=== PATIENT | female | born 1950 | race Caucasian/White ===

== ENCOUNTER → 2022-07-14 14:29 | Outpatient (BNVA) | payer MEDICARE, OTHER, SELFPAY | PROVIDERS: PCP Family Medicine; Visit Provider Nurse Practitioner Family | DX: R53.1 Weakness (principal); R26.9 Unspecified abnormalities of gait and mobility; M54.2 Cervicalgia; M54.50 Low back pain, unspecified | CPT/HCPCS: 99212 ==

== ENCOUNTER → 2022-10-13 15:11 | Outpatient (BNVA) | payer MEDICARE, OTHER, SELFPAY | PROVIDERS: PCP Family Medicine; Visit Provider Nurse Practitioner Family | DX: F09 Unspecified mental disorder due to known physiological condition (principal); R53.1 Weakness; R53.83 Other fatigue; R26.9 Unspecified abnormalities of gait and mobility | CPT/HCPCS: Q3014 ==

== ENCOUNTER → 2023-01-11 10:01 | Outpatient (BNVA) | payer MEDICARE, OTHER, SELFPAY | PROVIDERS: PCP Family Medicine; Visit Provider Nurse Practitioner Family | DX: R53.1 Weakness (principal); R76.8 Other specified abnormal immunological findings in serum; R26.9 Unspecified abnormalities of gait and mobility; H04.123 Dry eye syndrome of bilateral lacrimal glands; K11.7 Disturbances of salivary secretion | CPT/HCPCS: Q3014 ==

== ENCOUNTER 2023-05-03 09:05 | Outpatient (AMB) | payer MEDICARE, OTHER, SELFPAY ==
--- NOTE | 2023-05-03 09:10 | A.OFFVIS_ITS ---
Intake Vital Signs 05/03/23 09:13 Height 5 ft 4 in Weight 162 lb 14.746 oz BMI 28.0 BP 136/74 Blood Pressure Location Rt brachial Position Sitting Pulse 82 Pulse Source Pulse Oximeter Temp 97.2 F Temp Source Skin Pulse Oximetry (%) 98 Intake Visit Reasons: abnormal immunological findings in serum Intake Note: New pt presents today for consult. States she has SS, ? MS Clinical Nurse Manager Required: No Accompanied by: Self / Same As Patient Allergies Seasonal Allergies Allergy (Intermediate, Verified 05/03/23 09:15) Difficulty Breathing Sulfa (Sulfonamide Antibiotics) Allergy (Unknown, Verified 05/03/23 09:15) Swelling lilacs Allergy (Severe, Uncoded 05/03/23 09:15) Anaphylaxis sulpher Adverse Reaction (Severe, Uncoded 05/03/23 09:15) Swelling Medication List - Last Reconciled 05/03/23 by Pamella Harris MD albuterol sulfate 90 mcg/actuation 2 puffs inhalation Q4-6H PRN budesonide-formoterol 160-4.5 mcg/actuation (Symbicort) 2 puffs inhalation BID levothyroxine (Synthroid) 88 mcg PO DAILY midodrine 5 mg PO TID HPI HPI Comments History of Present Illness Details This is a 72-year-old female who presents for evaluation of a possible underlying autoimmune disorder. She states that her sister was diagnosed with SLE and 2 years ago. States that in the she had recurrent jaw swelling and mouth blisters. She stated that she had a biopsy of 1 of those blisters and Sjogren's was suspected but patient did not follow-up with a loan analyst then. About 10 years ago patient started feeling more fatigued. She also stated that she would get right footdrop, worse with activity. She was evaluated by neurologist and MS was entertained. A spinal tap was suggested but patient declined. She denies ever getting a brain MRI. She had spinal MRI recently which did not show any evidence of demyelinating disorder. Patient continues to have dry eyes. She was told she has dry eye by her ammonium nitrate crystallizer and she uses artificial tears when it annoys her every few days. She has dry mouth and uses a prescription mouthwash. She has generalized fatigue. Over the last 1-2 years her fingers turn pale in the cold. She has diffuse joint pain especially in her knees worse with walking. She also gets short of breath after climbing 2-3 flights of stairs. Recently patient fainted and was evaluated by shipping manager, tilt-table test was positive and she was prescribed midodrine. [facility] Medical History Asthma Breast cancer Postconcussion syndrome Traumatic brain injury Surgical History History of surgery of uterus Hx of bilateral mastectomy Hx of cholecystectomy Hx of tubal ligation Family History Father Liver problem Alcoholism Mother Stroke Family/Other Lupus Epilepsy Family/Other No problems noted. Social History Household Members: Spouse Household Members Other:: mercedes, older [place] Alcohol intake: former Patient Tobacco Use Status: Never used Tobacco Review of Systems Const Reports fatigue, Reports headache(s), Reports weakness and Reports weight gain Eyes Reports blurry vision and Reports dry eyes ENT Reports dizziness, Reports dry mouth and Reports headache(s) Card Reports chest pain and Reports dyspnea Resp Reports dyspnea and Reports wheezing GI Reports constipation, Reports heartburn and Reports nausea Reports sexual dysfunction and Reports vaginal dryness Musc Reports arthralgias, Reports joint swelling and Reports stiffness Skin/Breast Reports alopecia and Reports unusual bruising Neuro Reports dizziness, Reports headache(s), Reports memory loss and Reports weakness Psych Reports abnormal sleep pattern, Reports anxiety and Reports memory loss Endo Reports fatigue Aller/Immun Reports wheezing Physical Exam Vital Signs: Last Vital Signs Temp 97.2 F 05/03/23 09:13 Pulse 82 05/03/23 09:13 BP 136/74 05/03/23 09:13 Pulse Ox 98 05/03/23 09:13 BMI result Body Mass Index 28.0 Const General: cooperative, healthy appearing and comfortable Nutritional Appearance: overweight Orientation/consciousness: patient oriented x3 Limitations: no limitations HEENT Head: Yes normocephalic and Yes atraumatic Mouth: moist mucous membranes Resp Effort & Inspection: normal respiratory effort and able to speak in complete sentences Auscultation: clear to auscultation bilaterally Cardio Rate: regular rate Rhythm: regular rhythm Heart sounds: S1 normal heart sound present Skin General skin exam: no rashes or lesions noted Neuro Other: Mildly reduced superficial sensation in her right foot No footdrop bilaterally General: patient oriented x3 Extrem Other: Osteoarthritic changes of both hands with prominent Angel Luis's and Heberden's nodes. No active synovitis Range of motion of both shoulders and elbows Bilateral knee crepitus and pain with full flexion Results Reviewed Results Reviewed: Labs 10/2022? CBC unremarkable? ESR 10? CMP unremarkable? RPR nonreactive? RF negative? AVERY 1-40 dense fine speckled Assessment & Plan Assessment & Plan (1) Positive AVERY (antinuclear antibody): Code(s): R76.8 - Other specified abnormal immunological findings in serum Plan: This is a 72-year-old female who presents for evaluation of multiple complaints including dry eyes dry mouth, generalized fatigue, generalized pain, tingling and numbness of her feet. Stated that she had a biopsy of a blister in her mouth in the s and Sjogren's was suspected. States that sister had lupus. Will order comprehensive serology to screen for underlying autoimmune rheumatic disease. Plan I spent 46 minutes reviewing patient's chart, evaluating patient, ordering diagnostic workup, counseling patient and documenting in the chart Orders: Orders C Reactive Protein Today M35.00 - Sjogren syndrome, unspecified Protein Creatinine Ratio, Ur Today M35.00 - Sjogren syndrome, unspecified Erythrocyte Sedimentation Rate Today M35.00 - Sjogren syndrome, unspecified AVERY Reflex Titer and Pattern Today M35.00 - Sjogren syndrome, unspecified Complement C3 Today M35.00 - Sjogren syndrome, unspecified Complement C4 Today M35.00 - Sjogren syndrome, unspecified Anti DNA DS Antibody Today M35.00 - Sjogren syndrome, unspecified DNA Double Stranded-Crithidia Today M35.00 - Sjogren syndrome, unspecified Anti Extractable Nuclear Ag Today M35.00 - Sjogren syndrome, unspecified Immunofixation Pnl, Serum Today M35.00 - Sjogren syndrome, unspecified Protein Electrophoresis, Serum Today M35.00 - Sjogren syndrome, unspecified Sjogren's Antibodies Today M35.00 - Sjogren syndrome, unspecified UA w Microscopic Today M35.00 - Sjogren syndrome, unspecified Comprehensive Met. Panel Today M35.00 - Sjogren syndrome, unspecified Complete Blood Count Auto Diff Today M35.00 - Sjogren syndrome, unspecified Thyroglobulin Antibodies Today E05.00 - Thyrotoxicosis with diffuse goiter without thyrotoxic crisis or storm Thyroid Peroxidase Antibodies Today E05.00 - Thyrotoxicosis with diffuse goiter without thyrotoxic crisis or storm Coding Level of Care Code New Pt Level 4 (56529) Diagnoses Positive AVERY (antinuclear antibody) R76.8
[2023-05-03 09:13] VITALS: BP 136/74; PULSE 82; TEMP 36.2; O2SAT 98; BMI 28.0
== END 2023-05-03 09:52 | disposition home or self-care (01) ==
PROVIDERS: PCP Family Medicine; Visit Provider Student in an Organized Health Care Education/Training Program
DX: R76.8 Other specified abnormal immunological findings in serum (principal)
CPT/HCPCS: 99204

== ENCOUNTER → 2023-05-03 09:05 | Outpatient (BNVA) | payer MEDICARE, OTHER, SELFPAY | PROVIDERS: PCP Family Medicine; Visit Provider Student in an Organized Health Care Education/Training Program | DX: R76.8 Other specified abnormal immunological findings in serum (principal) | CPT/HCPCS: 99202 ==

== ENCOUNTER 2023-05-22 13:30 | Outpatient (AMB) | payer MEDICARE, OTHER, SELFPAY ==
[2023-05-22 13:34] VITALS: PULSE 76; O2SAT 97; BMI 28.2
--- NOTE | 2023-05-22 13:34 | A.OFFVIS_ITS ---
Intake Vital Signs 05/22/23 13:34 Height 5 ft 4 in Weight 164 lb 6 oz BMI 28.2 Position Sitting Pulse 76 Pulse Source Pulse Oximeter Pulse Oximetry (%) 97 Oxygen Delivery Method Room Air Intake Visit Reasons: follow up Intake Note: Pt presents as a f/u. Pt states things have been pretty rough. Saw a Dr and she wants to know where do we go from here. The provider she saw said she should have had a brain MRI or scan. Powder Guard Required: No Accompanied by: Spouse Allergies Seasonal Allergies Allergy (Intermediate, Verified 05/22/23 13:39) Difficulty Breathing Sulfa (Sulfonamide Antibiotics) Allergy (Unknown, Verified 05/22/23 13:39) Swelling lilacs Allergy (Severe, Uncoded 05/22/23 13:39) Anaphylaxis sulpher Adverse Reaction (Severe, Uncoded 05/22/23 13:39) Swelling Medication List - Last Reconciled 05/22/23 by JAMMIE Evans albuterol sulfate 90 mcg/actuation 2 puffs inhalation Q4-6H PRN levothyroxine (Synthroid) 88 mcg PO DAILY midodrine 2.5 mg PO TID HPI HPI Comments History of Present Illness Details 73-yr-old female presents for f/u visit, accompanied by her . Pt reports that she is overall not feeling as well. She is having increased SOB and episodes of chest tightness. She is using her albuterol inhaler almost daily now. She was given a Symbacort inhaler a while ago, but has not used it. Denies LUE tingling, sharp chest pains. She is still prone to episodes of fatigue, a/w feeling warm and having GI upset- for instance, she took a day trip to a [place] and then next day felt very unwell all day. She can still be lightheaded. Taking Mididrone. Has reduced fluid intake and trying to take more salt- previously was drinking galloons per day. Her notes that pt tries to stay active, swims/walks in their pool- 30- 45min 1-2 x's per day. She did see rheumatology, and is not sure what her next steps are. She has not yet done the labs ordered- was not sure where to do them. Previous work-up: Recent CBC, CMP, B-12, Folate, MMA, ESR, RF < 14, AVERY positive, 1:40, fine speckled pattern. Homocysteine- 12.3 H Tilt-table at [facility],?11/28/2022: Head-up tilt table test is positive for neurocardiogenic syncope. Primarily vaso-depressive response. 0 Minutes (Supine): 129/79 HR 70 No symptoms 2 Minutes (Standing @ 70 degree Tilt): 152/89 HR 85 No symptoms 4 Minutes (Standing): ?142/86 HR 81 No symptoms 6 minutes (Standing): 148/85 HR 89 No symptoms 8 Minutes (Standing): ?135/87 HR 99 No symptoms 10 Minutes (Standing): 116/90 HR 104 No symptoms 12 minutes (Standing): 137/93 HR 112 No symptoms 14 minutes (Standing): 117/94 HR 108 No symptoms 16 Minutes (Standing): 143/108 HR 103 No symptoms 18 Minutes (Standing): 112/77 HR 106 No symptoms 20 Minutes (Standing) ?97/ 69 HR 107 No symptoms 22 Minutes (Standing): 95/ 75 HR 113 Feeling clammy, nausea, cold and sweaty 24 Minutes (Standing): 97/70 HR 109 Feeling better 26 Minutes (Standing): 83/67 ?HR 113 Feeling sweaty? 28 Minutes (Standing): 93/71 HR 107 Still feeling sweaty, weak 30 Minutes (Standing): 68/45 HR 82 Nausea, feeling going to throw up,(Syncopal episode), patient lowered to supine position, patient regained consciousness? 32 Minutes (Supine): 114/68 HR 63 symptoms resolving? 24 hr EEG at [facility], Oct 2022 : Normal L-spine MRI 07/2022 at [facility]- small L4-5 disc protrusion w/ L3-4 and L5-S1 disc bulging. Bilateral recess stenosis at L3-4 and L4-5 w/o significant central canal stenosis. right L4-5 neural foraminal impingement. C-spine MRI w/o (07/2022 at [facility]): No evidence of demyelinating process. degenerative disc disease and disc spur at C4-5 w/o central canal stenosis, multilevel neural foraminal stenosis. 2019 at [facility]:BLE EMG was normal. Brain MRI w/wo- showed mild scattered white matter changes, not consistent with a demyelinating process. Baseline EEG revealed left temporal region presence of a few blunted sharp forms and sharply contoured slowing. Pt was asymptomatic during the study. [facility] Medical History Asthma Breast cancer Postconcussion syndrome Traumatic brain injury Surgical History History of surgery of uterus Hx of bilateral mastectomy Hx of cholecystectomy Hx of tubal ligation Family History Father Liver problem Alcoholism Mother Stroke Family/Other Lupus Epilepsy Family/Other No problems noted. Social History (Updated 05/22/23 @ 13:41 by Mckenzie Dallas CMA) Household Members: Spouse Household Members Other:: [facility] Alcohol intake: former Patient Tobacco Use Status: Never used Tobacco Use of substances other than those prescribed or required for medical reasons: No Review of Systems Const All systems reviewed & are unremarkable except as noted in HPI and below Physical Exam Vital Signs: Last Vital Signs Pulse 76 05/22/23 13:34 Pulse Ox 97 05/22/23 13:34 Oxygen Delivery Method Room Air 05/22/23 13:34 BMI result Body Mass Index 28.2 Const General: cooperative and no acute distress Orientation/consciousness: patient oriented x3 HEENT Head: Yes normocephalic Resp Effort & Inspection: normal respiratory effort and able to speak in complete sentences Auscultation: clear to auscultation bilaterally Cardio Rate: regular rate Rhythm: regular rhythm Neuro General: patient oriented x3 and CN's II-XI intact bilaterally Cognition (Neuro): normal cognition Gait exam (Neuro): Antalgic gait present Motor exam (neuro): 5/5 motor strength present throughout Psych Appearance: grossly normal Mental Status: mental status grossly normal Speech and movement: Normal speech and movement present Affect: normal affect Attitude: cooperative Thought process: Normal thought process present Thought content: Normal thought content present Insight: Good insight present (Psych) Judgement: Good judgement present (Psych) Assessment & Plan Assessment & Plan (1) Weakness: Code(s): R53.1 - Weakness (2) Gait difficulty: Code(s): R26.9 - Unspecified abnormalities of gait and mobility (3) Cognitive dysfunction: Comment: chronic post-concussive. Code(s): F09 - Unspecified mental disorder due to known physiological condition Plan Pt advised to have lab work done as ordered by rheumatology- labs printed and given to pt. Pt reports if any labs are abnormal- they would like referral to Dr Sheridan at [facility]. Pt advised to start her symbicort and f/u w/ her PCP. Reviewed CV/Pulm red flag s/s which warrant urgent attention. Future considerations: f/u brain MRI,? f/u neuropsych eval. Pt requests to f/u prn. Coding Level of Care Code Est Pt Level 3 (13900) Diagnoses Weakness R53.1 Gait difficulty R26.9 Cognitive dysfunction F09
== END 2023-05-22 14:22 | disposition home or self-care (01) ==
PROVIDERS: PCP Family Medicine; Visit Provider Nurse Practitioner Family
DX: R53.1 Weakness (principal); R26.9 Unspecified abnormalities of gait and mobility; S06.0XAS Concussion with loss of consciousness status unknown, sequela; F09 Unspecified mental disorder due to known physiological condition
CPT/HCPCS: 99213

== ENCOUNTER → 2023-05-22 13:30 | Outpatient (BNVA) | payer MEDICARE, OTHER, SELFPAY | PROVIDERS: PCP Family Medicine; Visit Provider Nurse Practitioner Family | DX: R53.1 Weakness (principal); R26.9 Unspecified abnormalities of gait and mobility; F09 Unspecified mental disorder due to known physiological condition | CPT/HCPCS: 99212 ==

== ENCOUNTER 2024-09-29 10:21 | Outpatient (AMB) | payer MEDICARE, OTHER, SELFPAY ==
--- NOTE | 2024-09-29 10:23 | A.OFFVIS_ITS ---
Vital Signs 09/29/24 10:26 Height 5 ft 4 in Weight 154 lb BMI 26.4 BP 124/74 Blood Pressure Location Rt brachial Position Sitting Pulse 74 Pulse Source Pulse Oximeter Pulse Oximetry (%) 99 Oxygen Delivery Method Room Air Intake Visit Reasons: Follow Up Accompanied by: Self / Same As Patient Allergies Seasonal Allergies Allergy (Intermediate, Verified 09/29/24 10:27) Difficulty Breathing Sulfa (Sulfonamide Antibiotics) Allergy (Unknown, Verified 09/29/24 10:27) Swelling lilacs Allergy (Severe, Uncoded 05/22/23 13:39) Anaphylaxis sulpher Adverse Reaction (Severe, Uncoded 05/22/23 13:39) Swelling Medication List - Last Reconciled 09/29/24 by Autumn Vásquez, JAMMIE albuterol sulfate 90 mcg/actuation 2 puffs inhalation Q4-6H PRN levothyroxine (Synthroid) 88 mcg PO DAILY midodrine 2.5 mg PO TID Do you need a note to return to daycare/school/sports/work: No HPI Comments Details: 74-yr-old female presents for f/u of neurological s/s. Pt reports she has completed work-up with Dr. Sibley. Per pt, she was advised that she could not confirm that patient has a a demyelinating or central autoimmune disorder. She reports that she is now more concerned with progressing lower extremity weakness and breathlessness upon exertion. She recently saw her supervisor mails, who per pt, 2 weeks ago, tried her on Prednisone burst 40mg po daily to see if her s/s were responsive to immunosuppression. Pt reports that her s/s were markedly improved as she completed the course of Prednisone- she stated the pain in her legs resolved, she was able to walk 2 miles w/o significant SOB. She was then weaned off of the Prednisone, and her symptoms returned. She spoke to her school director, Dr Lira at [facility], about ? of MG work-up- and was advised to f/u with neuro. 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 She does take a mile walk most mornings, some days she can do this with SOB but never gets stronger or better at this walk. On other days, she can barely make it up the hill, the legs feel weak, sick- like having the flu. After returning from the walk, she may need to sit for an hour, and then the legs are still sore, heavy, uncoordinated. To get up from the ground, she has to jyoti her upper body to pull herself up. She does try to practice getting up from her knees a few times a day. She tends to avoid doing activities over her head. When she brings in groceries, she does several trips of smaller bags. In the last 6 months, she has fallen going up the stairs about 6 times, and down the stairs about 2 times. She had a recent fall while walking on a dusting of snow w/ her dog. PCP has advised her to use a cane- not yet doing this. Can write-not as smooth as before, has to hold her pen slightly differently- attributes to RA dx. Some difficulty w/ buttons/tying laces. Does ok w/ zippers. Dry eye. Denies usual diplopia. May look tired, but denies eye droop. Mild hyposmia and tast sensation since she had chemo. Has to be conscious when swallowing- has to take fluids w/ glue bone drier foods- attributes to Sjogren's. She can feel not right in space dizziness when sitting in a chair, and has orthostatic lightheadedness and room spinning dizziness. No longer taking midodrine for dysautonomia- as it was causing HTN. Takes fluids ok- mostly water, coffee, occasionally milk. Likes salt- salts her meals. Denies tremor or shakiness. BLE muscle cramps (feet/lower legs, but the other day up to her thighs) at rest during the day and night- can be intense. BLE shins through toes, and BUE elbows to fingers, and face- lips- numbness and tingling. In the last year, she had 2 separate week long episodes of urinary incontinence- which self-resolved. She has recent dx of gastroparesis, constipation, but may also have periods of diarrhea. She does talk in her sleep, in the past she has tried to get out bed as she was dreaming that she needed to get up. Previous work-up: Recent CBC, CMP, B-12, Folate, MMA, ESR, RF < 14, AVERY positive, 1:40, fine speckled pattern. Homocysteine- 12.3 H Tilt-table at [facility],?11/28/2022: Head-up tilt table test is positive for neurocardiogenic syncope. Primarily vaso-depressive response. 0 Minutes (Supine): 129/79 HR 70 No symptoms 2 Minutes (Standing @ 70 degree Tilt): 152/89 HR 85 No symptoms 4 Minutes (Standing): ?142/86 HR 81 No symptoms 6 minutes (Standing): 148/85 HR 89 No symptoms 8 Minutes (Standing): ?135/87 HR 99 No symptoms 10 Minutes (Standing): 116/90 HR 104 No symptoms 12 minutes (Standing): 137/93 HR 112 No symptoms 14 minutes (Standing): 117/94 HR 108 No symptoms 16 Minutes (Standing): 143/108 HR 103 No symptoms 18 Minutes (Standing): 112/77 HR 106 No symptoms 20 Minutes (Standing) ?97/ 69 HR 107 No symptoms 22 Minutes (Standing): 95/ 75 HR 113 Feeling clammy, nausea, cold and sweaty 24 Minutes (Standing): 97/70 HR 109 Feeling better 26 Minutes (Standing): 83/67 ?HR 113 Feeling sweaty? 28 Minutes (Standing): 93/71 HR 107 Still feeling sweaty, weak 30 Minutes (Standing): 68/45 HR 82 Nausea, feeling going to throw up,(Syncopal episode), patient lowered to supine position, patient regained consciousness? 32 Minutes (Supine): 114/68 HR 63 symptoms resolving? 24 hr EEG at [facility], Oct 2022 : Normal L-spine MRI 07/2022 at [facility]- small L4-5 disc protrusion w/ L3-4 and L5-S1 disc bulging. Bilateral recess stenosis at L3-4 and L4-5 w/o significant central canal stenosis. right L4-5 neural foraminal impingement. C-spine MRI w/o (07/2022 at [facility]): No evidence of demyelinating process. degenerative disc disease and disc spur at C4-5 w/o central canal stenosis, multilevel neural foraminal stenosis. 2019 at [facility]:BLE EMG was normal. Brain MRI w/wo- showed mild scattered white matter changes, not consistent with a demyelinating process. Baseline EEG revealed left temporal region presence of a few blunted sharp forms and sharply contoured slowing. Pt was asymptomatic during the study. [facility] Medical History Asthma Breast cancer Postconcussion syndrome Traumatic brain injury Surgical History History of surgery of uterus Hx of bilateral mastectomy Hx of cholecystectomy Hx of tubal ligation Family History Father Liver problem Alcoholism Mother Stroke Family/Other Lupus Epilepsy Family/Other No problems noted. Social History (Updated 05/22/23 @ 13:41 by Mckenzie Dallas CMA) Household Members: Spouse Household Members Other:: [facility] Alcohol intake: former Patient Tobacco Use Status: Never used Tobacco Physical Exam Vital Signs: Last Vital Signs Pulse 74 09/29/24 10:26 BP 124/74 09/29/24 10:26 Pulse Ox 99 09/29/24 10:26 Oxygen Delivery Method Room Air 09/29/24 10:26 BMI result Body Mass Index 26.4 Const General: cooperative and no acute distress Resp Effort & Inspection: normal respiratory effort and able to speak in complete sentences Neuro Other: General: A&O x's 3 Expression: Intact Voice: Intact Tremor: Mild lingual tremor on protrusion. Mild RUE kinetic tremor on [id number] exam without dysmetria Tone: Mild BUE left greater than right elbow tone Dyskinesia: None FFM: Bilateral, more so on left, poor fluidity Finger-Nose: Mild RUE kinetic tremor without dysmetria BUE LILA: Bilateral, more so on left, poor fluidity Foot taps: Bilateral, more so on left, decreased Gait: Slow to stand, shorter steps with low floor clearance Psych: Pleasant affect RLE MS: 5/5 LLE MS: 4+-5-/5 General: deep tendon reflexes 2+ bilaterally Psych Mental Status: mental status grossly normal Affect: normal affect Attitude: cooperative Thought process: Normal thought process present Assessment & Plan Assessment & Plan (1) Gait difficulty: Code(s): R26.9 - Unspecified abnormalities of gait and mobility Category: Medical (2) Parasomnia: Code(s): G47.50 - Parasomnia, unspecified Category: Medical (3) Hypersomnia: Code(s): G47.10 - Hypersomnia, unspecified Category: Medical (4) Snoring: Code(s): R06.83 - Snoring Category: Medical (5) Weakness: Code(s): R53.1 - Weakness Category: Medical (6) Cognitive dysfunction: Comment: chronic post-concussive. Code(s): F09 - Unspecified mental disorder due to known physiological condition Category: Medical Plan Reviewed patient's previous workup and her current symptoms. Her previous workup has not elicited a clear etiology or explanation for her progressing symptoms, fatigue, leg heaviness, gait difficulties, orthostatic lightheadedness. This raises suspicion for a movement disorder process. Thus, patient is advised to undergo DaTSCAN to assess for evidence of dopaminergic pathway dysfunction. Upon review of DaTSCAN, we can consider trial of low-dose levodopa, being mindful of patient's tendency for orthostatic lightheadedness. In the meantime, patient encouraged to use a cane. Patient is also advised to undergo in-lab PSG to assess for sleep apnea. Patient requested both tests be done in November to accommodate her 's work schedule. Will follow-up upon review of above and patient to follow-up in clinic in 3-6 months or sooner prn. Addendum 10/14/2024, patient notify the office that she would like to schedule the DaTSCAN sooner than November if possible. DaTSCAN order updated with new order date. Orders: Orders DaTscan 11/10/24 F09 - Unspecified mental disorder due to known physiological condition, R26.9 - Unspecified abnormalities of gait and mobility, G47.50 - Parasomnia, unspecified, G47.10 - Hypersomnia, unspecified, R06.83 - Snoring RT PSG in-lab sleep study 11/10/24 G47.50 - Parasomnia, unspecified, G47.10 - Hypersomnia, unspecified, R06.83 - Snoring Coding Level of Care Code Est Pt Level 4 (03994) Diagnoses Gait difficulty R26.9 Parasomnia G47.50 Hypersomnia G47.10 Snoring R06.83 Weakness R53.1 Cognitive dysfunction F09
[2024-09-29 10:26] VITALS: BP 124/74; PULSE 74; O2SAT 99; BMI 26.4
--- OUTSIDE RECORDS SUMMARY | 2024-09-29 10:27 | XMS_ITS ---
Author Name [facility] Organization Unknown History of Medication Use Medication Directions Dispensed Refills Start Date End Date Stat albuterol 108 (90 Base) MCG/ACT inhaler Inhale 2 puffs into the lungs every 6 (six) hours as needed. 07/16/2024 active hydroxychloroquine (PLAQUENIL) 200 MG tablet Take 1 tablet (200 mg total) by mouth daily. 07/16/2024 active Aspirin Low Dose 81 MG EC tablet Take 1 tablet (81 mg total) by mouth daily. 07/16/2024 active levothyroxine (SYNTHROID) tablet 112 mcg Take 1 tablet (112 mcg total) by mouth daily. 07/16/2024 active rosuvastatin (CRESTOR) tablet 5 mg Take 1 tablet (5 mg total) by mouth daily. 07/16/2024 active folic acid (FOLVITE) tablet 1 mg Take 1 tablet (1 mg total) by mouth. 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
== END 2024-09-29 11:49 | disposition home or self-care (01) ==
PROVIDERS: PCP Family Medicine; Visit Provider Nurse Practitioner Family
DX: R26.9 Unspecified abnormalities of gait and mobility (principal); G47.50 Parasomnia, unspecified; G47.10 Hypersomnia, unspecified; R06.83 Snoring; R53.1 Weakness; R41.89 Other symptoms and signs involving cognitive functions and awareness
CPT/HCPCS: 99214

== ENCOUNTER → 2024-09-29 10:21 | Outpatient (BNVA) | payer MEDICARE, OTHER, SELFPAY | PROVIDERS: PCP Family Medicine; Visit Provider Nurse Practitioner Family | DX: G47.50 Parasomnia, unspecified (principal); G47.10 Hypersomnia, unspecified; R26.9 Unspecified abnormalities of gait and mobility; R06.83 Snoring; R53.1 Weakness; F09 Unspecified mental disorder due to known physiological condition | CPT/HCPCS: 99212 ==

== ENCOUNTER → 2024-11-12 20:30 | Outpatient (REF) | payer MEDICARE, OTHER, SELFPAY | LOC: HO.SL 20:30 | PROVIDERS: PCP Family Medicine; Visit Provider Nurse Practitioner Family | DX: G47.33 Obstructive sleep apnea (adult) (pediatric) (principal); R06.83 Snoring | CPT/HCPCS: 95810 ==

== ENCOUNTER → 2024-11-12 21:58 | Outpatient (BNV) | payer MEDICARE, OTHER, SELFPAY | PROVIDERS: PCP Family Medicine; Visit Provider Psychiatry & Neurology Neurology | DX: G47.33 Obstructive sleep apnea (adult) (pediatric) (principal) | CPT/HCPCS: 95810 ==

== ENCOUNTER 2024-12-26 07:36 | Outpatient (AMB) | payer MEDICARE, OTHER, SELFPAY ==
--- NOTE | 2024-12-26 07:34 | A.OFFVIS_ITS ---
Intake Visit Reasons: 3 mo follow up Allergies Seasonal Allergies Allergy (Intermediate, Verified 12/26/24 07:34) Difficulty Breathing Sulfa (Sulfonamide Antibiotics) Allergy (Unknown, Verified 12/26/24 07:34) Swelling lilacs Allergy (Severe, Uncoded 05/22/23 13:39) Anaphylaxis sulpher Adverse Reaction (Severe, Uncoded 05/22/23 13:39) Swelling Medication List - Last Reconciled 12/26/24 by Autumn Vásquez, BASS FISHER albuterol sulfate 90 mcg/actuation 2 puffs inhalation Q4-6H PRN carbidopa-levodopa 25-100 mg 0.5 - 1 tabs PO BID 30 days levothyroxine (Synthroid) 88 mcg PO DAILY midodrine 2.5 mg PO TID HPI Comments Details: 74-yr-old female presents for f/u televeideo visit for movement symptoms, DaTscan, sleep stud study results. 11/21/2024, JONATHON scan- no evidence of a dopaminergic deficit. 11/12/2024 In-lab PSG showed AHI 21/hour and REM AHI 51/hour, average SpO2 94% with O2 kwame 84% and SpO2 under 88% for 1.2 minute of study time. Snoring was moderate. Average heart rate 66 beats per minute with highest pulse rate during sleep 81 beats per minute. Periodic limb movement of sleep 13/hour and PLMS debi usal index 2.6 per hour. Since last visit, we reviewed the DaTSCAN results with the patient, which was negative for a clear dopaminergic deficit. Patient agreed to trial on carbidopa levodopa to see if this would help, overall, she has felt that the initial trial of low-dose carbidopa levodopa has been beneficial. Pt reports she has notices some changes since starting CD-LD 25-100mg 1 tab at 7am and 1pm. She is tolerating the CD-LD well. Since starting, she has avoided protein during the day to optimize effect, but is taking 100gm protein at dinner/evening. The first change she noticed was decreased left thigh stiffness and improved ability to walk- her noticed even more, as she is able to walk much better in the evening. Her speech feels more fluid, less delayed. She is now noticing that her swallowing issue is more d/t incoordinated chewing- at times biting her inner cheek- and having some drooling while chewing. and then is swallowing before chewing well. She has noticed improved ability overall to do her day to day activities. She did not notice much reduction in tremor- was noticing this particularly with realism. 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 She is now notiicng her arms are not as heavy and feel a bit looser. After dinner, she notices a mild hand tremor while painting. She does continue to become dizzy- it is less frequent and not as severe- not worse since starting CD-LD. She did stop midodrine prior to starting CD-LD. In regards to her sleep and daytime tiredness, her sleep study did show moderate sleep apnea, however she notes that at home she typically sleeps with her head elevated at about 20 degrees, and her mattressed we will raise the head of her bed when she is snoring. However, during the sleep study, she slept a flat position. She typically prefers to sleep in her left side position. She does not think she would be able to tolerate using a CPAP machine, as she is quite claustrophobic. Upon further review of the sleep study, it is noted that all sleep apnea and associated hypoxemia occurred while in the supine position, and none in the left or right sleeping position. 09/29/2024 HPI: Pt reports she has completed work-up with Dr. Sibley. Per pt, she was advised that she could not confirm that patient has a a demyelinating or central autoimmune disorder. She reports that she is now more concerned with progressing lower extremity weakness and breathlessness upon exertion. She recently saw her drapery head former, who per pt, 2 weeks ago, tried her on Prednisone burst 40mg po daily to see if her s/s were responsive to immunosuppression. Pt reports that her s/s were markedly improved as she completed the course of Prednisone- she stated the pain in her legs resolved, she was able to walk 2 miles w/o significant SOB. She was then weaned off of the Prednisone, and her symptoms returned. She spoke to her medical assistant internal medicine, Dr Lira at [facility], about ? of MG work-up- and was advised to f/u with neuro. 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 She does take a mile walk most mornings, some days she can do this with SOB but never gets stronger or better at this walk. On other days, she can barely make it up the hill, the legs feel weak, sick- like having the flu. After returning from the walk, she may need to sit for an hour, and then the legs are still sore, heavy, uncoordinated. To get up from the ground, she has to jyoti her upper body to pull herself up. She does try to practice getting up from her knees a few times a day. She tends to avoid doing activities over her head. When she brings in groceries, she does several trips of smaller bags. In the last 6 months, she has fallen going up the stairs about 6 times, and down the stairs about 2 times. She had a recent fall while walking on a dusting of snow w/ her dog. PCP has advised her to use a cane- not yet doing this. Can write-not as smooth as before, has to hold her pen slightly differently- attributes to RA dx. Some difficulty w/ buttons/tying laces. Does ok w/ zippers. Dry eye. Denies usual diplopia. May look tired, but denies eye droop. Mild hyposmia and tast sensation since she had chemo. Has to be conscious when swallowing- has to take fluids w/ suction drum drier operator foods- attributes to Sjogren's. She can feel not right in space dizziness when sitting in a chair, and has orthostatic lightheadedness and room spinning dizziness. No longer taking mid odrine for dysautonomia- as it was causing HTN. Takes fluids ok- mostly water, coffee, occasionally milk. Likes salt- salts her meals. Denies tremor or shakiness. BLE muscle cramps (feet/lower legs, but the other day up to her thighs) at rest during the day and night- can be intense. BLE shins through toes, and BUE elbows to fingers, and face- lips- numbness and tingling. In the last year, she had 2 separate week long episodes of urinary incontinence- which self-resolved. She has recent dx of gastroparesis, constipation, but may also have periods of diarrhea. She does talk in her sleep, in the past she has tried to get out bed as she was dreaming that she needed to get up. Previous work-up: Recent CBC, CMP, B-12, Folate, MMA, ESR, RF < 14, AVERY positive, 1:40, fine speckled pattern. Homocysteine- 12.3 H Tilt-table at [facility],?11/28/2022: Head-up tilt table test is positive for neurocardiogenic syncope. Primarily vaso-depressive response. 0 Minutes (Supine): 129/79 HR 70 No symptoms 2 Minutes (Standing @ 70 degree Tilt): 152/89 HR 85 No symptoms 4 Minutes (Standing): ?142/86 HR 81 No symptoms 6 minutes (Standing): 148/85 HR 89 No symptoms 8 Minutes (Standing): ?135/87 HR 99 No symptoms 10 Minutes (Standing): 116/90 HR 104 No symptoms 12 minutes (Standing): 137/93 HR 112 No symptoms 14 minutes (Standing): 117/94 HR 108 No symptoms 16 Minutes (Standing): 143/108 HR 103 No symptoms 18 Minutes (Standing): 112/77 HR 106 No symptoms 20 Minutes (Standing) ?97/ 69 HR 107 No symptoms 22 Minutes (Standing): 95/ 75 HR 113 Feeling clammy, nausea, cold and sweaty 24 Minutes (Standing): 97/70 HR 109 Feeling better 26 Minutes (Standing): 83/67 ?HR 113 Feeling sweaty? 28 Minutes (Standing): 93/71 HR 107 Still feeling sweaty, weak 30 Minutes (Standing): 68/45 HR 82 Nausea, feeling going to throw up,(Syncopal episode), patient lowered to supine position, patient regained consciousness? 32 Minutes (Supine): 114/68 HR 63 symptoms resolving? 24 hr EEG at [facility], Oct 2022 : Normal L-spine MRI 07/2022 at [facility]- small L4-5 disc protrusion w/ L3-4 and L5-S1 disc bulging. Bilateral recess stenosis at L3-4 and L4-5 w/o significant central canal stenosis. right L4-5 neural foraminal impingement. C-spine MRI w/o (07/2022 at [facility]): No evidence of demyelinating process. degenerative disc disease and disc spur at C4-5 w/o central canal stenosis, multilevel neural foraminal stenosis. 2019 at [facility]:BLE EMG was normal. Brain MRI w/wo- showed mild scattered white matter changes, not consistent with a demyelinating process. Baseline EEG revealed left temporal region presence of a few blunted sharp forms and sharply contoured slowing. Pt was asymptomatic during the study. [facility] Medical History Traumatic brain injury Asthma Postconcussion syndrome Breast cancer Surgical History History of surgery of uterus Hx of cholecystectomy Hx of bilateral mastectomy Hx of tubal ligation Family History Father Liver problem Alcoholism Mother Stroke Family/Other Lupus Epilepsy Family/Other No problems noted. Social History Household Members: Spouse Household Members Other:: mercedes, [facility] Alcohol intake: former Patient Tobacco Use Status: Never used Tobacco Physical Exam Const General: cooperative and no acute distress Orientation/consciousness: patient oriented x3 Resp Effort & Inspection: normal respiratory effort and able to speak in complete sentences Neuro General: patient oriented x3 Cognition (Neuro): normal cognition Psych Appearance: grossly normal Mental Status: mental status grossly normal Affect: normal affect Attitude: cooperative Telehealth Telehealth Telehealth Platform: [employer] Location of provider rendering services: practice address Location of patient: address on file Patient Identification confirmed using: Name, : Yes Telehealth method: video Patient verbally consented to treatment: Yes Patient verbally consented to billing insurance company: Yes Patient informed of any privacy concerns related to visit: Yes Minutes spent on Phone/Video with Pt.: 35 Assessment & Plan Assessment & Plan (1) Gait difficulty: Code(s): R26.9 - Unspecified abnormalities of gait and mobility Category: Medical (2) Parasomnia: Code(s): G47.50 - Parasomnia, unspecified Category: Medical (3) Hypersomnia: Code(s): G47.10 - Hypersomnia, unspecified Category: Medical (4) Snoring: Code(s): R06.83 - Snoring Category: Medical (5) Weakness: Code(s): R53.1 - Weakness Category: Medical (6) Cognitive dysfunction: Comment: chronic post-concussive. Code(s): F09 - Unspecified mental disorder due to known physiological condition Category: Medical (7) Dysphagia: Code(s): R13.10 - Dysphagia, unspecified Category: Medical (8) Movement disorder: Code(s): G25.9 - Extrapyramidal and movement disorder, unspecified Category: Medical Plan Reviewed DaTSCAN results, which were normal. At this point, patient's movements symptoms do appear levodopa responsive. Discussed that I would like patient to continue on carbidopa levodopa for a little longer, and to see her back in office in person, prior to establishing a firm specific movement disorder diagnosis. Discussed that a negative DaTSCAN does not entirely rule out specific movement disorders, including PD. Continue carbidopa levodopa 25-100 mg 1 tab b.i.d. at 7am and 1pm. Patient advised she does not need to avoid eating protein during the day, rather ideally she can take carbidopa levodopa 30 minutes before or 2 hours after eating protein/a full meal. I would like to see if carbidopa levodopa continues to be as effective, with patient eating her typical meal pattern. Monitor for increase in orthostatic lightheadedness/dizziness. Continue increase physical activity, including daily walks. Continue painting, advised she may want to plan to do detailed painting in the morning. We will refer for speech therapy eval and treat for dysphagia and chewing difficulties. We will request at [facility], as this is closer to patient's home. Reviewed in-lab sleep study results which showed moderate sleep apnea, however patient declines trial of CPAP due to claustrophobia. Patient encouraged to sleep on her side, or with head elevated. Reviewed OTC devices that can help train someone to sleep on her side. Future considerations: Mandibular device, ENT consult. Repeat sleep study, with head of bed elevated to 20 degrees (which is patient's typical sleeping position). Pt to follow-up in 3-4 months or sooner prn. Orders: Referrals Speech and Hearing Referral G25.9 - Extrapyramidal and movement disorder, unspecified, R13.10 - Dysphagia, unspecified Coding Level of Care Code Tele Est Pt Level 4 (40608) Diagnoses Gait difficulty R26.9 Parasomnia G47.50 Hypersomnia G47.10 Snoring R06.83 Weakness R53.1 Cognitive dysfunction F09 Dysphagia R13.10 Movement disorder G25.9
--- OUTSIDE RECORDS SUMMARY | 2024-12-26 07:38 | XMS_ITS | Clinical Summary ---
Author Organization [address] [facility] Address [address] [place] [address] Phone Care Team Providers Care Customer Operations Specialist Name Role Phone Unavailable Primary Care Provider Unavailabl e Allergies Active Allergy Reactions Criticality Noted Date Comments Pollen Extracts 09/10/2024 Sulfur 09/10/2024 Medications levothyroxine (SYNTHROID, LEVOTHROID) 88 mcg tablet Take 1 tablet (88 mcg total) by mouth daily. Active albuterol HFA (PROAIR HFA ; PROVENTIL HFA ; VENTOLIN HFA) 90 mcg/actuation inhaler Inhale 2 puffs by mouth every 6 hours as needed. Active aspirin 81 mg EC tablet Take 1 tablet (81 mg total) by mouth 1 (one) time each day. Active loratadine (CLARITIN) 10 mg tablet Take 1 tablet (10 mg total) by mouth. Active Immunizations Name Administration Dates Next Due [facility] SARS-CoV-2 COVID -19, vector-nr, [id number], preservative free 12/18/2020 Surgical History Surgery Date Site/Laterality Comments OTHER SURGICAL HISTORY PROCEDURE:DOUBLE MASTECTOMY GALLBLADDER SURGERY PROCEDURE:GALLBLADDER SURGERY MYOMECTOMY PROCEDURE:MYOMECTOMY SKIN CANCER EXCISION PROCEDURE:SKIN CANCER EXCISION Medical History Medical History Date Comments Hypothyroidism DX:Hypothyroidis m Pure hypercholesterolemia DX:Pur e hypercholesterolemia Social History Tobacco Use Types Packs/Day Years Used Date Smoking Tobacco: Never Assessed Comments Unknown Sex and Gender Information Value Date Recorded Sex Assigned at Not on file Legal Sex Female 1:49 PM EDT Gender Identity Not on file Sexual Orientation Not on file Obstetrics History Last Filed Vital Signs Vital Sign Reading Time Taken Comments Blood Pressure 116/80 09/10/2024 4:03 PM EST Pulse 71 09/10/2024 4:03 PM EST Temperature 36.1 ??C (96.9 ??F) 09/10/2024 4:03 PM ES T Respiratory Rate - - Oxygen Saturation 97% 09/10/2024 4:03 PM EST Inhaled Oxygen Concentration - - Weight 78.9 kg (174 lb) 09/10/2024 4:03 PM EST Height 162.6 cm (5' 4 ) 09/10/2024 4:03 PM EST Body Mass Index 29.87 09/10/2024 4:03 PM EST Plan of Treatment Health Maintenance Due Date Last Done Comments Breast Cancer Screening 1950 Zoster Vaccines (1 of 2) 1971 Colorectal Cancer Screening: Colonoscopy 07/24/2024 Depression Screening 07/24/2024 Falls Risk Assessment 07/24/2024 Hepatitis C Screening 07/24/2024 Medicare Annual Wellness Visit 07/24/2024 Social Influencers of Health Screening 07/24/2024 Osteoporosis Screening (Bone Density Screening) 10/17/2027 10/17/2017 Cholesterol Screening (Lipid Panel) 01/16/2028 01/15/2023 DTaP,Tdap,and Td Vaccines (4 - Td or Tdap) 03/26/2029 03/26/2019, 11/27/2007, 10/15/1997 Pneumococcal Vaccine: 50+ Years Completed 09/22/2021, 09/10/2017, 10/13/2013 RSV Immunization Patients 60+ Years Old Completed 11/04/2023 Influenza Vaccine Completed 08/07/2024, , 07/06/2022, Additional history exists COVID-19 Vaccine Completed 08/12/2024, , 07/31/2022, Additional history exists HIB Vaccines Aged Out No longer eligi ble based on patient's age to complete this topic HPV Vaccines Aged Out No longer eligi ble based on patient's age to complete this topic Hepatitis A Vaccines Aged Out No long er eligible based on patient's age to complete this topic Hepatitis B Vaccines Aged Out No long er eligible based on patient's age to complete this topic IPV Vaccines Aged Out No longer eligi ble based on patient's age to complete this topic MMR Vaccines Aged Out No longer eligi ble based on patient's age to complete this topic Meningococcal ACWY Vaccine Aged Out N o longer eligible based on patient's age to complete this topic Meningococcal B Vacine Aged Out No lo nger eligible based on patient's age to complete this topic RSV Immunization Patients Under 20 months Aged Out No longer eligible based on patient's age to complete this topic Varicella Vaccines Aged Out No longer eligible based on patient's age to complete this topic Insurance [facility]
--- OUTSIDE RECORDS SUMMARY | 2024-12-26 07:38 | XMS_ITS | Clinical Summary ---
Author Organization [facility] Facility Address [address] [place] [id number] Care Team Providers Care Plant Equipment Engineer Name Role Phone Unavailable Primary Care Provider Unavailabl e Social History Tobacco Use Types Packs/Day Years Used Date Smoking Tobacco: Never Assessed Comments Unknown Sex and Gender Information Value Date Recorded Sex Assigned at Not on file Legal Sex Female 1:51 PM EDT Gender Identity Not on file Sexual Orientation Not on file Plan of Treatment Health Maintenance Due Date Last Done Comments Breast Cancer Screening 1950 Colorectal Cancer Screening: Annual FOBT 2001 Colorectal Cancer Screening: Colonoscopy 2001 Colorectal Cancer Screening: Sigmoidoscopy 2001 Pneumococcal Vaccine: 65+ Ye ars (1 of 1 - PCV) 2017 Influenza Vaccine (#1) 2024 Hepatitis B Vaccine Aged Out No longe r eligible based on patient's age to complete this topic Insurance MEDICARE [facility]
--- OUTSIDE RECORDS SUMMARY | 2024-12-26 07:38 | XMS_ITS | Clinical Summary ---
Author Organization [facility] Address [address] [place] [id number] Care Team Providers Care Pump And Blower Operator Name Role Phone Unavailable Primary Care Provider Unavailabl e Medications Medication Sig Dispensed Refills Start Date End Date Status Aspirin Low Dose 81 MG EC tablet Take 1 tablet (81 mg total) by mouth daily. 0 06/02/2024 Active levothyroxine (SYNTHROID) tablet 112 mcg Take 1 tablet (112 mcg total) by mouth daily. 0 06/24/2015 Active hydroxychloroquine (PLAQUENIL) 200 MG tablet Take 1 tablet (200 mg total) by mouth daily. 0 05/22/2024 Active methotrexate 2.5 MG tablet Take 8 tablets (20 mg total) by mouth every 7 days 0 05/22/2024 Active rosuvastatin (CRESTOR) tablet 5 mg Take 1 tablet (5 mg total) by mouth daily. 0 06/02/2024 Active folic acid (FOLVITE) tablet 1 mg Take 1 tablet (1 mg total) by mouth. 0 04/25/2024 Active albuterol 108 (90 Base) MCG/ACT inhaler Inhale 2 puffs into the lungs every 6 (six) hours as needed. 0 Active Social History Tobacco Use Types Packs/Day Years Used Date Smoking Tobacco: Never Assessed Tobacco Cessation:Counseling Given: Not Answered Sex and Gender Information Value Date Recorded Sex Assigned at Female 06/23/2024 10:51 AM EDT Gender Identity Not on file Sexual Orientation Not on file Job Start Date Occupation Industry Not on file Not on file Not on file Last Filed Vital Signs Vital Sign Reading Time Taken Comments Blood Pressure 126/83 07/10/2024 2:02 PM EDT Pulse 79 07/10/2024 2:02 PM EDT Temperature 36.2 ??C (97.2 ??F) 07/10/2024 2:02 PM ED T Respiratory Rate - - Oxygen Saturation - - Inhaled Oxygen Concentration - - Weight 79.4 kg (175 lb) 07/10/2024 2:02 PM EDT Height 162.6 cm (5' 4 ) 07/10/2024 2:02 PM EDT Body Mass Index 30.04 07/10/2024 2:02 PM EDT Plan of Treatment Health Maintenance Due Date Last Done Comments Hepatitis C Screening 1950 Depression Screening 1964 Preventative Health Evaluation 1970 Colon Cancer Screening (Colonoscopy) 1997 Breast Cancer Screening (Mammogram) 2002 Shingrix-Zoster Vaccine (1 of 2) 2002 Fall Risk Assessment 2017 Osteoporosis Screening (DEXA Scan) 2017 DTap / Tdap / Td (2 - Td or Tdap) 11/27/2017 11/27/2007, 10/15/1997 COVID-19 Vaccine ( - season) 2024 01/05/2022, 08/08/2021, 12/18/2020 Influenza Vaccine (#1) 2024 3, 07/06/2022, 08/08/2021, Additional history exists Pneumococcal Vaccine Completed 09/22/2021, 09/10/2017, 10/13/2013 RSV Adult > 60+ Yrs or Completed 11/04/2023 Hepatitis B Vaccines Aged Out No long er eligible based on patient's age to complete this topic RSV Ped < 20 months Aged Out No longe r eligible based on patient's age to complete this topic
== END 2024-12-26 12:11 | disposition home or self-care (01) ==
PROVIDERS: PCP Family Medicine; Visit Provider Nurse Practitioner Family
DX: G47.50 Parasomnia, unspecified (principal); G47.10 Hypersomnia, unspecified; R26.9 Unspecified abnormalities of gait and mobility; R06.83 Snoring; R53.1 Weakness; R41.89 Other symptoms and signs involving cognitive functions and awareness; R13.10 Dysphagia, unspecified; G25.9 Extrapyramidal and movement disorder, unspecified
CPT/HCPCS: 99214

== ENCOUNTER 2025-04-06 08:00 | Outpatient (AMB) | payer MEDICARE, OTHER, SELFPAY ==
[2025-04-06 08:01] VITALS: BP 124/78; PULSE 71; O2SAT 99; BMI 29.0
--- NOTE | 2025-04-06 08:01 | A.OFFVIS_ITS ---
Vital Signs 04/06/25 08:01 Height 5 ft 4 in Weight 169 lb BMI 29.0 BP 124/78 Blood Pressure Location Lt brachial Position Sitting Pulse 71 Pulse Source Pulse Oximeter Pulse Oximetry (%) 99 Oxygen Delivery Method Room Air Intake Visit Reasons: 6 mo follow up Intake Note: Patient presents for follow up. Watch Crystal Grinder Required: No Accompanied by: Self / Same As Patient Allergies Seasonal Allergies Allergy (Intermediate, Verified 04/06/25 08:05) Difficulty Breathing Sulfa (Sulfonamide Antibiotics) Allergy (Unknown, Verified 04/06/25 08:05) Swelling lilacs Allergy (Severe, Uncoded 05/22/23 13:39) Anaphylaxis sulpher Adverse Reaction (Severe, Uncoded 05/22/23 13:39) Swelling Medication List - Last Reconciled 04/06/25 by JAMMIE Evans albuterol sulfate 90 mcg/actuation 2 puffs inhalation Q4-6H PRN carbidopa-levodopa 25-100 mg 0.5 - 1 tabs PO BID 30 days levothyroxine 100 mcg PO DAILY HPI Comments Details: 74-yr-old female presents for follow-up visit of movement disorder, with negative DaTSCAN, in setting of history of TBI. Patient continues to see improvement since starting carbidopa levodopa, though wonders if she would have further benefit from taking it more frequently. She notes her also sees benefit from starting the carbidopa levodopa. She is curious about how to manage taking the carbidopa levodopa while taking metformin-as she was told she needed to increase her protein intake due to starting metformin. Patient did recently undergo swallow study which showed a mild dysphagia, and is currently undergoing speech therapy. Pt's current movement Disorder medication regimen: Carbidopa/Levodopa twice a day at 6:00 AM and 1:00 PM Do medication effects last between doses: May wear off Activities of daily living (ADL's): Independent Instrumental activities of daily living (IADL's): Independent Swallowing difficulty: Present, undergoing speech therapy Cough: Denies Drooling: Present Orthostatic lightheadedness: Present due to dysautonomia- manages with standing slowly and taking plenty of fluids. Constipation: Present, managed with herbal remedy Urinary symptoms: Denies Tremor: None Dyskinesia: None Stiffness: Present in the morning before medication Musculoskeletal symptoms: Denies Gait difficulties or changes: Present, improved with medication Freezing episodes of gait: Denies Falls: Denies Mood difficulties or changes: Denies, mood improved with medication Hallucinations: Present, occasional vivid dreams and auditory hallucinations Memory difficulties or changes: Present, related to traumatic brain injury Sleep difficulties: vivid dreams that sometimes lead to sleepwalking- which precedes starting carbidopa levodopa Exercise routine: None, considering physical therapy and Parkinson's movement- specific classes Socialization and cognitive activities: Engages in drawing and cognitive activities 12/26/2024 HPI: 11/21/2024, JONATHON scan- no evidence of a dopaminergic deficit. 11/12/2024 In-lab PSG showed AHI 21/hour and REM AHI 51/hour, average SpO2 94% with O2 kwame 84% and SpO2 under 88% for 1.2 minute of study time. Snoring was moderate. Average heart rate 66 beats per minute with highest pulse rate during sleep 81 beats per minute. Periodic limb movement of sleep 13/hour and PLMS a rousal index 2.6 per hour. Since last visit, we reviewed the DaTSCAN results with the patient, which was negative for a clear dopaminergic deficit. Patient agreed to trial on carbidopa levodopa to see if this would help, overall, she has felt that the initial trial of low-dose carbidopa levodopa has been beneficial. Pt reports she has notices some changes since starting CD-LD 25-100mg 1 tab at 7 am and 1pm. She is tolerating the CD-LD well. Since starting, she has avoided protein during the day to optimize effect, but is taking 100gm protein at dinner/evening. The first change she noticed was decreased left thigh stiffness and improved ability to walk- her noticed even more, as she is able to walk much better in the evening. Her speech feels more fluid, less delayed. She is now noticing that her swallowing issue is more d/t incoordinated chewing- at times biting her inner cheek- and having some drooling while chewing. and then is swallowing before chewing well. She has noticed improved ability overall to do her day to day activities. She did not notice much reduction in tremor- was noticing this particularly with realism. 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 She is now notiicng her arms are not as heavy and feel a bit looser. After dinner, she notices a mild hand tremor while painting. She does continue to become dizzy- it is less frequent and not as severe- not worse since starting CD-LD. She did stop midodrine prior to starting CD-LD. In regards to her sleep and daytime tiredness, her sleep study did show moderate sleep apnea, however she notes that at home she typically sleeps with her head elevated at about 20 degrees, and her mattressed we will raise the head of her bed when she is snoring. However, during the sleep study, she slept a flat position. She typically prefers to sleep in her left side position. She does not think she would be able to tolerate using a CPAP machine, as she is quite claustrophobic. Upon further review of the sleep study, it is noted that all sleep apnea and associated hypoxemia occurred while in the supine position, and none in the left or right sleeping position. 09/29/2024 HPI: Pt reports she has completed work-up with Dr. Sibley. Per pt, she was advised that she could not confirm that patient has a a demyelinating or central autoimmune disorder. She reports that she is now more concerned with progressing lower extremity weakness and breathlessness upon exertion. She recently saw her director business integration, who per pt, 2 weeks ago, tried her on Prednisone burst 40mg po daily to see if her s/s were responsive to immunosuppression. Pt reports that her s/s were markedly improved as she completed the course of Prednisone- she stated the pain in her legs resolved, she was able to walk 2 miles w/o significant SOB. She was then weaned off of the Prednisone, and her symptoms returned. She spoke to her manager of program, Dr Lira at [facility], about ? of MG work-up- and was advised to f/u with neuro. She describes the BLE as in the morning, her legs are heavy, has to jyoti effort to pickling solution maker the legs, the steps are not always coordinated, and the legs are slow to respond or do not step as far as she would like. She does take a mile walk most mornings, some days she can do this with SOB but never gets stronger or better at this walk. On other days, she can barely make it up the hill, the legs feel weak, sick- like having the flu. After returning from the walk, she may need to sit for an hour, and then the legs are still sore, heavy, uncoordinated. To get up from the ground, she has to jyoti her upper body to pull herself up. She does try to practice getting up from her knees a few times a day. She tends to avoid doing activities over her head. When she brings in groceries, she does several trips of smaller bags. In the last 6 months, she has fallen going up the stairs about 6 times, and down the stairs about 2 times. She had a recent fall while walking on a dusting of snow w/ her dog. PCP has advised her to use a cane- not yet doing this. Can write-not as smooth as before, has to hold her pen slightly differently- attributes to RA dx. Some difficulty w/ buttons/tying laces. Does ok w/ zippers. Dry eye. Denies usual diplopia. May look tired, but denies eye droop. Mild hyposmia and tast sensation since she had chemo. Has to be conscious when swallowing- has to take fluids w/ drier and grinder tender foods- attributes to Sjogren's. She can feel not right in space dizziness when sitting in a chair, and has orthostatic lightheadedness and room spinning dizziness. No longer taking midodrine for dysautonomia- as it was causing HTN. Takes fluids ok- mostly water, coffee, occasionally milk. Likes salt- salts her meals. Denies tremor or shakiness. BLE muscle cramps (feet/lower legs, but the other day up to her thighs) at rest during the day and night- can be intense. BLE shins through toes, and BUE elbows to fingers, and face- lips- numbness and tingling. In the last year, she had 2 separate week long episodes of urinary incontinence- which self-resolved. She has recent dx of gastroparesis, constipation, but may also have periods of diarrhea. She does talk in her sleep, in the past she has tried to get out bed as she was dreaming that she needed to get up. Previous work-up: Recent CBC, CMP, B-12, Folate, MMA, ESR, RF < 14, AVERY positive, 1:40, fine speckled pattern. Homocysteine- 12.3 H Tilt-table at [facility],?11/28/2022: Head-up tilt table test is positive for neurocardiogenic syncope. Primarily vaso-depressive response. 0 Minutes (Supine): 129/79 HR 70 No symptoms 2 Minutes (Standing @ 70 degree Tilt): 152/89 HR 85 No symptoms 4 Minutes (Standing): ?142/86 HR 81 No symptoms 6 minutes (Standing): 148/85 HR 89 No symptoms 8 Minutes (Standing): ?135/87 HR 99 No symptoms 10 Minutes (Standing): 116/90 HR 104 No symptoms 12 minutes (Standing): 137/93 HR 112 No symptoms 14 minutes (Standing): 117/94 HR 108 No symptoms 16 Minutes (Standing): 143/108 HR 103 No symptoms 18 Minutes (Standing): 112/77 HR 106 No symptoms 20 Minutes (Standing) ?97/ 69 HR 107 No symptoms 22 Minutes (Standing): 95/ 75 HR 113 Feeling clammy, nausea, cold and sweaty 24 Minutes (Standing): 97/70 HR 109 Feeling better 26 Minutes (Standing): 83/67 ?HR 113 Feeling sweaty? 28 Minutes (Standing): 93/71 HR 107 Still feeling sweaty, weak 30 Minutes (Standing): 68/45 HR 82 Nausea, feeling going to throw up,(Syncopal episode), patient lowered to supine position, patient regained consciousness? 32 Minutes (Supine): 114/68 HR 63 symptoms resolving? 24 hr EEG at [facility], Oct 2022 : Normal L-spine MRI 07/2022 at [facility]- small L4-5 disc protrusion w/ L3-4 and L5-S1 disc bulging. Bilateral recess stenosis at L3-4 and L4-5 w/o significant central canal stenosis. right L4-5 neural foraminal impingement. C-spine MRI w/o (07/2022 at [facility]): No evidence of demyelinating process. degenerative disc disease and disc spur at C4-5 w/o central canal stenosis, multilevel neural foraminal stenosis. 2019 at [facility]:BLE EMG was normal. Brain MRI w/wo- showed mild scattered white matter changes, not consistent with a demyelinating process. Baseline EEG revealed left temporal region presence of a few blunted sharp forms and sharply contoured slowing. Pt was asymptomatic during the study. [facility] Medical History Traumatic brain injury Asthma Postconcussion syndrome Breast cancer Surgical History History of surgery of uterus Hx of cholecystectomy Hx of bilateral mastectomy Hx of tubal ligation Family History Father Liver problem Alcoholism Mother Stroke Family/Other Lupus Epilepsy Family/Other No problems noted. Social History Household Members: Spouse Household Members Other:: mercedes, [facility] Alcohol intake: former Patient Tobacco Use Status: Never used Tobacco Physical Exam Vital Signs: Last Vital Signs Pulse 71 04/06/25 08:01 BP 124/78 04/06/25 08:01 Pulse Ox 99 04/06/25 08:01 Oxygen Delivery Method Room Air 04/06/25 08:01 BMI result Body Mass Index 29.0 Const General: cooperative and no acute distress Resp Effort & Inspection: normal respiratory effort and able to speak in complete sentences Neuro Other: General: A&O x's 3 Expression: Improved facial expression Voice: Intact Tremor: Mild lingual tremor on protrusion. Tone: Mild BUE left greater than right elbow tone Dyskinesia: None FFM: Bilateral, more so on left- improved Foot taps: Bilateral, more so on left- improved Gait: Slow to stand, shorter steps with low floor clearance Psych: Pleasant affect General: deep tendon reflexes 2+ bilaterally Psych Mental Status: mental status grossly normal Affect: normal affect Attitude: cooperative Thought process: Normal thought process present Assessment & Plan Assessment & Plan (1) Gait difficulty: Code(s): R26.9 - Unspecified abnormalities of gait and mobility Category: Medical (2) Parasomnia: Code(s): G47.50 - Parasomnia, unspecified Category: Medical Qualifiers: Parasomnia type: REM sleep behavior disorder Qualified Code(s): G47.52 - REM sleep behavior disorder (3) Hypersomnia: Code(s): G47.10 - Hypersomnia, unspecified Category: Medical (4) Snoring: Code(s): R06.83 - Snoring Category: Medical (5) Weakness: Code(s): R53.1 - Weakness Category: Medical (6) Cognitive dysfunction: Comment: chronic post-concussive. Code(s): F09 - Unspecified mental disorder due to known physiological condition Category: Medical (7) Dysphagia: Code(s): R13.10 - Dysphagia, unspecified Category: Medical (8) Movement disorder: Code(s): G25.9 - Extrapyramidal and movement disorder, unspecified Category: Medical Plan Discussion Notes During the visit, we discussed that previous DaTSCAN results- normal. At this point, patient's movements symptoms continue to be levodopa responsive. Discussed again that a negative DaTSCAN does not entirely rule out specific movement disorders, including PD. We discussed that additional testing could include skin biopsies, however we have decided to hold on further testing at this point. We discussed the patient's current medication regimen, particularly the timing and dietary considerations for carbidopa/levodopa administration. We also addressed the potential side effects, such as hallucinations and vivid dreams, and strategies to mitigate these risks, including environmental modifications and possible medication adjustments. The importance of maintaining a balanced protein intake and the potential need for physical therapy post-speech therapy were highlighted. PlanPatient was informed and verbally consented to the use of an ambient scribe for clinic note documentation during this visit. Increase carbidopa levodopa 25-100 mg from 1 tab b.i.d. at 7am and 1pm to 1 tab 3 x's per day. * Patient advised she does not need to avoid eating protein during the day, rather ideally she can take carbidopa levodopa 30 minutes before or 2 hours after eating protein/a full meal. Monitor for increase in orthostatic lightheadedness/dizziness. Monitor for possible hallucinations and parasomnias. Continue increase physical activity, including daily walks. * Patient may benefit from trying PD/movement disorder classes at the [facility]. Continue painting, advised she may want to plan to do detailed painting in the morning. Continue speech therapy treatment for dysphagia and chewing difficulties- at [facility], as this is closer to patient's home. Future considerations: PT at [facility]. Previously in-lab sleep study results which showed moderate sleep apnea, however patient has declined trial of CPAP due to claustrophobia. * Continue to sleep on left side, or with head elevated. May use an OTC device to support side sleeping. * Future considerations: Mandibular device, ENT consult. Repeat sleep study, with head of bed elevated to 20 degrees (which is patient's typical sleeping position). Pt to follow-up in 4-6 months or sooner prn. Medications: New metformin 500 mg PO DAILY Changed From carbidopa-levodopa 25-100 mg take w/ a cracker 30 minutes before breakfast and dinner, 0.5 - 1 tabs PO BID 30 days 60 tabs 3RF To carbidopa-levodopa 25-100 mg take w/ a cracker 30 minutes before protein 1 tab PO TID 270 tabs 1RF 90 days Coding Level of Care Code Est Pt Level 4 (76733) Diagnoses Gait difficulty R26.9 REM sleep behavior disorder G47.52 Parasomnia type: REM sleep behavior disorder Hypersomnia G47.10 Snoring R06.83 Weakness R53.1 Cognitive dysfunction F09 Dysphagia R13.10 Movement disorder G25.9
== END 2025-04-06 09:03 | disposition home or self-care (01) ==
LOC: HO.HSMS 08:00
PROVIDERS: PCP Family Medicine; Visit Provider Nurse Practitioner Family
DX: R26.9 Unspecified abnormalities of gait and mobility (principal); G47.52 REM sleep behavior disorder; G47.10 Hypersomnia, unspecified; R06.83 Snoring; R53.1 Weakness; F07.81 Postconcussional syndrome; R13.10 Dysphagia, unspecified; G25.9 Extrapyramidal and movement disorder, unspecified
CPT/HCPCS: 99214

== ENCOUNTER → 2025-04-06 08:00 | Outpatient (BNVA) | payer MEDICARE, OTHER, SELFPAY | PROVIDERS: PCP Family Medicine; Visit Provider Nurse Practitioner Family | DX: G25.9 Extrapyramidal and movement disorder, unspecified (principal); R26.9 Unspecified abnormalities of gait and mobility; R53.1 Weakness; G47.52 REM sleep behavior disorder; G47.10 Hypersomnia, unspecified; R06.83 Snoring; R13.10 Dysphagia, unspecified; F09 Unspecified mental disorder due to known physiological condition; Z87.820 Personal history of traumatic brain injury | CPT/HCPCS: 99212 ==

== ENCOUNTER 2025-05-15 12:54 | Outpatient (AMB) | payer MEDICARE, OTHER, SELFPAY ==
--- NOTE | 2025-05-15 12:48 | A.OFFVIS_ITS ---
Intake Visit Reasons: FU per Intake Note: Patient presents for follow up. Mill Tender Washing Required: No Accompanied by: Self / Same As Patient Allergies Seasonal Allergies Allergy (Intermediate, Verified 05/15/25 12:49) Difficulty Breathing Sulfa (Sulfonamide Antibiotics) Allergy (Unknown, Verified 05/15/25 12:49) Swelling lilacs Allergy (Severe, Uncoded 05/22/23 13:39) Anaphylaxis sulpher Adverse Reaction (Severe, Uncoded 05/22/23 13:39) Swelling HPI Comments Details: 74-yr-old female presents for urgent tele video visit to discuss symptoms of diplopia, in setting of movement disorder, with negative DaTSCAN, in setting of history of TBI. Patient is sent portal message, reporting new episode of binocular horizontal diplopia-she did do a cover uncover test of her eyes, in the diplopia was only present with both eyes. She had one episode of looking down upon her who was walking in their yard- she saw 2 distinct images of her walking towards her, once he got closer to her. She notes that prior to this, she had been bending over doing gardening and weaning, and it was hot row, so she was probably a bit dehydrated. She reports she has a remote history of psotconcussive diplopi- overlapping blurry images, but had never had this crystal clear horizontal diplopia before. 04/06/2025, previous HPI: Patient continues to see improvement since starting carbidopa levodopa, though wonders if she would have further benefit from taking it more frequently. She notes her also sees benefit from starting the carbidopa levodopa. She is curious about how to manage taking the carbidopa levodopa while taking metformin-as she was told she needed to increase her protein intake due to starting metformin. Patient did recently undergo swallow study which showed a mild dysphagia, and is currently undergoing speech therapy. Pt's current movement Disorder medication regimen: Carbidopa/Levodopa twice a day at 6:00 AM and 1:00 PM Do medication effects last between doses: May wear off Activities of daily living (ADL's): Independent Instrumental activities of daily living (IADL's): Independent Swallowing difficulty: Present, undergoing speech therapy Cough: Denies Drooling: Present Orthostatic lightheadedness: Present due to dysautonomia- manages with standing slowly and taking plenty of fluids. Constipation: Present, managed with herbal remedy Urinary symptoms: Denies Tremor: None Dyskinesia: None Stiffness: Present in the morning before medication Musculoskeletal symptoms: Denies Gait difficulties or changes: Present, improved with medication Freezing episodes of gait: Denies Falls: Denies Mood difficulties or changes: Denies, mood improved with medication Hallucinations: Present, occasional vivid dreams and auditory hallucinations Memory difficulties or changes: Present, related to traumatic brain injury Sleep difficulties: vivid dreams that sometimes lead to sleepwalking- which precedes starting carbidopa levodopa Exercise routine: None, considering physical therapy and Parkinson's movement- specific classes Socialization and cognitive activities: Engages in drawing and cognitive activities 12/26/2024 HPI: 11/21/2024, JONATHON scan- no evidence of a dopaminergic deficit. 11/12/2024 In-lab PSG showed AHI 21/hour and REM AHI 51/hour, average SpO2 94% with O2 kwame 84% and SpO2 under 88% for 1.2 minute of study time. Snoring was moderate. Average heart rate 66 beats per minute with highest pulse rate during sleep 81 beats per minute. Periodic limb movement of sleep 13/hour and PLMS arousal index 2.6 per hour. Since last visit, we reviewed the DaTSCAN results with the patient, which was negative for a clear dopaminergic deficit. Patient agreed to trial on carbidopa levodopa to see if this would help, overall, she has felt that the initial trial of low-dose carbidopa levodopa has been beneficial. Pt reports she has notices some changes since starting CD-LD 25-100mg 1 tab at 7am and 1pm. She is tolerating the CD-LD well. Since starting, she has avoided protein during the day to optimize effect, but is taking 100gm protein at dinner/evening. The first change she noticed was decreased left thigh stiffness and improved ability to walk- her noticed even more, as she is able to walk much better in the evening. Her speech feels more fluid, less delayed. She is now noticing that her swallowing issue is more d/t incoordinated chewing- at times biting her inner cheek- and having some drooling while chewing. and then is swallowing before chewing well. She has noticed improved ability overall to do her day to day activities. She did not notice much reduction in tremor- was noticing this particularly with realism. 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 She is now notiicng her arms are not as heavy and feel a bit looser. After dinner, she notices a mild hand tremor while painting. She does continue to become dizzy- it is less frequent and not as severe- not worse since starting CD-LD. She did stop midodrine prior to starting CD-LD. In regards to her sleep and daytime tiredness, her sleep study did show moderate sleep apnea, however she notes that at home she typically sleeps with her head elevated at about 20 degrees, and her mattressed we will raise the head of her bed when she is snoring. However, during the sleep study, she slept a flat position. She typically prefers to sleep in her left side position. She does not think she would be able to tolerate using a CPAP machine, as she is quite claustrophobic. Upon further review of the sleep study, it is noted that all sleep apnea and associated hypoxemia occurred while in the supine position, and none in the left or right sleeping position. 09/29/2024 HPI: Pt reports she has completed work-up with Dr. Sibley. Per pt, she was advised that she could not confirm that patient has a a demyelinating or central autoimmune disorder. She reports that she is now more concerned with progressing lower extremity weakness and breathlessness upon exertion. She recently saw her cake stripper, who per pt, 2 weeks ago, tried her on Prednisone burst 40mg po daily to see if her s/s were responsive to immunosuppression. Pt reports that her s/s were markedly improved as she completed the course of Prednisone- she stated the pain in her legs resolved, she was able to walk 2 miles w/o significant SOB. She was then weaned off of the Prednisone, and her symptoms returned. She spoke to her utilities estimator and drafter, Dr Lira at [facility], about ? of MG work-up- and was advised to f/u with neuro. She describes the BLE as in the morning, her legs are heavy, has to jyoti effort to chart picker the legs, the steps are not always coordinated, and the legs are slow to respond or do not step as far as she would like. She does take a mile walk most mornings, some days she can do this with SOB but never gets stronger or better at this walk. On other days, she can barely make it up the hill, the legs feel weak, sick- like having the flu. After returning from the walk, she may need to sit for an hour, and then the legs are still sore, heavy, uncoordinated. To get up from the ground, she has to jyoti her upper body to pull herself up. She does try to practice getting up from her knees a few times a day. She tends to avoid doing activities over her head. When she brings in groceries, she does several trips of smaller bags. In the last 6 months, she has fallen going up the stairs about 6 times, and down the stairs about 2 times. She had a recent fall while walking on a dusting of snow w/ her dog. PCP has advised her to use a cane- not yet doing this. Can write-not as smooth as before, has to hold her pen slightly differently- a ttributes to RA dx. Some difficulty w/ buttons/tying laces. Does ok w/ zippers. Dry eye. Denies usual diplopia. May look tired, but denies eye droop. Mild hyposmia and tast sensation since she had chemo. Has to be conscious when swallowing- has to take fluids w/ raw stock drier tender foods- attributes to Sjogren's. She can feel not right in space dizziness when sitting in a chair, and has orthostatic lightheadedness and room spinning dizziness. No longer taking midodrine for dysautonomia- as it was causing HTN. Takes fluids ok- mostly water, coffee, occasionally milk. Likes salt- salts her meals. Denies tremor or shakiness. BLE muscle cramps (feet/lower legs, but the other day up to her thighs) at rest during the day and night- can be intense. BLE shins through toes, and BUE elbows to fingers, and face- lips- numbness and tingling. In the last year, she had 2 separate week long episodes of urinary incontinence- which self-resolved. She has recent dx of gastroparesis, constipation, but may also have periods of diarrhea. She does talk in her sleep, in the past she has tried to get out bed as she was dreaming that she needed to get up. Previous work-up: Recent CBC, CMP, B-12, Folate, MMA, ESR, RF < 14, AVERY positive, 1:40, fine speckled pattern. Homocysteine- 12.3 H Tilt-table at [facility],?11/28/2022: Head-up tilt table test is positive for neurocardiogenic syncope. Primarily vaso-depressive response. 0 Minutes (Supine): 129/79 HR 70 No symptoms 2 Minutes (Standing @ 70 degree Tilt): 152/89 HR 85 No symptoms 4 Minutes (Standing): ?142/86 HR 81 No symptoms 6 minutes (Standing): 148/85 HR 89 No symptoms 8 Minutes (Standing): ?135/87 HR 99 No symptoms 10 Minutes (Standing): 116/90 HR 104 No symptoms 12 minutes (Standing): 137/93 HR 112 No symptoms 14 minutes (Standing): 117/94 HR 108 No symptoms 16 Minutes (Standing): 143/108 HR 103 No symptoms 18 Minutes (Standing): 112/77 HR 106 No symptoms 20 Minutes (Standing) ?97/ 69 HR 107 No symptoms 22 Minutes (Standing): 95/ 75 HR 113 Feeling clammy, nausea, cold and sweaty 24 Minutes (Standing): 97/70 HR 109 Feeling better 26 Minutes (Standing): 83/67 ?HR 113 Feeling sweaty? 28 Minutes (Standing): 93/71 HR 107 Still feeling sweaty, weak 30 Minutes (Standing): 68/45 HR 82 Nausea, feeling going to throw up,(Syncopal episode), patient lowered to supine position, patient regained consciousness? 32 Minutes (Supine): 114/68 HR 63 symptoms resolving? 24 hr EEG at [facility], Oct 2022 : Normal L-spine MRI 07/2022 at [facility]- small L4-5 disc protrusion w/ L3-4 and L5-S1 disc bulging. Bilateral recess stenosis at L3-4 and L4-5 w/o significant central canal stenosis. right L4-5 neural foraminal impingement. C-spine MRI w/o (07/2022 at [facility]): No evidence of demyelinating process. degenerative disc disease and disc spur at C4-5 w/o central canal stenosis, multilevel neural foraminal stenosis. 2019 at [facility]:BLE EMG was normal. Brain MRI w/wo- showed mild scattered white matter changes, not consistent with a demyelinating process. Baseline EEG revealed left temporal region presence of a few blunted sharp forms and sharply contoured slowing. Pt was asymptomatic during the study. [facility] Medical History Traumatic brain injury Asthma Postconcussion syndrome Breast cancer Surgical History History of surgery of uterus Hx of cholecystectomy Hx of bilateral mastectomy Hx of tubal ligation Family History Father Liver problem Alcoholism Mother Stroke Family/Other Lupus Epilepsy Family/Other No problems noted. Social History Household Members: Spouse Household Members Other:: mercedes, [facility] Alcohol intake: former Patient Tobacco Use Status: Never used Tobacco Physical Exam Const General: cooperative and no acute distress Resp Effort & Inspection: normal respiratory effort and able to speak in complete sentences Neuro Other: General: A&O x's 3 Expression: Improved facial expression Voice: Intact Psych: Pleasant affect General: deep tendon reflexes 2+ bilaterally Psych Mental Status: mental status grossly normal Affect: normal affect Attitude: cooperative Thought process: Normal thought process present Telehealth Telehealth Telehealth Platform: [employer] Location of provider rendering services: practice address Location of patient: address on file Patient Identification confirmed using: Name, : Yes Telehealth method: video Patient verbally consented to treatment: Yes Patient verbally consented to billing insurance company: Yes Patient informed of any privacy concerns related to visit: Yes Minutes spent on Phone/Video with Pt.: 8 Assessment & Plan Assessment & Plan (1) Gait difficulty: Code(s): R26.9 - Unspecified abnormalities of gait and mobility Category: Medical (2) Parasomnia: Code(s): G47.50 - Parasomnia, unspecified Category: Medical Qualifiers: Parasomnia type: REM sleep behavior disorder Qualified Code(s): G47.52 - REM sleep behavior disorder (3) Hypersomnia: Code(s): G47.10 - Hypersomnia, unspecified Category: Medical (4) Snoring: Code(s): R06.83 - Snoring Category: Medical (5) Weakness: Code(s): R53.1 - Weakness Category: Medical (6) Cognitive dysfunction: Comment: chronic post-concussive. Code(s): F09 - Unspecified mental disorder due to known physiological condition Category: Medical (7) Dysphagia: Code(s): R13.10 - Dysphagia, unspecified Category: Medical Qualifiers: Dysphagia type: unspecified Qualified Code(s): R13.10 - Dysphagia, unspecified (8) Movement disorder: Code(s): G25.9 - Extrapyramidal and movement disorder, unspecified Category: Medical (9) Diplopia: Comment: Isolated episode of horizontal binocular diplopia in distance vision Code(s): H53.2 - Diplopia Category: Medical Plan No worrisome focal neurological symptoms appreciated. Patient reassured, isolated episode of binocular diplopia likely triggered by mild dehydration and eye strain due to gardening and reading in the hot weather. Patient encouraged to maintain adequate hydration, especially if outside in warmer weather or physically active in warmer weather. Patient advised to notify us if symptoms recur. In the meantime, continue the plan as below: Increase carbidopa levodopa 25-100 mg from 1 tab b.i.d. at 7am and 1pm to 1 tab 3 x's per day. * Patient advised she does not need to avoid eating protein during the day, rather ideally she can take carbidopa levodopa 30 minutes before or 2 hours after eating protein/a full meal. Monitor for increase in orthostatic lightheadedness/dizziness. Monitor for possible hallucinations and parasomnias. Continue increase physical activity, including daily walks. * Patient may benefit from trying PD/movement disorder classes at the [facility]. Continue painting, advised she may want to plan to do detailed painting in the morning. Continue speech therapy treatment for dysphagia and chewing difficulties- at [facility], as this is closer to patient's home. Future considerations: PT at [facility]. Previously in-lab sleep study results which showed moderate sleep apnea, however patient has declined trial of CPAP due to claustrophobia. * Continue to sleep on left side, or with head elevated. May use an OTC device to support side sleeping. * Future considerations: Mandibular device, ENT consult. Repeat sleep study, with head of bed elevated to 20 degrees (which is patient's typical sleeping position). Pt to follow-up in 4-6 months or sooner prn. Coding Level of Care Code Tele Est Pt Level 3 (10570) Diagnoses Gait difficulty R26.9 REM sleep behavior disorder G47.52 Parasomnia type: REM sleep behavior disorder Hypersomnia G47.10 Snoring R06.83 Weakness R53.1 Cognitive dysfunction F09 Dysphagia, unspecified type R13.10 Dysphagia type: unspecified Movement disorder G25.9 Diplopia H53.2
--- OUTSIDE RECORDS SUMMARY | 2025-05-15 12:57 | XMS_ITS | Clinical Summary ---
Author Organization [facility] Address [address] [place] [id number] Care Team Providers Care Change Consultant Name Role Phone Unavailable Primary Care Provider [...] 79 07/10/2024 2:02 PM EDT Temperature 36.2 C (97.2 F) 07/10/2024 2:02 PM EDT Respiratory Rate - - Oxygen Saturation - [...] Tdap) 11/27/2017 11/27/2007, 10/15/1997 COVID-19 Vaccine ( season) 2024 01/05/2022, 08/08/2021, 12/18/2020 Influenza Vaccine (#1) 2025 , 07/06/2022, 08/08/2021, Additional history exists Pneumococcal Vaccine Completed 09/22/2021, 09/10/2017, 10/13/2013 RSV Adult > 60+ Yrs or Completed 11/04/2023 Hepatitis B Vaccines Aged Out No long er eligible based on patient's age to complete this topic RSV Ped < 20 months Aged Out No longe r eligible based on patient's age to complete this topic
--- OUTSIDE RECORDS SUMMARY | 2025-05-15 12:57 | XMS_ITS | Encounter Summary ---
Author Organization [facility] Address [address] [facility] [address] [place] [phone] Phone Care Team Providers Care Printing Screen Assembler Name Role Phone Tomeka Sanon MD Primary Care Prov ider Schuyler Kamara MD Unavailable [phone] Encounter Details Date Type Department Care Team (Late st Contact Info) Description 06/03/2020 Procedure Pass OR Admitting Dept - Virtual Department [address] [place] [id number] Social History Tobacco Use Types Packs/Day Years Used Date Smoking Tobacco: Never Smokeless Tobacco: Never Alcohol Use Standard Drinks/Week Comments Never 0 (1 standard drink = 0.6 oz pur e alcohol) Comments No Sex and Gender Information Value Date Recorded Sex Assigned at Female 11/01/2019 7:22 PM EST Legal Sex Female 7:32 PM EST Gender Identity Female 11/01/2019 7:22 PM EST Sexual Orientation Straight 11/01/2019 7: 22 PM EST 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 Industry Job Start Date Job End Date 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 Not on file Not on file Not on f ile documented as of this encounter Plan of Treatment Upcoming Encounters Date Type Department Care Team (Late st Contact Info) Description 06/02/2025 7:40 AM EDT Office Visit [facility] [address] [place] [address] 3rd Floor, [address] [place] [phone] Ming Allison MD [address] [facility], [address] [place] [phone] 06/16/2025 11:00 AM EDT Appointment [facility], X-Ray - [facility] [address] [place] [address] Autumn Vásquez, CORA [address] [address] 07/14/2025 2:00 PM EDT Office Visit [facility] [address] [place] [address] Autumn Vásquez, INTELLECTUAL PROPERTY PARALEGAL [address] [address] Merle Sales CCC-[employer]AR[employer]DER [address] [place] [address] 07/21/2025 8:30 AM EDT Office Visit [facility] [address] [place] [address] Autumn Vásquez, INTELLECTUAL PROPERTY PARALEGAL [address] [address] Merle Sales CCC-WHARF BUILDER [address] [place] [address] 07/28/2025 8:30 AM EDT Office Visit [facility] [address] [place] [address] Autumn Vásquez, CORA [address] [address] Merle Sales CCC-WHARF BUILDER [address] [place] [phone] 08/04/2025 8:30 AM EDT Office Visit [facility] [address] [place] [address] Autumn Vásquez, CORA [address] [address] Merle Sales CCC-WHARF BUILDER [address] [place] [address] 08/11/2025 8:30 AM EDT Office Visit [address] [place] [address] Autumn Vásquez, INTELLECTUAL PROPERTY PARALEGAL [address] [address] Merle Sales [facility]-WHARF BUILDER [address] [place] [address] 08/18/2025 8:30 AM EST Office Visit [address] [place] [address] Autumn Vásquez, INTELLECTUAL PROPERTY PARALEGAL [address] [address] Merle Sales [facility]-WHARF BUILDER [address] [place] [address] 08/25/2025 8:30 AM EST Office Visit [address] [place] [address] Autumn Vásquez, INTELLECTUAL PROPERTY PARALEGAL [address] [address] Merle Sales [facility]-WHARF BUILDER [address] [place] [phone] 09/01/2025 8:30 AM EST Office Visit [address] [place] [address] Autumn Vásquez, INTELLECTUAL PROPERTY PARALEGAL [address] [address] Merle Sales CCC-WHARF BUILDER [address] [place] [address] 09/08/2025 8:30 AM EST Office Visit [address] [address] Autumn Vásquez, INTELLECTUAL PROPERTY PARALEGAL [address] [address] Merle Sales [facility]-WHARF BUILDER [address] [place] [phone] 09/15/2025 8:30 AM EST Office Visit [address] [address] Autumn Vásquez, CORA [address] [address] Merle Sales [facility]-WHARF BUILDER [address] [place] [phone] documented as of this encounter Visit Diagnoses Not on filedocumented in this encounter Additional Health Concerns Infection Onset Date Last Indicated Resolved Time CoV-Risk 10/04/2024 10/04/2024 10/15/2024 1:24 AM EST documented as of this encounter Care Teams Printing Screen Assembler Relationship Specialty Start Date End Date Tomeka Sanon MD [address] [place] [phone] [email or web address] PCP - General Family Medicine 10/03/19 Schuyler Kamara MD [address] [place] [address] Primary Oncologist Medical Oncology 08/16/20 documented as of this encounter Additional Source Comments The information contained in this document represents components of the legal health record. It is not the complete legal health record.[facility]
--- OUTSIDE RECORDS SUMMARY | 2025-05-15 12:57 | XMS_ITS | Clinical Summary ---
Author Organization [facility] Address [address] [place] [address] Care Team Providers Care Flea Market Seller Name Role Phone Unavailable Primary Care Provider [...] Colorectal Cancer Screening: Sigmoidoscopy 2001 Pneumococcal Vaccine: 50+ Ye ars (1 of 1 - PCV) 2002 Influenza Vaccine (#1) 2025 Hepatitis B Vaccine Aged Out No longe r eligible based on patient's age to complete this topic Insurance Medicare [facility]
--- OUTSIDE RECORDS SUMMARY | 2025-05-15 12:57 | XMS_ITS | Clinical Summary ---
Author Organization [address] [facility] Address [address] [place] [address] Phone Care Team Providers Care Agent Name Role Phone Unavailable Primary Care Provider [...] Active Immunizations Name Administration Dates Next Due [facility]/Post-i SARS-CoV-2 COVID -19, vector-nr, rS-Ad26, preservative free [...] 71 09/10/2024 4:03 PM EST Temperature 36.1 C (96.9 F) 09/10/2024 4:03 PM EST Respiratory Rate - - Oxygen Saturation 97% [...] 2) 1971 Colorectal Cancer Screening: Colonoscopy 07/24/2024 Falls Risk Assessment 07/24/2024 Hepatitis C Screening 07/24/2024 Medicare Annual Wellness Visit 07/24/2024 Social Influencers of Health Screening 07/24/2024 Depression Screening 10/15/2024 COVID-19 Vaccine ( season) 2025 08/12/2024, 11/04/2023, 07/31/2022, Additional history exists Influenza Vaccine (#1) 2025 , 07/05/2023, 07/06/2022, Additional history exists Osteoporosis Screening (Bone Density Screening) 10/17/2027 10/17/2017 Cholesterol Screening (Lipid Panel) 01/16/2028 01/15/2023 DTaP,Tdap,and Td Vaccines (4 - Td or Tdap) 03/26/2029 03/26/2019, 11/27/2007, 10/15/1997 Pneumococcal Vaccine: 50+ Years Completed 09/22/2021, 09/10/2017, 10/13/2013 RSV Immunization Adult Patients Completed 11/04/2023 HIB Vaccines Aged Out No longer eligi [...] age to complete this topic Meningococcal B Vaccine Aged Out No l onger eligible based on patient's age to complete this topic RSV Immunization Patients Under 20 months Aged Out No longer eligible based on patient's age to complete this topic Varicella Vaccines Aged Out No longer eligible based on patient's age to complete this topic Insurance [facility] MEDICARE
--- OUTSIDE RECORDS SUMMARY | 2025-05-15 12:57 | XMS_ITS ---
Author Name [facility] Organization Unknown History of Medication Use Medication Directions Dispensed Refills Start Date End Date Stat rosuvastatin (CRESTOR) tablet 5 mg Take 1 tablet (5 mg total) by mouth daily. 06/02/2024 active hydroxychloroquine (PLAQUENIL) 200 MG tablet Take 1 tablet (200 mg total) by mouth daily. 05/22/2024 active levothyroxine (SYNTHROID) tablet 112 mcg Take 1 tablet (112 mcg total) by mouth daily. 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
== END 2025-05-15 14:04 | disposition home or self-care (01) ==
PROVIDERS: PCP Family Medicine; Visit Provider Nurse Practitioner Family
DX: R26.9 Unspecified abnormalities of gait and mobility (principal); G47.52 REM sleep behavior disorder; G47.10 Hypersomnia, unspecified; R06.83 Snoring; R53.1 Weakness; R41.89 Other symptoms and signs involving cognitive functions and awareness; R13.10 Dysphagia, unspecified; G25.9 Extrapyramidal and movement disorder, unspecified; H53.2 Diplopia
CPT/HCPCS: 99213

== ENCOUNTER 2025-10-12 08:51 | Outpatient (AMB) | payer MEDICARE, OTHER, SELFPAY ==
[2025-10-12 08:57] VITALS: BP 120/82; PULSE 71; O2SAT 98; BMI 29.0
--- NOTE | 2025-10-12 08:57 | A.OFFVIS_ITS ---
Vital Signs 10/12/25 08:57 Height 5 ft 4 in Weight 169 lb BMI 29.0 BP 120/82 Blood Pressure Location Lt brachial Pulse 71 Pulse Source Pulse Oximeter Pulse Oximetry (%) 98 Oxygen Delivery Method Room Air Intake Visit Reasons: 6m follow up Intake Note: Patient presents for follow up. 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 Pt reports she is doing overall better. Interval changes: her synthroid dose was increased Pt's current movement Disorder medication regimen: Carbidopa/Levodopa twice a day at 7 AM and 1 PM and 7 pm. Do medication effects last between doses: May wear off Wakes up at 6am, and takes her levothyroxine at 6am. Typically wakes up at least once a night, around 3 am. Activities of daily living (ADL's): Independent Instrumental activities of daily living (IADL's): Independent Vision: dry eyes at times, blurry vision at times, occassional diplopia but not as pronounced as before. 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 Constipation: Improved since starting CD-LD Urinary symptoms: Not usually, had some issues which she thought was d/t a low grade UTI Tremor: In hands when doing close work, but only about an hour before her CD-LD dose Dyskinesia: None Stiffness: In the am or before the second dose Musculoskeletal symptoms: Leg cramps have significantly improved since starting CD-LD Gait difficulties or changes: Gait improved Freezing episodes of gait: Denies Falls: Denies fals, but endorses less tripping and episodes of being off-balance- mostly in the am. Mood difficulties or changes: Denies, mood improved with medication Hallucinations: Denies Memory difficulties or changes: Present, stable related to traumatic brain injury Sleep difficulties: only if having a very vivid dreams will have an episode of sleepwalking- which precedes starting carbidopa levodopa, may be triggered by stress and exposures prior to sleep Exercise routine: Not much since her pool closed. Does walk on a low treadmill once a day. She forgot about the Parkinson's movement-specific classes Socialization and cognitive activities: Engages in drawing and cognitive activities 05/15/2025, HPI: Patient is sent portal message, reporting new episode of binocular horizontal diplopia-she did do a cover uncover test of her eyes, in the diplopia was only present with both eyes. She had one episode of looking down upon her who was walking in their yard- she saw 2 distinct images of her walking towards her, once he got closer to her. She notes that prior to this, she had been bending over doing gardening and weaning, and it was hot row, so she was probably a bit dehydrated. She reports she has a remote history of psotconcussive diplopi- overlapping blurry images, but had never had this crystal clear horizontal diplopia before. 04/06/2025, previous HPI: Patient continues to see improvement since starting carbidopa levodopa, though wonders if she would have further benefit from taking it more frequently. She notes her also sees benefit from starting the carbidopa levodopa. She is curious about how to manage taking the carbidopa levodopa while taking metformin-as she was told she needed to increase her protein intake due to starting metformin. Patient did recently undergo swallow study which showed a mild dysphagia, and is currently undergoing speech therapy. Pt's current movement Disorder medication regimen: Carbidopa/Levodopa twice a day at 6:00 AM and 1:00 PM Do medication effects last between doses: May wear off Activities of daily living (ADL's): Independent Instrumental activities of daily living (IADL's): Independent Swallowing difficulty: Present, undergoing speech therapy Cough: Denies Drooling: Present Orthostatic lightheadedness: Present due to dysautonomia- manages with standing slowly and taking plenty of fluids. Constipation: Present, managed with herbal remedy Urinary symptoms: Denies Tremor: None Dyskinesia: None Stiffness: Present in the morning before medication Musculoskeletal symptoms: Denies Gait difficulties or changes: Present, improved with medication Freezing episodes of gait: Denies Falls: Denies Mood difficulties or changes: Denies, mood improved with medication Hallucinations: Present, occasional vivid dreams and auditory hallucinations Memory difficulties or changes: Present, related to traumatic brain injury Sleep difficulties: vivid dreams that sometimes lead to sleepwalking- which precedes starting carbidopa levodopa Exercise routine: None, considering physical therapy and Parkinson's movement- specific classes Socialization and cognitive activities: Engages in drawing and cognitive activities 12/26/2024 HPI: 11/21/2024, JONATHON scan- no evidence of a dopaminergic deficit. 11/12/2024 In-lab PSG showed AHI 21/hour and REM AHI 51/hour, average SpO2 94% with O2 kwame 84% and SpO2 under 88% for 1.2 minute of study time. Snoring was moderate. Average heart rate 66 beats per minute with highest pulse rate during sleep 81 beats per minute. Periodic limb movement of sleep 13/hour and PLMS arousal index 2.6 per hour. Since last visit, we reviewed the DaTSCAN results with the patient, which was negative for a clear dopaminergic deficit. Patient agreed to trial on carbidopa levodopa to see if this would help, overall, she has felt that the initial trial of low-dose carbidopa levodopa has been beneficial. Pt reports she has notices some changes since starting CD-LD 25-100mg 1 tab at 7am and 1pm. She is tolerating the CD-LD well. Since starting, she has avoided protein during the day to optimize effect, but is taking 100gm protein at dinner/evening. The first change she noticed was decreased left thigh stiffness and improved ability to walk- her noticed even more, as she is able to walk much better in the evening. Her speech feels more fluid, less delayed. She is now noticing that her swallowing issue is more d/t incoordinated chewing- at times biting her inner cheek- and having some drooling while chewing. and then is swallowing before chewing well. She has noticed improved ability overall to do her day to day activities. She did not notice much reduction in tremor- was noticing this particularly with realism. 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 She is now notiicng her arms are not as heavy and feel a bit looser. After dinner, she notices a mild hand tremor while painting. She does continue to become dizzy- it is less frequent and not as severe- not worse since starting CD-LD. She did stop midodrine prior to starting CD-LD. In regards to her sleep and daytime tiredness, her sleep study did show moderate sleep apnea, however she notes that at home she typically sleeps with her head elevated at about 20 degrees, and her mattressed we will raise the head of her bed when she is snoring. However, during the sleep study, she slept a flat position. She typically prefers to sleep in her left side position. She does not think she would be able to tolerate using a CPAP machine, as she is quite claustrophobic. Upon further review of the sleep study, it is noted that all sleep apnea and associated hypoxemia occurred while in the supine position, and none in the left or right sleeping position. 09/29/2024 HPI: Pt reports she has completed work-up with Dr. Sibley. Per pt, she was advised that she could not confirm that patient has a a demyelinating or central autoimmune disorder. She reports that she is now more concerned with progressing lower extremity weakness and breathlessness upon exertion. She recently saw her quality systems manager, who per pt, 2 weeks ago, tried her on Prednisone burst 40mg po daily to see if her s/s were responsive to immunosu ppression. Pt reports that her s/s were markedly improved as she completed the course of Prednisone- she stated the pain in her legs resolved, she was able to walk 2 miles w/o significant SOB. She was then weaned off of the Prednisone, and her symptoms returned. She spoke to her planning specialist, Dr Lira at [facility] [place], about ? of MG work-up- and was advised to f/u with neuro. She describes the BLE as in the morning, her legs are heavy, has to jyoti effort to [employer] the legs, the steps are not always coordinated, and the legs are slow to respond or do not step as far as she would like. She does take a mile walk most mornings, some days she can do this with SOB but never gets stronger or better at this walk. On other days, she can barely make it up the hill, the legs feel weak, sick- like having the flu. After returning from the walk, she may need to sit for an hour, and then the legs are still sore, heavy, uncoordinated. To get up from the ground, she has to jyoti her upper body to pull herself up. She does try to practice getting up from her knees a few times a day. She tends to avoid doing activities over her head. When she brings in groceries, she does several trips of smaller bags. In the last 6 months, she has fallen going up the stairs about 6 times, and down the stairs about 2 times. She had a recent fall while walking on a dusting of snow w/ her dog. PCP has advised her to use a cane- not yet doing this. Can write-not as smooth as before, has to hold her pen slightly differently- attributes to RA dx. Some difficulty w/ buttons/tying laces. Does ok w/ zippers. Dry eye. Denies usual diplopia. May look tired, but denies eye droop. Mild hyposmia and tast sensation since she had chemo. Has to be conscious when swallowing- has to take fluids w/ port drier foods- attribut es to Sjogren's. She can feel not right in space dizziness when sitting in a chair, and has orthostatic lightheadedness and room spinning dizziness. No longer taking midodrine for dysautonomia- as it was causing HTN. Takes fluids ok- mostly water, coffee, occasionally milk. Likes salt- salts her meals. Denies tremor or shakiness. BLE muscle cramps (feet/lower legs, but the other day up to her thighs) at rest during the day and night- can be intense. BLE shins through toes, and BUE elbows to fingers, and face- lips- numbness and tingling. In the last year, she had 2 separate week long episodes of urinary incontinence- which self-resolved. She has recent dx of gastroparesis, constipation, but may also have periods of diarrhea. She does talk in her sleep, in the past she has tried to get out bed as she was dreaming that she needed to get up. Previous work-up: Recent CBC, CMP, B-12, Folate, MMA, ESR, RF < 14, AVERY positive, 1:40, fine speckled pattern. Homocysteine- 12.3 H Tilt-table at [facility],?11/28/2022: Head-up tilt table test is positive for neurocardiogenic syncope. Primarily vaso-depressive response. 0 Minutes (Supine): 129/79 HR 70 No symptoms 2 Minutes (Standing @ 70 degree Tilt): 152/89 HR 85 No symptoms 4 Minutes (Standing): ?142/86 HR 81 No symptoms 6 minutes (Standing): 148/85 HR 89 No symptoms 8 Minutes (Standing): ?135/87 HR 99 No symptoms 10 Minutes (Standing): 116/90 HR 104 No symptoms 12 minutes (Standing): 137/93 HR 112 No symptoms 14 minutes (Standing): 117/94 HR 108 No symptoms 16 Minutes (Standing): 143/108 HR 103 No symptoms 18 Minutes (Standing): 112/77 HR 106 No symptoms 20 Minutes (Standing) ?97/ 69 HR 107 No symptoms 22 Minutes (Standing): 95/ 75 HR 113 Feeling clammy, nausea, cold and sweaty 24 Minutes (Standing): 97/70 HR 109 Feeling better 26 Minutes (Standing): 83/67 ?HR 113 Feeling sweaty? 28 Minutes (Standing): 93/71 HR 107 Still feeling sweaty, weak 30 Minutes (Standing): 68/45 HR 82 Nausea, feeling going to throw up,(Syncopal episode), patient lowered to supine position, patient regained consciousness? 32 Minutes (Supine): 114/68 HR 63 symptoms resolving? 24 hr EEG at [facility] [place], Oct 2022 : Normal L-spine MRI 07/2022 at [facility] [place]- small L4-5 disc protrusion w/ L3-4 and L5-S1 disc bulging. Bilateral recess stenosis at L3-4 and L4-5 w/o significant central canal stenosis. right L4-5 neural foraminal impingement. C-spine MRI w/o (07/2022 at [facility] [place]): No evidence of demyelinating process. degenerative disc disease and disc spur at C4-5 w/o central canal stenosis, multilevel neural foraminal stenosis. 2019 at [facility] [place]:BLE EMG was normal. Brain MRI w/wo- showed mild scattered white matter changes, not consistent with a demyelinating process. Baseline EEG revealed left temporal region presence of a few blunted sharp forms and sharply contoured slowing. Pt was asymptomatic during the study. [facility] Medical History Traumatic brain injury Asthma Postconcussion syndrome Breast cancer Surgical History History of surgery of uterus Hx of cholecystectomy Hx of bilateral mastectomy Hx of tubal ligation Family History Father Liver problem Alcoholism Mother Stroke Family/Other Lupus Epilepsy Family/Other No problems noted. Social History Household Members: Spouse Household Members Other:: huband, older grandaughter Alcohol intake: former Patient Tobacco Use Status: Never used Tobacco Physical Exam Vital Signs: Last Vital Signs Pulse 71 10/12/25 08:57 BP 120/82 10/12/25 08:57 Pulse Ox 98 10/12/25 08:57 Oxygen Delivery Method Room Air 10/12/25 08:57 BMI result Body Mass Index 29.0 Const General: cooperative and no acute distress Resp Effort & Inspection: normal respiratory effort and able to speak in complete sentences Neuro Other: General: A&O x's 3 Expression: Improved facial expression- well animated today Voice: Intact Tremor: Mild decreased lingual tremor on protrusion. No rest or postural UE or LE tremor today. Tone: Mild BUE left greater than right elbow tone Dyskinesia: None FFM: Mild right bradykinesia Foot taps: Mild right bradykinesia Gait: Stands much easier today, improved stride length and floor clearance, steady during turn. Psych: Pleasant affect Psych Mental Status: mental status grossly normal Affect: normal affect Attitude: cooperative Thought process: Normal thought process present Telehealth Telehealth Telehealth Platform: [employer] Location of provider rendering services: practice address Location of patient: address on file Patient Identification confirmed using: Name, : Yes Telehealth method: video Patient verbally consented to treatment: Yes Patient verbally consented to billing insurance company: Yes Patient informed of any privacy concerns related to visit: Yes Minutes spent on Phone/Video with Pt.: 8 Assessment & Plan Assessment & Plan (1) Movement disorder: Code(s): G25.9 - Extrapyramidal and movement disorder, unspecified Category: Medical (2) Gait difficulty: Code(s): R26.9 - Unspecified abnormalities of gait and mobility Category: Medical (3) Parasomnia: Code(s): G47.50 - Parasomnia, unspecified Category: Medical Qualifiers: Parasomnia type: REM sleep behavior disorder Qualified Code(s): G47.52 - REM sleep behavior disorder (4) Snoring: Code(s): R06.83 - Snoring Category: Medical (5) Cognitive dysfunction: Comment: chronic post-concussive. Code(s): F09 - Unspecified mental disorder due to known physiological condition Category: Medical (6) Dysphagia: Code(s): R13.10 - Dysphagia, unspecified Category: Medical Qualifiers: Dysphagia type: unspecified Qualified Code(s): R13.10 - Dysphagia, unspecified (7) Diplopia: Comment: Isolated episode of horizontal binocular diplopia in distance vision Code(s): H53.2 - Diplopia Category: Medical Plan Discontinue carbidopa levodopa 25-100 mg 1 tab 3 x's per day at 7 am, 1pm, and 7 pm order- as she is having wearing off prior to 7am and 1 pm doses. Start carbidopa levodopa IR 25-100 mg 1 tab 4 times per day at 3 am, 7 am, 1pm, and 7 pm * If she sleeps through the 3 am dose, may adjust that days regimen to either: * 1.5 tabs at 7 am, 1.5 tabs at 1 pm, and 1 tab at 7 pm * Or 2 tabs at 7am, and 1 tab at 1 pm and 7 pm For orthostatic lightheadedness/dizziness: * Improved * Continue standing slowly * Continue increased fluid intake- goal at least 64-80 fluid oz per day, including 1-2 servings of electrolyte replacement beverage For vivid dreams and parasomnias: * Obtain and apply a door alarm to bedroom door, to alert her and her if she is sleepwalking and has left her bedroom. * Keep area around bed free of clutter * Engage in a relaxation bedtime ritual to reduce risk for stress-induced vivid dreams * Future considerations: Clonazepam and/or melatonin trial For dysphagia: * Concur with resuming speech therapy treatment for dysphagia and chewing difficulties in the spring (when transportation is easier) * at [facility] [place], as this is closer to patient's home. For episodes of blurry vision and diplopia: * Increase OTC hydrating teardrop (preservative-free formulation) use to at least 4 times per day * Follow-up with eye care provider as scheduled For overall movement disorder management: * Increase physical activity, including daily walks. * Patient may benefit from having pool access or trying PD/movement disorder classes, through her local [facility]. * Continue painting and are to stick and beverage Future considerations: PT at [facility] [place]. Trial of CD-LD ER QHS or for 3am dose Previously in-lab sleep study results which showed moderate sleep apnea, however patient has declined trial of CPAP due to claustrophobia. * Continue to sleep on left side, or with head elevated. May use an OTC device to support side sleeping. * Future considerations: Mandibular device, ENT consult. Repeat sleep study, with head of bed elevated to 20 degrees (which is patient's typical sleeping position). Pt to follow-up in 6 months or sooner prn. Medications: Changed From carbidopa-levodopa 25-100 mg take w/ a cracker 30 minutes before protein 1 tab PO TID 90 days 270 tabs 1RF To carbidopa-levodopa 25-100 mg 1 tab PO QID 360 tabs 4RF 90 days Coding Level of Care Code Est Pt Level 4 (64229) Diagnoses Movement disorder G25.9 Gait difficulty R26.9 REM sleep behavior disorder G47.52 Parasomnia type: REM sleep behavior disorder Snoring R06.83 Cognitive dysfunction F09 Dysphagia, unspecified type R13.10 Dysphagia type: unspecified Diplopia H53.2
--- OUTSIDE RECORDS SUMMARY | 2025-10-12 09:00 | XMS_ITS | Clinical Summary ---
Author Organization [facility] Address [facility] [address] [place] [id number] Phone Care Team Providers Care Varnishing Machine Operator Name Role Phone Tomeka Sanon MD Primary Care Prov ider Schuyler Kamara MD Unavailable [phone] Allergies Active Allergy Reactions Criticality Noted Date Comments Other High 02/05/2020 Lilacs Pollen Extracts 09/10/2024 Sulfa (Sulfonamide Antibiotics) Itching Medium 09/25/2011 Itching, lip swelling Medications albuterol 90 mcg/actuation inhaler Inhale 2 puffs into the lungs every 6 (six) hours as needed for wheezing. Active levothyroxine (SYNTHROID, LEVOTHROID) 112 MCG tablet Take 112 mcg by mouth every morning. Active loratadine (CLARITIN) 10 mg tablet Take 10 mg by mouth daily as needed. Spring only Active carbidopa-levodo pa (SINEMET) 25-100 mg per tablet Take 1 tablet by mouth 2 (two) times a day. 02/25/2025 Active pilocarpine (SALAGEN) 5 MG tabletIndication s:Sicca syndrome Take 1 tablet (5 mg total) by mouth 3 (three) times a day with meals. As needed for dry mouth 90 tablet 1 03/03/2025 Active aspirin 81 MG EC tablet TAKE 1 TABLET BY MOUTH EVERY DAY 90 tablet 3 05/20/2025 Active metFORMIN (GLUCOPHAGE) 500 MG tablet Take 500 mg by mouth 2 (two) times a day with meals. 06/18/2025 Active Active Problems Patient Care Coordination No te Formatting of this note migh t be different from the original. Height 163.1cm shoes on at pt request 01/15/23 Problem Noted Date Diagnosed Date Syncope and collapse 06/22/2025 Assessment & Plan (06/22/2025 4:46 PM EDT): Patient denies any recurrence. States she is managing dehydration better, we did discuss compression, slow position change, etc. Continue to follow. Could consider medication change or ILR/repeat testing should syncope recur. 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 There is no current indication to trend complement or for other further rheumatology specific investigations. Assessment & Plan (05/22/2024 12:32 PM EDT): Clinical picture favors Sjogren's > SLE Encounter for methotrexate monitoring 03/18/2024 Overview (09/22/2024): Oral methotrexate resulted in intolerable fatigue and diarrhea temporally correlated with dosing Assessment & Plan (09/22/2024 3:55 PM EST): Repeat labs 4-5 wks after resuming methotrexate Assessment & Plan (05/22/2024 12:32 PM EDT): Diarrhea and fatigue associated with methotrexate though patient amenable to increased dose as above. Routine monitoring labs every 3 months. Assessment & Plan (03/18/2024 4:03 PM EDT): Common AEs of methotrexate reviewed with patient and written medication information provided. She is aware of need for labs after 4-5 doses and then periodically thereafter. She denies alcohol. Autonomic dysfunction 01/24/2024 Overview (01/24/2024): 2022 tilt table test positive for neurocardiogenic syncope Psoriatic arthritis 01/24/2024 Overview (03/03/2025): Psoriasis has been limited to scalp and right ear MRI left hand 02/2024 Psoriatic arthropathy at the third PIP joint with development of a pencil in cup deformity. Likely developing sciatic arthropathy at the fourth PIP joint. Dactylitis of the third and fourth fingers. Multifocal erosions of the distal ulnar styloid. Diffuse TFCC degeneration. Methotrexate 03/2024 to 08/2024; resumed SC dosing 09/2024 but self-dc'd 09/2024 due to continued AEs in context of Parkinson's dx Assessment & Plan (03/03/2025 12:54 PM EDT): Reasonable to remain off methotrexate at this time. She is feeling much better overall since she was diagnosed with and started treatment for Parkinson's disease. She will contact me if she has progressively severe joint symptoms, at which time we will reevaluate need for alternative DMARD. Assessment & Plan (09/22/2024 3:48 PM EST): Trial oral ------> SC methotrexate given significant AEs with oral dosing. Hopefully continued tx of psoriatic arthritis will improve [possibly associated / secondary] sicca sxs. Assessment & Plan (05/22/2024 12:31 PM EDT): >>ASSESSMENT AND PLAN FOR MULTIPLE JOINT PAIN WRITTEN ON 01/24/2024 12:48 PM BY RYLEY CUTLER MD, MPH Baseline hand and foot films given patient report of pencil in cup deformity on baseline foot x-rays as well as atraumatic fusion of left 3rd and right 2nd PIPs. It is possible that plantar fasciitis is a manifestation of psoriatic arthritis. Assessment & Plan (05/22/2024 12:29 PM EDT): Tolerating methotrexate with some symptomatic improvement of MCP pain though still with 1 hour AM stiffness. Amenable to trial increased dose from 17.5 to 20 mg weekly. No current skin disease. Assessment & Plan (03/18/2024 3:59 PM EDT): No active skin psoriasis; co-morbid OA of bl knees and left 1st CMC. Discussed methotrexate trial with patient and she is amenable to moving forward with this option. Will start at 12.5 mg weekly x3 wks then increase to 15 mg weekly x3 wks; further dose adjustment pending clinical response. Reiterated that psoriatic arthritis would not be expected to cause dyspnea, dayana-oral numbness, delayed gastric emptying, etc. She is aware that methotrexate may take up to several months to show full benefit and that it may be inadequate by itself. Mild intermittent asthma without complication Assessment & Plan (09/12/2024 9:00 AM EST): Continue as needed albuterol. If more significant symptoms during allergy season, can switch to combined albuterol/budesonide (Airsupra). Assessment & Plan (10/02/2022 9:08 AM EST): Notable improvement in component of exertional dyspnea with Symbicort. Currently remains asymptomatic from that element. Can use Symbicort pre-exercise as can with albuterol. If has more persistent symptoms, can resume on a daily basis for 2 to 4 weeks and then try stopping again and monitoring. Assessment & Plan (08/02/2022 10:08 AM EDT): History of allergic asthma and EIB. Trial of therapy as above. Dyspnea on exertion 08/02/2022 Assessment & Plan (06/22/2025 4:45 PM EDT): Unchanged/chronic. Has been worked up through cardiology and pulmonology. She states her breathing is stable yet with significant exertion, she continues to have some dyspnea, not with daily activities but with significance. We reviewed her previous cardiovascular testing and did offer to update her stress test as this has not been done since 2021, patient politely declines and will continue to monitor her symptoms. Will follow-up in 1 year. Assessment & Plan (09/12/2024 8:59 AM EST): Over 4 years of relatively consistent exertional dyspnea which she essentially localizes to weakness in her legs, which she describes as weight. Unclear whether this represents a manifestation of her inflammatory condition as evidenced by low complements. Alternatively, this may be more a component of longstanding chronic fatigue or dysautonomia as is common described with other patients with postinflammatory symptoms. Her PFTs were unremarkable, her asthma symptoms are clearly defined and I do not believe there is anything wrong with her lungs intrinsically as evidenced also by recent CT. No real reason to repeat PFTs at this time. RECOMMENDATION: Trial of albuterol 20 minutes prior to exertion. This is unlikely to make a difference but certainly there is no harm in trying Diagnostic trial of prednisone 40 mg/day (0.5 mg/kg) for 5 to 10 days. If notes resolution of her exertional dyspnea after 5 days, can stop. If not can continue for a full 10 days before discontinuing. Given her inflammatory arthritis history, she is somewhat at risk for a flare after abrupt discontinuation of prednisone, even short courses. If that were the case, she can refill the prednisone and taper over 1 to 2 weeks. If she has a positive response to the prednisone, can discuss further with Dr. Cutler regarding immunosuppression/immunomodulatory regimen as she is currently off all therapies. If she does not respond to prednisone, I feel it is unlikely that further therapies will make much of a difference. Supplements such as high-dose coenzyme Q10 can be tried but otherwise lifestyle modifications including weight loss were to be most effective. Assessment & Plan (10/02/2022 9:07 AM EST): Multifactorial shortness of breath, certainly component likely related to exertional dyspnea. Agree with rheumatology referral and ongoing work-up for dysautonomia. With treat asthma component as below. Assessment & Plan (08/02/2022 10:07 AM EDT): Approximately 2 years of dyspnea on exertion, consistent but nonspecific, unclear etiology. Differential at this point includes dysautonomia as suggested by cardiology, general deconditioning possibly related to cancer treatment, atypical asthma/exercise- induced bronchoconstriction, or other inflammatory condition such as polymyalgia rheumatica. Fortunately echocardiogram and stress test have been negative essentially ruling out severe cardiovascular disease. RECOMMENDATIONS: Obtain labs today including ESR, CRP, CPK and aldolase. If elevated, would consider empiric prednisone trial for possible PMR Trial of albuterol 15 minutes prior to exercise. START high-dose ICS/LABA after approximately 3 to 4 days of albuterol trial. If albuterol is effective, with ICS/LABA sufficient. If albuterol insufficient, within determine whether benefits from a steroid inhaler. Obtain full PFTs. Awaiting results of tilt test and further cardiovascular evaluation. Status post bilateral mastectomy 03/30/2021 Diarrhea 02/07/2020 Assessment & Plan (02/08/2020 10:52 AM EDT): Consult with Dr. Prieto from [facility] as above. Treatment for lymphocytic colitis as above. Antidiarrheals continued with home regimen. -Scheduled Imodium,continue 4 mg every 6 hours. -Continue Lomotil 4 times daily. -Tapering budesonide over 3 months, 9 mg daily for 1 month, then 6 mg daily for 1 month, then 3 mg daily for 1 month Abnormal EKG 02/06/2020 Assessment & Plan (02/08/2020 10:55 AM EDT): Ischemic changes noted on telemetry monitoring with tachycardia. Cardiology review requested. Recent comprehensive echo with myocardial strain imaging 10/22/2019: Interpretation Summary Left ventricular systolic function is normal. There are no segmental left ventricular wall motion abnormalities noted. The estimated ejection fraction is 70% (Normal 50-75%). GLS is calculated at -19.6%. Trace aortic regurgitation Ascending aorta is dilated and measures approximately 4.1 cm. Trace mitral regurgitation The estimated RV systolic pressure is 15 mmHg No prior studies for comparison. 02/06 she remains without current symptoms. No further ischemic evaluation recommended. Outpatient follow-up appropriate. Telemetry reviewed today shows sinus rhythm in the 70s, without further ectopy or ischemic changes. Electrolyte abnormality 02/05/2020 Assessment & Plan (02/08/2020 10:49 AM EDT): Patient has been experiencing hypokalemia and hypomagnesemia since her last round of chemotherapy which was finished on 01/21/2020. Suspected electrolyte abnormalities secondary to GI losses from diarrhea and poor magnesium absorption secondary to difficulty taking oral potassium. Furthermore oral repletion has contributed to worsening diarrhea which also contributes to low numbers. On 02/07 her morning labs look improved and she is responding well to the steroid medication started by GI. Hoping for decreased diarrhea today. -For now hold off on additional IV magnesium. Continue her on oral magnesium 400 mg twice daily -Hold off on additional IV potassium. Continue Micro-K 40 mEq 4 times daily. -Phosphorus now normalized. Discontinue K-Phos. -Continue telemetry monitoring -Discharge when stable on an oral regimen. Recheck BMP and magnesium at 2 PM. If magnesium low at that point we will give 2g supplemental IV magnesium. GI consult appreciated to help with management of lymphocytic colitis. C. difficile testing negative. Celiac testing in progress. Steroid now on board. Continue Lomotil and Imodium for diarrhea as well. Consultation with Dr. Diana from nephrology also appreciated. No renal abnormalities or potassium renal losses suspected. Acid-base status reassuring. No aldosterone related abnormalities in the absence of hypertension or metabolic alkalosis. Acute dehydration 11/04/2019 Assessment & Plan (11/04/2019 1:58 PM EST): Patient will head back to the infusion suite for IVF hydration (1L NS over 2 hours). She doesn't require electrolyte repletion today. She will have repeat labwork on 11/07 at her follow up visit. Nausea & vomiting 11/04/2019 Assessment & Plan (02/06/2020 9:45 AM EDT): Chemotherapy induced nausea and vomiting which has been ongoing for several months. Patient does use Zofran and Compazine every 6-8 hours as needed, taken at least twice daily. This was scheduled twice daily with additional IV dose available if needed. -Continue small meals frequently, with a regular, gluten-free diet. Assessment & Plan (11/04/2019 2:13 PM EST): Patient will use her oral zofran at home, as that did help her to finally stop vomiting yesterday. She knows to not allow further suppositories for worry of anal abscess formation. She has been able to tolerate her imodium as well and diarrhea has stopped, she will continue imodium as needed. Overall she feels she has improved in the past 24 hours in that she has been able to tolerate some water and pills which have improved her symptoms. Thickened endometrium 10/13/2019 Assessment & Plan (10/13/2019 3:47 PM EST): Recommend hysteroscopy - SPENCER only to have this done before the start of checmo; chance of malignancy is at most 1% in these polyps as she has not had bleeding x 2 years R&B of surgery discussed She can check with her oncologist re this when he would do chemo if she has the scope; risk infection extremely low H/O radioactive iodine thyroid ablation 09/29/20 19 Hypothyroidism following radioiodine therapy Assessment & Plan (02/05/2020 3:52 PM EDT): Continue home dose of levothyroxine. Peripheral neuropathy 09/29/2019 H/O head injury 09/29/2019 History of elevated antinuclear antibody (AVERY) 1 11/30/2018 Postmenopausal bleeding 09/29/2019 Leg weakness 09/29/2019 Invasive lobular carcinoma of breast in female 1 10/25/2018 Cancer Staging:Clinical stage from 10/01/2019:Stage IB(cT2, cN0(sn), cM0, G2, ER: Positive, ID: Positive, HER2: Positive) - Signed by Schuyler Kamara MD on 10/01/2019 Assessment & Plan (02/08/2020 10:54 AM EDT): Outpatient management by Dr. Kamara. 5 cycles of chemotherapy completed, now on planned treatment with Herceptin and Perjeta. Anemia being watched closely. Hemoglobin this morning 7.1. Type and screen was performed. Minimal symptoms with dilutional effect from her overnight IV fluids. IV fluids discontinued with recheck of CBC at 2 PM. No indication for transfusion at this time, however, patient is agreeable to transfusion if her counts drop further. Lovenox was discontinued. Continue SCDs. Assessment & Plan (11/07/2019 4:36 PM EST): Given how poorly she tolerated cycle 1 of her regimen, we have made a few tweaks. She will take Decadron 4 mg twice a day the day before, and for 4 days after her treatment day. We will change her antiemetic regimen slightly; she will receive Aloxi instead of Zofran on D1; she has been instructed to begin taking zofran 72 hours after she receives the Aloxi. She found zofran very helpful for her nausea and we hope the Aloxi provides longer antiemetic relief initially. We encouraged hydration. We wrote out her antiemetic schedule for her next cycle for her and her 's peace of mind and this was scanned in to her record. She has been instructed to take ativan the evening prior to and the morning of D1C2. She has grade 1 mucositis; we encourage gentle mouth care, warm salt water rinses a few times per day, tepid chamomile tea, and we wrote her for magic mouthwash to pickling operator from the pharmacy if her symptoms worsen this weekend. Her tongue was slightly suspicious for thrush and we/ she will monitor closely. We have not removed Neulasta from her treatment plan, but we expect Dr. Kamara will do so when he sees the patient prior to her next infusion, given her feelings that she had an asthma exacerbation immediately following the Neulasta. Assessment & Plan (11/04/2019 2:11 PM EST): She has a scheduled appt with GF and myself on 11/07 and we can answer further questions regarding adjustments to her treatment plan at that time. We will consider: switching out IV Zofran to IV Aloxi, as well as scheduling her for IV fluids and labwork around cycle day 3 or 4 (given how difficult this first treatment cycle was for her to tolerate). Assessment & Plan (09/24/2019 8:56 AM EST): The patient is status post left breast wire localized lumpectomy and sentinel lymph node biopsy for an ER/ID/HER2 positive, T2N0 malignancy. She is doing well and is surgically done. Bullock are negative. She will be seeing Dr. Kamara of medical oncology shortly and there has already been a discussion regarding infusional treatment. I discussed the risks and benefits of port placement including but not limited to the risks of infection, bleeding, failure to place port, damage to arteries, nerves and veins, damage to surrounding structures, pneumothorax, bruising, infection at the puncture site, port function failure, tube fracture, need for further surgery, and scar. The patient understands these risks and wishes to proceed. She has been having some vaginal bleeding and any biopsy by brooch maker novelty should be done and this issue resolved prior to starting an anti-estrogen medication. I will see her back in three months. Assessment & Plan (09/03/2019 9:08 AM EST): The patient is status post left breast ultrasound guided core biopsy with a diagnosis of invasive lobular carcinoma, grade 2, ER/ID positive, HER2 positive. She presents with questions and to discuss her options. I had a lengthy conversation with her going over the nature of her malignancy, lumpectomy (with radiation expected to follow), sentinel lymph node biopsy with and w/o positive node, possible need for reexcision, recurrence, chemotherapy which may be offered depending on her results, unilateral mastectomy, bilateral mastectomy, estrogen, and hormonal treatment. She is considering bilateral mastectomy and we went over the details of the procedure, drains, and lymphatic massage. She understands that the risk of needing chemotherapy is the same with a lumpectomy as it would be with a mastectomy. She is scheduled for surgery next Sunday and will let us know of her decision soon. Assessment & Plan (08/26/2019 10:58 AM EST): The patient has been diagnosed with an invasive lobular carcinoma of the left breast, grade 2, ER/ID positive. We had a lengthy conversation with regard to her diagnosis and the natural history of breast cancer. I explained treatment options including lumpectomy with radiation therapy, mastectomy and sentinel node biopsy, sentinel node biopsy to mean removal of a single lymph node in the axilla. She understands that if there is malignancy identified in this, either immediately or on a delayed basis, she may require further axillary dissection. The patient understands that there are risks of the procedures including infection, bleeding, need for further surgeries, lymphedema (permanent swelling of the arm) or winged scapula (damage to nerves in the axilla). I also explained the need for medical oncology and potential need for hormone therapy, chemotherapy or even radiation therapy. The patient articulates an understanding of these risks and benefits and of her disease process. The patient articulates an understanding of these risks and benefits and of her disease process. She will be set up with medical oncology. She has opted for left breast wire localized lumpectomy and sentinel lymph node biopsy and we will set her up for that. I will see her back to follow. Chronic fatigue 09/05/2017 Sicca syndrome 09/05/2017 Overview (03/03/2025): Minor salivary gland bx pos in the per patient report Labs 05/2023 ESR 11 AVERY 1:80 DFS ENAs including SSA/SSB all neg; antithyroglobulin Ab neg anti TPO Ab neg C3 nl C4 nl CRP nl IgG / IgA / IgM all nl SPEP neg for monoclonal spike urine protein negative 10/2022 RF neg AVERY 1:40 DFS Labs 06/2024 C3/C4 depressed; ENAs neg; RF neg AVERY NR Flares: worsened oral and ocular sicca / profound fatigue and myalgias / malaise and arthralgias / Tmax 101 but typically 100 / sometimes submandibular and anterior cervical LA / knee swelling bl; most severe the 1st two days Hydroxychloroquine dc'd by patient after 1-2 wks 01/2024; resumed 05/2024 but ultimately not tolerated Assessment & Plan (03/03/2025 12:56 PM EDT): Primary Sjogren's clinically unlikely at this time. She plans to resume pilocarpine for symptomatic benefit. I have advised her that if pilocarpine is effective and well-tolerated and her primary care physician is comfortable refilling it, she does not need to see me on an ongoing basis. However, I am certainly happy to reevaluate for any clinically significant change. I do not think proceeding with lip biopsy as previously discussed is indicated. Assessment & Plan (09/22/2024 3:51 PM EST): Patient dc'd pilocarpine. She c/o persistent and disabling autonomic dysfunction; symptomatically improved with recent empiric prednisone taper rx'd by pulm Dr. Mauricio. Discussed that, if we are able to obtain pathology to confirm Sjogren's, she is a potential candidate for addition of rituximab to treat extra-glandular disease. She missed her ENT evaluation due to miscommunication re: office location but is amenable to re-referral to discuss repeat bx of minor salivary gland. Assessment & Plan (05/22/2024 12:34 PM EDT): Continued prn pilocarpine has been effective. Updated labs with next routine methotrexate labs. Ok to resume hydroxychloroquine per patient preference. She is aware re: need for regular VFT. Dedicated dry eye tx planned for next wk though patient is unable to recall details of this. Assessment & Plan (03/18/2024 4:02 PM EDT): ? Sicca secondary to untreated inflammatory arthritis. Sxs significantly mitigated by prn pilocarpine, which she is tolerating. Trial methotrexate as above and hopefully tx of psoriatic arthritis will decrease sicca sxs. Assessment & Plan (01/24/2024 12:46 PM EDT): Lengthy d/w patient and her today re: likelihood that not all her medical concerns are directly secondary to Sjogren's. Specifically, gastroparesis and plantar fasciitis are atypical manifestations of Sjogren's. Fatigue, peripheral neuropathy, and autonomic dysfunction are all non-specific for underlying Sjogren's. She would like a trial of hydroxychloroquine and I agree that this is reasonable given the overall safety of this medication, though I have counseled her that it may not be effective. She is amenable to adding pilocarpine for symptomatic benefit as well. Dedicated discussion of potential benefit of repeat minor salivary gland bx deferred to f/u given time constraints today. Neck pain 09/05/2017 Primary osteoarthritis involving multiple joints 09/05/2017 Postmenopausal 09/05/2017 Vitamin D insufficiency 09/05/2017 Endometrial polyp Anxiety Assessment & Plan (02/05/2020 3:50 PM EDT): Lorazepam available at home dose if needed. Resolved Problems Problem Noted Date Diagnosed Date Resolved Date Breast cancer in female 06/03/202010/16 Encounters Date Type Department Care Team Description 10/01/2025 Telephone [facility] Oncology Clinic at [address] [address] Schuyler Kamara MD r/s appt 08/11/2025 8:20 AM EDT [facility] [facility] at [address] [address] Schuyler Kamara MD Invasive lobular carcinoma of breast in female (Primary Dx) 08/11/2025 7:30 AM EDT - 08/11/2025 11:59 PM EDT Hospital Encounter [facility] [address] [place] [address] Schuyler Kamara MD Discharge Disposition: Home or Self Care from Last 3 Months Immunizations Immunization Administration Dates Next Due COVID-19 (Pre-08/06) [employer] Vaccine, rS-Ad26, PF 12/18/2020 COVID-19 (Pre-08/06) Idea Device Vaccine, mRNA, PF 08/08/2021 COVID-19 (Pre-08/06) Idea Device Vaccine, mRNA, víctor-sucrose, PF 01/05/2022 Influenza High-Dose Quadriva lent Preservative Free IM 07/05/2023,07/06/2022,07/09/2020 Influenza High-Dose Trivalen t Preservative Free IM 08/07/2024,08/22/2019,01/07/2019 Influenza Quadrivalent Adjuv anted Preservative Free IM 08/08/2021 Influenza Quadrivalent Preservative Free IM 08/16,07/22/2015,08/03/2014 Influenza, Unspecified Formulation 11/15/2006 Pneumococcal conjugate PCV13 09/10/2017 Pneumococcal polysaccharide PPSV23 09/22/2021, RSV Vaccine (bivalent) 11/04/2023 Td (adult),2 Lf Tetanus Toxo id, PF, Adsorbed 03/26/2019 Td, unspecified formulation 10/15/1997 Tdap 11/27/2007 Family History Medical History Relation Comments Alcohol abuse Father Liver disease Father liver failure Schizophrenia Mother Stroke Mother Uterine cancer Mother Graves' disease Sister Liver disease Sister Lupus Sister Schizophrenia Sister Relation Status Comments Father Mother Alive Sister Social History Tobacco Use Types Packs/Day Years Used Date Smoking Tobacco: Never Smokeless Tobacco: Never Tobacco Cessation:Counseling Given: Not Answered Alcohol Use Standard Drinks/Week Comments Never 0 (1 standard drink = 0.6 oz pur e alcohol) Education Answer Date Recorded Are you interested in more education? Not on santos e 02/08/2023 Are you concerned about learning? Not on file 02/08/2023 No 02/08/2023 No 02/08/2023 Digital Access Answer Date Recorded No 03/12/2023 No 03/12/2023 Reliable internet access at home? Not on file 03/12/2023 Device with a working camera? Not on file Intimate Partner Violence Answer Date R ecorded Are you denied basic needs s uch as food, clothing, or medical care? No 10/04/2024 In the past 12 months have y ou been in a relationship with a person who hurts, threatens, or tries to control you? No 10/04/2024 Are you denied basic needs s uch as food, clothing, or medical care? No 10/04/2024 In the past 12 months have y ou been in a relationship with a person who hurts, threatens, or tries to control you? 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 Not on file Not on file Not on f ile Last Filed Vital Signs Vital Sign Reading Time Taken Comments Blood Pressure 121/76 08/11/2025 7:56 AM EDT Pulse 72 08/11/2025 7:56 AM EDT Temperature 35.7 C (96.3 F) 08/11/2025 7:56 AM EDT Respiratory Rate 9 10/04/2024 1:32 PM EST Oxygen Saturation 99% 08/11/2025 7:56 AM EDT Inhaled Oxygen Concentration - - Weight 75.5 kg (166 lb 6.4 oz) 08/11/2025 7:55 A M EDT Height 162.6 cm (5' 4.02 ) 08/11/2025 7:55 AM ED T Body Mass Index 28.55 08/11/2025 7:55 AM EDT Plan of Treatment Upcoming Encounters Date Type Department Care Team (Late st Contact Info) Description 11/25/2025 9:00 AM EST Office Visit [facility] [place] [facility] at [address] [address] Schuyler Kamara MD [address] [place] [address] [email or web address] Health Maintenance Due Date Last Done Comments MENINGOCOCCAL VACCINES (ACWY) (1 - Risk 2-dose series) 1954 MENINGOCOCCAL VACCINES (B) (1 of 4 - Increased Risk) 1962 DEPRESSION SCREENING 1964 HEPATITIS C SCREENING 1970 ZOSTER VACCINES (1 of 2) 1971 COLOGUARD 1997 FIT TEST 1997 FOBT 1997 SIGMOIDOSCOPY 1997 VIRTUAL COLONOSCOPY 1997 TSH LEVEL 08/02/2023 08/02/2022, 06/17, 07/14/2020, Additional history exists COVID-19 VACCINE ( season) 2026 07/15/2025, 08/12/2024, 11/04/2023, Additional history exists CREATININE LEVEL 08/11/2026 08/11/2025, , 06/26/2024, Additional history exists LIPID PANEL 01/16/2028 01/15/2023 Adult Td,Tdap Booster 03/26/2029 03/26/2019 , 11/27/2007, 10/15/1997 COLONOSCOPY 11/17/2031 11/17/2021 COLORECTAL CANCER SCREENING 11/17/2031 OSTEOPOROSIS SCREENING INITIAL (ONE-TIME) Completed 10/17/2017 PNEUMOCOCCAL VACCINES (50+ years) Completed 09/22/2021, 09/10/2017, 10/13/2013 RSV VACCINE Completed 11/04/2023 INFLUENZA VACCINE Completed 06/29/2025, , 07/05/2023, Additional history exists SMOKING STATUS SCREENING (Once After 26 Yrs) Completed 08/11/2025 HEPATITIS A VACCINES Aged Out No long er eligible based on patient's age to complete this topic HIB VACCINES Aged Out No longer eligi ble based on patient's age to complete this topic Medical Devices Implanted - Out of Service Type Area Temporary Help Agency Referral Clerk Device Identifier Shelf Expiration Date Model / Serial / Lot Port Infusion [id number] Lo Profl Sngl Chmbr Ti Dev Fill Sut Plug Attachable Polyuret Cath Lum - Discontinued Per Conversion Use [id number] # [id number] - [id number] Implanted:Qty: 1 on 10/21/2019 by Carmen Jacome MD at [facility] Right: Chest C R BARD 10/14/2020 [id number] / [id number] / [id number] Procedures Procedure Name Priority Date/Time Associated Diagnosis Comments C-REACTIVE PROTEIN (CRP) Routine 08/11/2025 7:30 AM EDT Psoriatic arthritis SEDIMENTATION RATE (ESR) Routine 08/11/2025 7:30 AM EDT Sicca syndrome Psoriatic arthritis COMPLEMENT C4 Routine 08/11/2025 7:30 AM EDT Sicca syndrome COMPLEMENT C3 Routine 08/11/2025 7:30 AM EDT Sicca syndrome CHEMISTRY HOLD Routine 08/11/2025 7:30 AM EDT Invasive lobular carcinoma of breast in female COMPREHENSIVE METABOLIC PANEL (CMP) Routine 08/11/2025 7:30 AM EDT Invasive lobular carcinoma of breast in female CBC AND DIFFERENTIAL Routine 08/11/2025 7:30 AM EDT Invasive lobular carcinoma of breast in female LIPID PANEL Routine 01/15/2023 8:51 AM EDT Screening for lipoid disorders TSH WITH REFLEX Routine 08/02/2022 10:12 AM EDT Hypothyroidism following radioiodine therapy ENDOSCOPY, COLON 11/17/2021 8:0 7 AM EST BD DXA SPINE AND HIP WITH FOREARM Routine 10/17/2017 9:32 AM EST Chronic fatigue Postmenopausal from Last 3 Months or Most Recently Relevant to Health Maintenance Results * CHEMISTRY HOLD (08/11/2025 7:30 AM EDT) CHEMISTRY HOLD RECEIVED [facility] Blood 08/11/2025 7:30 AM EDT 08/11/2025 7:49 AM EDT us Schuyler Kamara MD LAB BLOOD ORDERABLES Final Res ult [address] [address] * (ABNORMAL) Comprehensive metabolic panel (08/11/2025 7:30 AM EDT) SODIUM 140 133 - 146 mmol/L [facility] POTASSIUM 4.5 3.3 - 5.1 mmol/L [facility] CHLORIDE 104 96 - 108 mmol/L [facility] CO2 25 21 - 35 mmol/L [facility] BUN 14 6 - 19 mg/dL [facility] CREATININE 1.00 0.5 - 1.5 mg/dL [facility] GLUCOSE 98 70 - 99 mg/dL [facility] ALBUMIN 4.2 3.9 - 4.8 g/dL [facility] TOTAL PROTEIN 6.9 6.5 - 8.0 g/dL [facility] CALCIUM 9.6 8.4 - 10.3 mg/dL [facility] ALKALINE PHOSPHATASE 76 39 - 117 U/L [facility] TOTAL BILIRUBIN 0.4 0.0 - 1.2 mg/dL [facility] AST 14 0 - 37 U/L [facility] ALT 13 0 - 40 U/L [facility] GLOBULIN 2.7 1 - 4.8 g/dL [facility] EGFR 59(L) >59 mL/min/1.7 3m2 [facility] Comment:Estimated glomerular filtration rate calculated using the CKD-EPI refit equation. ANION GAP 16 10 - 20 mmol/L [facility] Blood 08/11/2025 7:30 AM EDT 08/11/2025 7:49 AM EDT us Schuyler Kamara MD LAB BLOOD BKR ORDERABLES Final Result Performing Organization Address City/[facility]/ZIP Co de Phone Number [address] [address] * Sedimentation rate (ESR) (08/11/2025 7:30 AM EDT) ESR 13 0 - 30 mm/h [facility] Blood 08/11/2025 7:30 AM EDT 08/11/2025 7:49 AM EDT us Ryley Cutler MD, MPH LAB BLOOD BKR ORDERABLES Final Result Performing Organization Address [facility] Co de Phone Number [address] [address] * CBC and differential (08/11/2025 7:30 AM EDT) WBC 5.71 4.00 - 11.00 K/uL [facility] RBC 4.84 4.00 - 5.20 M/uL [facility] HGB 13.9 12.0 - 16.0 g/dL [facility] HCT 42.8 36.0 - 46.0 % [facility] PLT 277 150 - 450 K/uL [facility] MCV 88.4 80.0 - 100.0 fL [facility] MCH 28.7 27.0 - 31.0 pg [facility] MCHC 32.5 32.0 - 36.0 g/dL [facility] RDW 13.2 11.5 - 14.5 % [facility] MPV 10.1 8.4 - 12.0 fL [facility] NRBC 0.00 0.00 /100 WBCs [facility] ABSOLUTE NRBC 0.00 0.00 K/uL [facility] DIFF METHOD Auto [facility] NEUTS 51.4 48.0 - 76.0 % [facility] LYMPHS 36.3 18.0 - 41.0 % [facility] MONOS 7.5 4.0 - 11.0 % [facility] EOS 3.9 0.0 - 5.0 % [facility] BASOS 0.7 0.0 - 1.5 % [facility] Granulocytes, immature (%) 0.2 0.0 - 0.9 % [facility] ABSOLUTE NEUTS 2.94 1.92 - 7.60 K/uL [facility] ABSOLUTE LYMPHS 2.07 0.72 - 4.10 K/uL [facility] ABSOLUTE MONOS 0.43 0.16 - 1.10 K/uL [facility] ABSOLUTE EOS 0.22 0.00 - 0.50 K/uL [facility] ABSOLUTE BASOS 0.04 0.00 - 0.15 K/uL [facility] Granulocytes, immature 0.01 0.00 - 0.09 K/uL [facility] Blood 08/11/2025 7:30 AM EDT 08/11/2025 7:49 AM EDT us Schuyler Kamara MD LAB BLOOD BKR ORDERABLES Final Result [facility] [address] [place] [address] * Complement C3 (08/11/2025 7:30 AM EDT) C3 133 81 - 157 mg/dl [facility] Blood 08/11/2025 7:30 AM EDT 08/11/2025 7:48 AM EDT us Ryley Cutler MD, MPH LAB BLOOD BKR ORDERABLES Final Result [facility] [address] [place] [address] * Complement C4 (08/11/2025 7:30 AM EDT) C4 39 12 - 39 mg/dL [facility] Blood 08/11/2025 7:30 AM EDT 08/11/2025 7:48 AM EDT us Ryley Cutler MD, MPH LAB BLOOD BKR ORDERABLES Final Result [address] [address] * C-Reactive Protein (08/11/2025 7:30 AM EDT) C REACTIVE PROTEIN <3.0 0.0 - 4.0 mg/L [facility] Blood 08/11/2025 7:30 AM EDT 08/11/2025 7:49 AM EDT Ryley Cutler MD, MPH LAB BLOOD BKR ORDERABLES Final Result Performing Organization Address [facility] Co de Phone Number [address] [address] * (ABNORMAL) Lipid panel (01/15/2023 8:51 AM EDT) HDL 88 mg/dL [facility] Comment: Interpretation <40 mg/dL: Low HDL cholesterol (major risk factor for CHD) Greater than or equal to 60 mg/dL: High HDL cholesterol ( negative risk factor for CHD) HDL - cholesterol is affected by a number of factors, e.g. smoking, excerise, hormones, sex and age. CHOLESTEROL 286(H) 0 - 240 mg/dL [facility] TRIGLYCERIDES 110 30 - 160 mg/dL [facility] LDL 176(H) 50 - 129 mg/dL [facility] Comment: LDL levels in terms of risk for coronary heart disease: <100 mg/dL: Optimal 100-129 mg/dL: Near or above optimal 130-159 mg/dL: Borderline high 160-189 mg/dL: High >190 mg/dL: Very High CARDIAC RISK RATIO 3.3 3.3 - 4.4 C [facility] Blood 01/15/2023 8:51 AM EDT 01/15/2023 8:52 AM EDT Tomeka Phan MD LAB BLOOD BKR TONY HART Final Result Performing Organization Address City/[facility]/ZIP Co de Phone Number [address] [address] * (ABNORMAL) TSH with reflex (08/02/2022 10:12 AM EDT) TSH 0.12(L) 0.27 - 4.20 uIU/mL [facility] Blood 08/02/2022 10:1 2 AM EDT 08/02/2022 10:17 AM EDT us Rich Mauricoi MD LAB BLOOD BKR ORDERABLES Final Result Performing Organization Address [facility] Co de Phone Number [address] [address] * ENDOSCOPY, COLON (11/17/2021 8:07 AM EST) Narrative Transcriptions Harrison Dawn MD - 11/17/2021 8:07 AM EST Patient Name: Lucy Yeung Attending MD:: HARRISON DAWN MD, Procedure Date: 11/17/2021 8:07 AM Date of : 1950 Age: 71 Admit Type: Outpatient Gender: Female Room: [place] [address] Referring MD: Tomeka Phan MD Exam Type: Colonoscopy Indications: Change in bowel habits Medications: Monitored Anesthesia Care Procedure: Informed consent was obtained from the patientafter discussion of the indications, limitations, alternatives, benefits, and risks of the procedure. Risks specifically discussed include but are not limited to medication reactions, missed lesions, bleeding, perforation, or the need for emergent surgery. Throughout the procedure, the patient's blood pressure, pulse, end-tidal CO2, and oxygensaturations were monitored continuously. The Olympus pediatric variable colonoscopePCF-[id number] #1 was introduced through the anus and advanced tothe cecum, identified by appendiceal orifice andileocecal valve. The colonoscopy was performed without difficulty. The patient tolerated the procedurewell. The quality of the bowel preparation was excellent. The quality of the bowel preparation was evaluated using the BBPS ([place] Bowel Preparation Scale)with scores of: Right Colon = 3, Transverse Colon = 3and Left Colon = 3 (entire mucosa seen well with no residual staining, small fragments of stool oropaque liquid). The total BBPS score equals 9. Anatomical landmarks were photographed. Complications: No immediate complications. Estimated blood loss: Minimal. Findings: The perianal and digital rectal examinations were normal. Scattered small and large-mouthed diverticula were found in the sigmoid colon. Internal hemorrhoids were found duringretroflexion. The hemorrhoids were mild. The exam was otherwise normal throughout theexamined colon. Biopsies for histology were taken with a coldforceps from the right colon and left colon for evaluationof microscopic colitis. Impression: - Diverticulosis in the sigmoid colon. - Internal hemorrhoids. - Biopsies were taken with a cold forceps from the right colon and left colon for evaluation of microscopic colitis. Recommendation: - Discharge patient to home. - Await pathology results. - Return to GI office as previously scheduled. - Repeat colonoscopy in 10 years for screening purposes. HARRISON DAWN MD, 11/17/2021 8:28:33 AM This report has been signed electronically. Number of Addenda: 0 Note Initiated On: 11/17/2021 8:07 AM Procedure Code(s): --- Professional --- 50417, Colonoscopy, flexible; with biopsy, single or multiple --- Technical --- 97093, Colonoscopy, flexible; with biopsy, single or multiple Diagnosis Code(s): --- Professional --- K64.8, Other hemorrhoids R19.4, Change in bowel habit K57.30, Diverticulosis of large intestine without perforation or abscess without bleeding --- Technical --- K64.8, Other hemorrhoids R19.4, Change in bowel habit K57.30, Diverticulosis of large intestine without perforation or abscess without bleeding CPT copyright 2020 [employer]. All rights reserved. The codes documented in this report are preliminary and upon fruit buyer reviewmay be revised to meet current compliance requirements. Procedure Date: 11/17/2021 8:07:[address] [place] [id number] us Tomeka Phan MD GI PROCEDURE ORDER LISA Final Result * BD DXA SPINE AND HIP WITH FOREARM (10/17/2017 9:32 AM EST) Anatomical Region Laterality Modality Bone Density Bone Density 10/17/2017 9:34 AM EST Impressions 10/17/2017 9:36 AM EST Lumbar spine and left forearm osteopenia. Normal bilateral hip bone density. POS - [id number] Narrative 10/17/2017 9:36 AM EST COMPARISON: None. BONE DENSITY FINDINGS: History: This is a 67-year-old postmenopausal female. Evaluation of the lumbar spine and hips was performed and felt to be technically adequate. Left forearm bone density was also obtained. Total bone mineral density in the L1-L4 vertebral bodies was calculated at 0.780 gm/cm2 with a T-score of -2.4 falling within the WHO classification of osteopenia. Z-score of -0.6.Fracture risk increased. Total bone mineral density in the right hip was calculated at 0.883 gm/cm2 with a T-score of -0.5 falling within the WHO classification of normal. Z-score of 0.8. Total bone mineral density in the left hip was calculated at 0.825 gm/cm2 with a T-score of -1 falling within the WHO classification of normal. Z-score of 0.3. Total bone mineral density in the left hip was calculated at 0.474 gm/cm2 with a T-score of -1.8 falling within the WHO classification of osteopenia. Z-score of 0. Fracture risk increased. Procedure Note Cyndee Barba MD - 10/17/2017 COMPARISON: None. BONE DENSITY FINDINGS: History: This is a 67-year-old postmenopausal female. Evaluation of the lumbar spine and hips was performed and felt to betechnically adequate. Left forearm bone density was also obtained. Total bone mineral density in the L1-L4 vertebral bodies was calculated at0.780 gm/cm2 with a T-score of -2.4 falling within the WHO classificationof osteopenia. Z-score of -0.6.Fracture risk increased. Total bone mineral density in the right hip was calculated at 0.883 gm/mj0ioyd a T-score of -0.5 falling within the WHO classification of normal.Z-score of 0.8. Total bone mineral density in the left hip was calculated at 0.825 gm/zl1zfow a T-score of -1 falling within the WHO classification of normal.Z-score of 0.3. Total bone mineral density in the left hip was calculated at 0.474 gm/gh5bltn a T-score of -1.8 falling within the WHO classification ofosteopenia. Z-score of 0. Fracture risk increased. IMPRESSION: Lumbar spine and left forearm osteopenia. Normal bilateral hip bonedensity. POS - [id number] Maria D Hanson MD [facility] BD BONE DENSITY DEXA Final Result from Last 3 Months or Most Recently Relevant to Health Maintenance Insurance MEDICARE PART A & B MEDICARE SUPPLEMENT MEDICARE PART A & B MEDICARE SUPPLEMENT MEDICARE PART A & B MEDICARE SUPPLEMENT MEDICARE PART A & B Member Subscriber Plan / Payer ( fective 2017-Present) Name:Lucy Yeung Member ID:[id number] Relation to Subscriber:Self Name:Lucy Yeung Subscriber ID:[id number] Payer ID:[id number] Group ID:Not on file Type:Medicare Address: [employer] [address] [place] [address] [place] [address] MEDICARE SUPPLEMENT MEDICARE PART A & B MEDICARE SUPPLEMENT MEDICARE PART A & B MEDICARE SUPPLEMENT MEDICARE PART A & B MEDICARE SUPPLEMENT MEDICARE PART A & B [facility] MEDICARE SUPPLEMENT Member Subscriber Plan / Payer (Ef fective 2018-Present) Name:Lucy Yeung Relation to Subscriber:Self Name:LUCY YEUNG Payer ID:Not on file Type:Indemnity Address: [place] [id number] MEDICARE PART A & B [facility] MEDICARE SUPPLEMENT Advance Directives For more information, please contact: [phone] (9AM - 5PM [facility], Sunday-Julio C) * Full Code (Presumed) (Latest Code Status on File) Date Activated Date Inactivated Comments 06/03/2020 3:46 PM * No Code Status Date Activated Date Inactivated Comments 06/03/2020 6:28 AM 06/03/2020 3:46 PM Code Status: Full Code (Confirmed) * Full Code (Confirmed) Date Activated Date Inactivated Comments 02/06/2020 7:33 AM 06/03/2020 6:01 AM Question Answer Comments Code Status Confirmed With: Patient * Full Code (Presumed) Date Activated Date Inactivated Comments 02/05/2020 3:46 PM 02/06/2020 7:33 AM * Full Code (Presumed) Date Activated Date Inactivated Comments 10/21/2019 11:14 AM 10/21/2019 7:26 PM Care Teams Varnishing Machine Operator Relationship Specialty Start Date End Date Tomeka Sanon MD [address] [place] [phone] [email or web address] PCP - General Family Medicine 10/03/19 Schuyler Kamara MD [address] [place] [id number] [email or web address] Primary Oncologist Medical Oncology 08/16/20 Additional Source Comments The information contained in this document represents components of the legal health record. It is not the complete legal health record.[facility]
--- OUTSIDE RECORDS SUMMARY | 2025-10-12 09:00 | XMS_ITS | Encounter Summary ---
Author Organization [facility] Address [facility] [employer] 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 Not on file Not on f ile documented as of this encounter Plan of Treatment Upcoming Encounters Date Type Department Care Team (Late st Contact Info) Description 11/25/2025 9:00 AM EST Office Visit [facility] [place] [facility] at [address] [address] Schuyler Kamara MD [address] [place] [phone] [email or web address] documented as of this encounter Visit Diagnoses Not on filedocumented in this encounter Additional Health Concerns Infection Onset Date Last Indicated Resolved Time CoV-Risk 10/04/2024 10/04/2024 10/15/2024 1:24 AM EST documented as of this encounter Care Teams Inspector Government Property Relationship Specialty Start Date End Date Tomeka Sanon MD [address] [place] [phone] [email or web address] PCP - General Family Medicine 10/03/19 Schuyler Kamara MD [address] [place] [phone] [email or web address] Primary Oncologist Medical Oncology 08/16/20 documented as of this encounter Additional Source Comments The information contained in this document represents components of the legal health record. It is not the complete legal health record.[facility]
--- OUTSIDE RECORDS SUMMARY | 2025-10-12 09:00 | XMS_ITS | Encounter Summary ---
Author Organization [facility] Address [facility] [address] [place] [address] Phone Care Team Providers Care Ham Stripper Name Role Phone Tomeka Sanon MD Primary Care Prov ider Schuyler Kamara MD Unavailable Encounter Details Date Type Department Care Team (Late Contact Info) Description 04/21/2020 Transcribe Orders [facility] Specimen Processing [address] [place] [address] Nell Sibley, CORA [address] [place], [place] [id number] Hypothyroidism, unspecified type (Primary Dx) Social History Tobacco Use Types Packs/Day Years Used Date Smoking Tobacco: Never Smokeless Tobacco: Never Alcohol Use Standard Drinks/Week Comments Not Currently 0 (1 standard drink = 0.6 oz pur e alcohol) rare/2 drinks per year Comments No Sex and Gender Information Value Date Recorded Sex Assigned at Female 11/01/2019 7:22 PM EST Legal Sex Female 7:32 PM EST Gender Identity Female 11/01/2019 7:22 PM EST Sexual Orientation Straight 11/01/2019 7: 22 PM EST Occupation Industry Job Start Date Job End Date 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 Not on file Not on file Not on f ile documented as of this encounter Plan of Treatment Upcoming Encounters Date Type Department Care Team (Late Contact Info) Description 11/25/2025 9:00 AM EST Office Visit [facility] [place] [facility] at [facility] [address] [place] [address] Schuyler Kamara MD [address] [place] [address] [email or web address] documented as of this encounter Visit Diagnoses Diagnosis Hypothyroidism, unspecified type- Primary documented in this encounter Additional Health Concerns Infection Onset Date Last Indicated Resolved Time CoV-Risk 10/04/2024 10/04/2024 10/15/2024 1:24 AM EST documented as of this encounter Care Teams Ham Stripper Relationship Specialty Start Date End Date Tomeka Sanon MD [address] [place] [phone] [email or web address] PCP - General Family Medicine 10/03/19 Schuyler Kamara MD [address] [place] [phone] [email or web address] Primary Oncologist Medical Oncology 08/16/20 documented as of this encounter Additional Source Comments The information contained in this document represents components of the legal health record. It is not the complete legal health record.[facility]
--- OUTSIDE RECORDS SUMMARY | 2025-10-12 09:00 | XMS_ITS | Encounter Summary ---
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 Not on file Not on f ile documented as of this encounter Plan of Treatment Upcoming Encounters Date Type Department Care Team (Late st Contact Info) Description 11/25/2025 9:00 AM EST Office Visit [facility] [place] [facility] at [address] [address] Schuyler Kamara MD [address] [place] [phone] [email or web address] documented as of this encounter Visit Diagnoses Not on filedocumented in this encounter Additional Health Concerns Infection Onset Date Last Indicated Resolved Time CoV-Risk 10/04/2024 10/04/2024 10/15/2024 1:24 AM EST documented as of this encounter Care Teams Butcher Relationship Specialty Start Date End Date Tomeka Sanon MD [address] [place] [phone] [email or web address] PCP - General Family Medicine 10/03/19 Schuyler Kamara MD [address] [place] [phone] [email or web address] Primary Oncologist Medical Oncology 08/16/20 documented as of this encounter Additional Source Comments The information contained in this document represents components of the legal health record. It is not the complete legal health record.[facility]
--- OUTSIDE RECORDS SUMMARY | 2025-10-12 09:00 | XMS_ITS | Encounter Summary ---
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 Not on file Not on f ile documented as of this encounter Plan of Treatment Upcoming Encounters Date Type Department Care Team (Late st Contact Info) Description 11/25/2025 9:00 AM EST Office Visit [facility] [place] [facility] at [address] [address] Schuyler Kamara MD [address] [place] [phone] [email or web address] documented as of this encounter Visit Diagnoses Not on filedocumented in this encounter Additional Health Concerns Infection Onset Date Last Indicated Resolved Time CoV-Risk 10/04/2024 10/04/2024 10/15/2024 1:24 AM EST documented as of this encounter Care Teams Department Operations Manager Relationship Specialty Start Date End Date Tomeka Sanon MD [address] [place] [phone] [email or web address] PCP - General Family Medicine 10/03/19 Schuyler Kamara MD [address] [place] [address] [email or web address] Primary Oncologist Medical Oncology 08/16/20 documented as of this encounter Additional Source Comments The information contained in this document represents components of the legal health record. It is not the complete legal health record.[facility]
--- OUTSIDE RECORDS SUMMARY | 2025-10-12 09:01 | XMS_ITS | Encounter Summary ---
Author Organization [facility] Address [facility] [address] [place] [address] Phone Care Team Providers Care Associate Brand Manager Name Role Phone Tomeka Sanon MD Primary Care Prov ider Schuyler Kamara MD Unavailable [phone] Encounter Details Date Type Department Care Team (Late Contact Info) Description 10/21/2019 Procedure Pass [place] Admitting Dept - Virtual Department [address] [place] [address] Social History Tobacco Use Types Packs/Day Years Used Date Smoking Tobacco: Never Smokeless Tobacco: Never Alcohol Use Standard Drinks/Week Comments Yes 0 (1 standard drink = 0.6 oz pur e alcohol) rare/2 drinks per year Comments No Sex and Gender Information Value Date Recorded Sex Assigned at Female 11/01/2019 7:22 PM EST Legal Sex Female 7:32 PM EST Gender Identity Female 11/01/2019 7:22 PM EST Sexual Orientation Straight 11/01/2019 7: 22 PM EST Occupation Industry Job Start Date Job End Date Retired Not on file Not on file Not on file documented as of this encounter Plan of Treatment Upcoming Encounters Date Type Department Care Team (Late Contact Info) Description 11/25/2025 9:00 AM EST Office Visit [facility] [place] [facility] at [facility] [address] [place] [address] Schuyler Kamara MD [address] [place] [address] [email or web address] documented as of this encounter Visit Diagnoses Not on filedocumented in this encounter Additional Health Concerns Infection Onset Date Last Indicated Resolved Time Clearance-CoV Comment:For asymptomatic patients undergoing screening for CoV. In the absence of symptoms, no isolation for COVID-19 is indicated unless they are currently COVID-19 confirmed and tests are being performed as part of documentation of resolution of infection. Approved criteria for screening can be found on [employer]. 02/05/2020 02/05/2020 02/08/2020 1:23 AM E DT CoV-Risk 10/04/2024 10/04/2024 10/15/2024 1:24 AM EST documented as of this encounter Care Teams Associate Brand Manager Relationship Specialty Start Date End Date Tomeka Sanon MD [address] [place] [phone] [email or web address] PCP - General Family Medicine 10/03/19 Schuyler Kamara MD [address] [place] [phone] [email or web address] Primary Oncologist Medical Oncology 08/16/20 documented as of this encounter Additional Source Comments The information contained in this document represents components of the legal health record. It is not the complete legal health record.[facility]
--- OUTSIDE RECORDS SUMMARY | 2025-10-12 09:01 | XMS_ITS | Encounter Summary ---
Author Organization [facility] Address [facility] [address] [place] [address] Phone Care Team Providers Care Human Resource Consultant Name Role Phone Tomeka Sanon MD Primary Care Prov ider Tomeka Sanon MD Primary Care Prov ider Schuyler Kamara MD Unavailable [phone] Encounter Details Date Type Department Care Team (Late st Contact Info) Description 09/10/2019 Procedure Pass OR Admitting Dept - Virtual Department [address] [place] [phone] Social History Tobacco Use Types Packs/Day Years Used Date Smoking Tobacco: Never Smokeless Tobacco: Never Alcohol Use Standard Drinks/Week Comments No 0 (1 standard drink = 0.6 oz pur e alcohol) rare/2 drinks per year Comments No Sex and Gender Information Value Date Recorded Sex Assigned at Female 11/01/2019 7:22 PM EST Legal Sex Female 7:32 PM EST Gender Identity Female 11/01/2019 7:22 PM EST Sexual Orientation Straight 11/01/2019 7: 22 PM EST documented as of this encounter Plan of Treatment Upcoming Encounters Date Type Department Care Team (Late st Contact Info) Description 11/25/2025 9:00 AM EST Office Visit [facility] [place] [facility] at [facility] [address] [place] [address] Schuyler Kamara MD [address] [place] [address] documented as of this encounter Visit Diagnoses [...] documented as of this encounter Care Teams Human Resource Consultant Relationship Specialty Start Date End Date Tomeka Sanon MD PCP - General 07/31/17 Tomeka Sanon MD [address] [place] [phone] [email or web address] PCP - General Family Medicine 10/03/19 Schuyler Kamara MD [address] [place] [address] Primary Oncologist Medical Oncology 08/16/20 documented as of this encounter Additional Source Comments The information contained in this document represents components of the legal health record. It is not the complete legal health record.[facility]
--- OUTSIDE RECORDS SUMMARY | 2025-10-12 09:01 | XMS_ITS | Encounter Summary ---
Author Organization [facility] Address [facility] [employer] [facility] [address] [place] [address] Phone Care Team Providers Care Lump Inspector Name Role Phone Tomeka Sanon MD Primary Care Prov ider Schuyler Kamara MD Unavailable [phone] Encounter Details Date Type Department Care Team (Late st Contact Info) Description 03/24/2022 Procedure Pass [facility] [address] [place] [address] Social History Tobacco Use Types Packs/Day Years [...] Description 11/25/2025 9:00 AM EST Office Visit [facility] [place] [facility] at [address] [address] Schuyler Kamara MD [address] [place] [address] [email or web address] documented as of this encounter Visit Diagnoses Not on filedocumented in this encounter Additional Health Concerns Infection Onset Date Last Indicated Resolved Time CoV-Risk 10/04/2024 10/04/2024 10/15/2024 1:24 AM EST documented as of this encounter Care Teams Lump Inspector Relationship Specialty Start Date End Date Tomeka Sanon MD [address] [place] [phone] [email or web address] PCP - General Family Medicine 10/03/19 Schuyler Kamara MD [address] [place] [address] [email or web address] Primary Oncologist Medical Oncology 08/16/20 documented as of this encounter Additional Source Comments The information contained in this document represents components of the legal health record. It is not the complete legal health record.[facility]
--- OUTSIDE RECORDS SUMMARY | 2025-10-12 09:01 | XMS_ITS | Encounter Summary ---
Author Organization [facility] Address [address] [place] [address] [place] [address] Phone Care Team Providers Care Machine Rope Maker Name Role Phone Tomeka Sanon MD Primary Care Prov ider Schuyler Kamara MD Unavailable [phone] Reason for Referral * MRI/CAT Scan - Closed Specialty Diagnoses / Procedures Referred By Rubi cardenas Referred To Contact Radiology Diagnoses Weakness Unspecified abnormalities of gait and mobility Cervicalgia Procedures MRI Cervical Spine Autumn Vásquez NP Phone: tel: fax: Referral ID Status Reason Start Date Expiration Date Visits Re quested Visits Authorized [id number] Closed 07/19/2022 07/19/2023 1 1 * MRI/CAT Scan - Closed Specialty Diagnoses / Procedures Referred By Rubi cardenas Referred To Contact Radiology Diagnoses Low back pain, unspecified back pain laterality, unspecified chronicity, unspecified whether sciatica present Weakness Unspecified abnormalities of gait and mobility Procedures MRI Lumbar Spine Autumn Vásquez NP Phone: tel: fax: Referral ID Status Reason Start Date Expiration Date Visits Re quested Visits Authorized [id number] Closed 07/19/2022 07/19/2023 1 1 Encounter Details Date Type Department Care Team (Latest Contact Info) Description 07/19/2022 Transcribe Orders [facility] Department [address] [place] [address] Autumn Vásquez NP [address] [address] Low back pain, unspecified back pain laterality, unspecified chronicity, unspecified whether sciatica present (Primary Dx); Weakness; Unspecified abnormalities of gait and mobility; Cervicalgia Social History Tobacco Use Types Packs/Day Years [...] 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 Not on file Not on f ile documented as of this encounter Plan of Treatment Upcoming Encounters Date Type Department Care Team (Late st Contact Info) Description 11/25/2025 9:00 AM EST Office Visit [facility] [place] [facility] at [address] [address] Schuyler Kamara MD [address] [place] [address] documented as of this encounter Results * MRI CERVICAL SPINE (BONE) WITHOUT CONTRAST (08/08/2022 3:42 PM EDT) Anatomical Region Laterality Modality C-spine Magnetic Resonan ce 08/09/2022 10:5 5 AM EDT Impressions 08/09/2022 11:14 AM EDT 1.No evidence of a demyelinating process in the cord. Degenerative disc disease and disc spur complex at C4-5 without central canal stenosis. 2.Multilevel neural foraminal stenosis as above which could be correlated with any associated clinical evidence of radiculopathy. Narrative 08/09/2022 11:14 AM EDT MRI CERVICAL SPINE (BONE) WITHOUT CONTRAST TECHNIQUE: MRI CERVICAL SPINE (BONE) WITHOUT CONTRAST Multi-sequence, multi-planar MRI of the cervical spine was performed without intravenous contrast. COMPARISON: None FINDINGS: CERVICAL SPINE: Alignment and Vertebrae: No vertebral body fracture or significant spondylolisthesis. Marrow: No bone marrow replacing lesion. Discs and Endplates: Advanced narrowing of the C5-6 disc space and slightly milder narrowing of the C4-5 space with remodeling of the inferior C4 and superior C5 end plates and with ventral spondylosis. Spinal Cord: No spinal cord mass or focal demyelinating plaque apparent. Linear T2 hyperintense signal within the cord on the sagittal image does not appear to represent demyelinating plaques or enlargement of the central canal on axial images and is of doubtful significance. No focal cord atresia or swelling. Soft Tissue: No evidence of prevertebral edema or paraspinal mass. Findings by level: C2-C3: No focal disc protrusion or central canal stenosis. Neural foramina patent. C3-C4: Minimal disc bulge without focal disc protrusion, central canal stenosis, or significant neural foraminal compromise. C4-C5: Posterior spondylosis and superimposed broad-based disc bulge approximating but not displacing the ventral margin of the cord. Uncovertebral spurring causes bilateral neural foraminal narrowing, minimally more pronounced on the right than left. C5-C6: Posterior bridging osteophytes without focal disc protrusion or central canal stenosis. Uncovertebral spurring appears to cause mild to moderate bilateral neural foraminal narrowing. C6-C7: No focal disc protrusion or central canal stenosis. Uncovertebral spurring causes prominent bilateral (right greater than left) neural foraminal narrowing. C7-T1: Mild disc bulge without focal disc protrusion, central canal stenosis, or advanced neural foraminal compromise. T1-2: Negligible disc bulge without focal disc protrusion, central canal stenosis, or neural foraminal compromise. Sagittal sequences no focal disc protrusion or central canal stenosis are demonstrated at the T2-3, T3-4, or T4-5 levels. Procedure Note Rich Mora MD - 08/09/2022 MRI CERVICAL SPINE (BONE) WITHOUT CONTRAST TECHNIQUE: MRI CERVICAL SPINE (BONE) WITHOUT CONTRAST Multi-sequence, multi-planar MRI of the cervical spine was performedwithout intravenous contrast. COMPARISON: None FINDINGS: CERVICAL SPINE: Alignment and Vertebrae: No vertebral body fracture or significantspondylolisthesis. Marrow: No bone marrow replacing lesion. Discs and Endplates: Advanced narrowing of the C5-6 disc space andslightly milder narrowing of the C4-5 space with remodeling of theinferior C4 and superior C5 end plates and with ventral spondylosis. Spinal Cord: No spinal cord mass or focal demyelinating plaque apparent.Linear T2 hyperintense signal within the cord on the sagittal image doesnot appear to represent demyelinating plaques or enlargement of thecentral canal on axial images and is of doubtful significance. No focalcord atresia or swelling. Soft Tissue: No evidence of prevertebral edema or paraspinal mass. Findings by level: C2-C3: No focal disc protrusion or central canal stenosis. Neural foraminapatent. C3-C4: Minimal disc bulge without focal disc protrusion, central canalstenosis, or significant neural foraminal compromise. C4-C5: Posterior spondylosis and superimposed broad-based disc bulgeapproximating but not displacing the ventral margin of the cord.Uncovertebral spurring causes bilateral neural foraminal narrowing,minimally more pronounced on the right than left. C5-C6: Posterior bridging osteophytes without focal disc protrusion orcentral canal stenosis. Uncovertebral spurring appears to cause mild tomoderate bilateral neural foraminal narrowing. C6-C7: No focal disc protrusion or central canal stenosis. Uncovertebralspurring causes prominent bilateral (right greater than left) neuralforaminal narrowing. C7-T1: Mild disc bulge without focal disc protrusion, central canalstenosis, or advanced neural foraminal compromise. T1-2: Negligible disc bulge without focal disc protrusion, central canalstenosis, or neural foraminal compromise. Sagittal sequences no focal disc protrusion or central canal stenosis aredemonstrated at the T2-3, T3-4, or T4-5 levels. IMPRESSION: 1.No evidence of a demyelinating process in the cord. Degenerative discdisease and disc spur complex at C4-5 without central canal stenosis. 2.Multilevel neural foraminal stenosis as above which could be correlatedwith any associated clinical evidence of radiculopathy. Autumn Campa Thalia DIRECTOR MEDICAID IMG MR XSPECIALTY Fi nal Result * MRI LUMBAR SPINE (NEURO) WITHOUT CONTRAST (08/08/2022 3:42 PM EDT) Anatomical Region Laterality Modality L-spine Magnetic Resonan ce 08/09/2022 11:1 4 AM EDT Impressions 08/09/2022 11:25 AM EDT 1.Small L4-5 disc protrusion with L3-4 and L5-S1 disc bulging of doubtful significance. Bilateral recess stenosis at L3-4 and L4-5 without significant central canal stenosis. Right L4-5 neural foraminal impingement which could be correlated with any associated clinical findings of radiculopathy.. Narrative 08/09/2022 11:25 AM EDT MRI LUMBAR SPINE (NEURO) WITHOUT CONTRAST TECHNIQUE: MRI LUMBAR SPINE (NEURO) WITHOUT CONTRAST Multi-sequence, multi-planar MRI of the lumbar spine was performed without intravenous contrast. COMPARISON: None. FINDINGS: LUMBAR SPINE: No comparison radiograph are available. This dictation is predicated upon the assumption of 5 lumbar vertebral bodies. Alignment and Vertebrae: Normal alignment. No compression fracture. Marrow: There is a rounded lesion of predominantly hyper intense but heterogeneous signal in the left posterolateral aspect of the T12 vertebral body measuring approximately 11 x 17 x 15 mm and felt to be most consistent with cavernous hemangioma. No other significant abnormality of marrow signal noted. Discs and Endplates: Normal intervertebral disc heights and signal. Conus: Normal. Soft Tissues: No paraspinal soft tissue mass apparent. Other Findings: None. Findings by level: T12-L1: No focal disc protrusion, central canal stenosis, or significant neural foraminal compromise. L1-L2: No focal disc protrusion, central canal stenosis, or neural foraminal compromise. L2-L3: Negligible disc bulge without focal disc protrusion, central canal stenosis, or neural foraminal narrowing. Mild to moderate degenerative facet arthropathy. L3-L4: Disc bulge flattening the ventral aspect of the thecal sac which in conjunction with ligamentum flavum hypertrophy contributes to bilateral recess stenosis. Neural foramina are patent without significant central canal stenosis. Prominent hypertrophic degenerative facet arthropathy. L4-L5: Small broad-based disc protrusion versus prominent disc bulge. No central canal stenosis. Prominent hypertrophic facet arthropathy and ligamentum flavum prominence contribute to bilateral recess stenosis. Small right foraminal annular tears and vertebral body endplate spurring contacting but not causing overt mass-effect upon the exiting L4 nerve root. Left neural foramen patent. L5-S1: Mild broad-based disc bulge without focal disc protrusion, central canal stenosis, or significant neural foraminal compromise. Moderate degenerative facet arthropathy. Procedure Note Rich Mora MD - 08/09/2022 MRI LUMBAR SPINE (NEURO) WITHOUT CONTRAST TECHNIQUE: MRI LUMBAR SPINE (NEURO) WITHOUT CONTRAST Multi-sequence, multi-planar MRI of the lumbar spine was performed withoutintravenous contrast. COMPARISON: None. FINDINGS: LUMBAR SPINE: No comparison radiograph are available. This dictation is predicated uponthe assumption of 5 lumbar vertebral bodies. Alignment and Vertebrae: Normal alignment. No compression fracture. Marrow: There is a rounded lesion of predominantly hyper intense butheterogeneous signal in the left posterolateral aspect of the [id number] body measuring approximately 11 x 17 x 15 mm and felt to be mostconsistent with cavernous hemangioma. No other significant abnormality ofmarrow signal noted. Discs and Endplates: Normal intervertebral disc heights and signal. Conus: Normal. Soft Tissues: No paraspinal soft tissue mass apparent. Other Findings: None. Findings by level: T12-L1: No focal disc protrusion, central canal stenosis, or significantneural foraminal compromise. L1-L2: No focal disc protrusion, central canal stenosis, or neuralforaminal compromise. L2-L3: Negligible disc bulge without focal disc protrusion, central canalstenosis, or neural foraminal narrowing. Mild to moderate degenerativefacet arthropathy. L3-L4: Disc bulge flattening the ventral aspect of the thecal sac which inconjunction with ligamentum flavum hypertrophy contributes to bilateralrecess stenosis. Neural foramina are patent without significant centralcanal stenosis. Prominent hypertrophic degenerative facet arthropathy. L4-L5: Small broad-based disc protrusion versus prominent disc bulge. Nocentral canal stenosis. Prominent hypertrophic facet arthropathy andligamentum flavum prominence contribute to bilateral recess stenosis.Small right foraminal annular tears and vertebral body endplate spurringcontacting but not causing overt mass-effect upon the exiting L4 nerveroot. Left neural foramen patent. L5-S1: Mild broad-based disc bulge without focal disc protrusion, centralcanal stenosis, or significant neural foraminal compromise. Moderatedegenerative facet arthropathy. IMPRESSION: 1.Small L4-5 disc protrusion with L3-4 and L5-S1 disc bulging of doubtfulsignificance. Bilateral recess stenosis at L3-4 and L4-5 withoutsignificant central canal stenosis. Right L4-5 neural foraminalimpingement which could be correlated with any associated clinicalfindings of radiculopathy.. Autumn Vásquez DIRECTOR MEDICAID IMG MR XSPECIALTY Fi nal Result documented in this encounter Visit Diagnoses Diagnosis Low back pain, unspecified back pain laterality, unspecified chronicity, unspecified whether sciatica present- Primary Weakness Other malaise and fatigue Unspecified abnormalities of gait and mobility Cervicalgia Weakness Other malaise and fatigue Unspecified abnormalities of gait and mobility Cervicalgia Low back pain, unspecified back pain laterality, unspecified chronicity, unspecified whether sciatica present Weakness Other malaise and fatigue Unspecified abnormalities of gait and mobility documented in this encounter Additional Health Concerns Infection Onset Date Last Indicated Resolved Time CoV-Risk 10/04/2024 10/04/2024 10/15/2024 1:24 AM EST documented as of this encounter Care Teams Machine Rope Maker Relationship Specialty Start Date End Date Tomeka Sanon MD [address] [place] [phone] [email or web address] PCP - General Family Medicine 10/03/19 Schuyler Kamara MD [address] [place] [phone] [email or web address] Primary Oncologist Medical Oncology 08/16/20 documented as of this encounter Additional Source Comments The information contained in this document represents components of the legal health record. It is not the complete legal health record.[facility]
--- OUTSIDE RECORDS SUMMARY | 2025-10-12 09:01 | XMS_ITS | Encounter Summary ---
Author Organization [facility] Address [address] [place] [address] Phone Care Team Providers Care Multiple Spindle Screw Machine Operator Name Role Phone Tomeka Sanon MD Primary Care Prov ider Schuyler Kamara MD Unavailable [phone] Encounter Details Date Type Department Care Team (Late st Contact Info) Description 01/22/2024 Procedure Pass [facility], Ct Scan - [address] [address] Social History Tobacco Use Types Packs/Day Years [...] with a working camera? 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 Not on file Not on file Not on f ile documented as of this encounter Plan of Treatment Upcoming Encounters Date Type Department Care Team (Late st Contact Info) Description 11/25/2025 9:00 AM EST Office Visit [facility] Hematology Oncology Clinic at [address] [address] Schuyler Kamara MD [address] [place] [phone] [email or web address] documented as of this encounter Visit Diagnoses Not on filedocumented in this encounter Additional Health Concerns Infection Onset Date Last Indicated Resolved Time CoV-Risk 10/04/2024 10/04/2024 10/15/2024 1:24 AM EST documented as of this encounter Care Teams Multiple Spindle Screw Machine Operator Relationship Specialty Start Date End Date Tomeka Sanon MD [address] [place] [phone] [email or web address] - General [email or web address] Medicine 10/03/19 Schuyler Kamara MD [address] [place] [phone] [email or web address] Primary Oncologist Medical Oncology 08/16/20 documented as of this encounter Additional Source Comments The information contained in this document represents components of the legal health record. It is not the complete legal health record.[facility]
--- OUTSIDE RECORDS SUMMARY | 2025-10-12 09:01 | XMS_ITS | Encounter Summary ---
Author Organization [facility] Address [address] [place] [phone] Phone Care Team Providers Care Motor Tune Up Specialist Name Role Phone Tomeka Sanon MD Primary Care Prov ider Tomeka Sanon MD Primary Care Prov ider Schuyler Kamara MD Unavailable [phone] Encounter Details Date Type Department Care Team (Late st Contact Info) Description 08/01/2019 Ancillary Orders [facility] Department [address] [place] [address] Autumn Vásquez NP [address] [place] [address] Episode of generalized weakness Social History Tobacco Use Types Packs/Day Years [...] Description 11/25/2025 9:00 AM EST Office Visit [facility] [place] [facility] Oncology Clinic at [facility] [address] [place] [address] Schuyler Kamara MD [address] [place] [address] [email or web address] documented as of this encounter Results * EEG (08/12/2019 9:16 AM EDT) Anatomical Region Laterality Modality EEG Narrative 08/12/2019 3:55 PM EDT [facility] ELECTROENCEPHALOGRAPHY (EEG) LAB INTRODUCTION: The patient is a 69 year old woman referred for a question of seizures described as episodes of generalized weakness MEDICATIONS: None CONDITION OF RECORDING: Digitally recorded EEG with the patient awake and drowsy with no instructions for sleep deprivation. All electrodes were applied in accordance with the International 10-20 System. A single channel EKG lead was recorded to help identify artifact. SPECIAL PROCEDURES: None. EEG DESCRIPTION: Abnormality #1: There are a few independent blunted sharp forms in the left mid temporal region. There are also a few brief less than 2-second bursts of sharply contoured theta slowing involving the left temporal region. Background: Cerebral electrical activity with the patient awake was characterized by a well organized background with a 9-11 Hz, 10-20uV posterior maximum reactive alpha rhythm with significant overriding beta activity. Patient became drowsy but did not enter stage II sleep. Photic stimulation did not yield any abnormalities. Hyperventilation was not performed. INTERPRETATION: This routine EEG, obtained with the patient awake and drowsy, is abnormal due to the presence of a few blunted sharp forms and sharply contoured slowing involving the left temporal region. This is suggestive of, but not entirely diagnostic for, a possible epileptic focus or a possible underlying structural abnormality in this region. There were no evolving patterns suggestive of seizure, and the patient did not report any symptoms. Clinical correlation and correlation with neuroimaging is advised. COMMENT: If an epileptic seizure disorder is still suspected, more prolonged EEG recording such as 24 hour AEEG or VEEG monitoring may be useful. Antwan Beck MD [facility] Neurology Autumn Vásquez NP NEUROLOGY ORDERABLES Final Result documented in this encounter Visit Diagnoses Diagnosis Episode of generalized weakness Episode of generalized weakness documented in this encounter Additional Health Concerns [...] documented as of this encounter Care Teams Motor Tune Up Specialist Relationship Specialty Start Date End Date Tomeka Sanon MD [email or web address] PCP - General 07/31/17 Tomeka Sanon MD [address] [place] [phone] [email or web address] PCP - General Family Medicine 10/03/19 Schuyler Kamara MD [address] [place] [phone] [email or web address] Primary Oncologist Medical Oncology 08/16/20 documented as of this encounter Additional Source Comments The information contained in this document represents components of the legal health record. It is not the complete legal health record.[facility]
--- OUTSIDE RECORDS SUMMARY | 2025-10-12 09:01 | XMS_ITS | Clinical Summary ---
Author Organization Miguelina Balderas [facility] Address [address] [place] [address] Care Team Providers Care Mercury Purifier Name Role Phone Rich Sommer MD Primary Care Provider [phone] Rich Sommer MD Unavailable [phone] Medications SYNTHROID 112 mcg tablet TAKE 1 TABLET DAILY 30 tablet 2 06/24/2015 Active SYNTHROID 112 mcg tablet TAKE 1 TABLET BY MOUTH EVERY DAY 30 tablet 0 06/30/2016 Active Active Problems Problem Noted Date Diagnosed Date Postconcussion syndrome 02/11/2015 Memory loss 02/11/2015 Anxiety state, unspecified 02/11/2015 Immunizations Immunization Administration Dates Next Due Influenza, Unspecified 11/15/2006 Pneumococcal polysaccharide vaccine 23-valent (PPSV23/[id number]) 10/13/2013 Td, Unspecified 10/15/1997 Tdap Vaccine (BOOSTRIX/ADACEL) 11/27/2007 Social History Tobacco Use Types Packs/Day Years Used Date Smoking Tobacco: Never Assessed Comments Unknown Sex and Gender Information Value Date Recorded Sex Assigned at Not on file Legal Sex Female 10:15 PM EST Gender Identity Not on file Sexual Orientation Not on file Plan of Treatment Not on file Insurance [facility] Care Teams Mercury Purifier Relationship Specialty Start Date End Date Rich Sommer MD [address] [place] [phone] PCP - General 08/24/14 Rich Sommer MD [address] [place] [address] 08/24/14
--- OUTSIDE RECORDS SUMMARY | 2025-10-12 09:01 | XMS_ITS | Encounter Summary ---
Author Organization 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 [place] Hematology Oncology Clinic at [facility] [address] [place] [address] Schuyler Kamara MD [address] [place] [address] [email or web address] documented as of this encounter Visit Diagnoses Not on filedocumented in this encounter Additional Health Concerns Infection Onset Date Last Indicated Resolved Time CoV-Risk 10/04/2024 10/04/2024 10/15/2024 1:24 AM EST documented as of this encounter Care Teams Train Crew Member Relationship Specialty Start Date End Date Tomeka Sanon MD [address] [place] [phone] [email or web address] PCP - General Family Medicine 10/03/19 Schuyler Kamara MD [address] [place] [phone] [email or web address] Primary Oncologist Medical Oncology 08/16/20 documented as of this encounter Additional Source Comments The information contained in this document represents components of the legal health record. It is not the complete legal health record.[facility]
--- OUTSIDE RECORDS SUMMARY | 2025-10-12 09:01 | XMS_ITS | Encounter Summary ---
Author Organization [facility] Address [facility] access hospital [address] [place] [address] Phone Care Team Providers Care Visual Educator Name Role Phone Tomeka Sanon MD Primary Care Prov ider Tomeka Sanon MD Primary Care Prov ider Schuyler Kamara MD Unavailable [phone] Encounter Details Date Type Department Care Team (Late st Contact Info) Description 07/31/2019 Procedure Pass [address] [address] Social History Tobacco Use Types Packs/Day Years [...] 11/25/2025 9:00 AM EST Office Visit [facility] [place] [facility] at [address] [address] Schuyler Kamara MD [address] [place] [phone] [email or web address] documented as of this encounter Visit Diagnoses [...] documented as of this encounter Care Teams Visual Educator Relationship Specialty Start Date End Date Tomeka Sanon MD PCP - General 07/31/17 Tomeka Sanon MD [address] [place] [phone] [email or web address] PCP - General Family Medicine 10/03/19 Schuyler Kamara MD [address] [place] [address] Primary Oncologist Medical Oncology 08/16/20 documented as of this encounter Additional Source Comments The information contained in this document represents components of the legal health record. It is not the complete legal health record.[facility]
--- OUTSIDE RECORDS SUMMARY | 2025-10-12 09:01 | XMS_ITS | Encounter Summary ---
Author Organization 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 Weakness Unspecified abnormalities of gait and mobility Procedures MRI Brain Autumn Vásquez NP [address] [address] Phone: tel: fax: Referral ID Status Reason Start Date Expiration Date Visits Re quested Visits Authorized [id number] Closed 01/15/2024 01/14/2025 1 1 Encounter Details Date Type Department Care Team (Latest Contact Info) Description 01/15/2024 Transcribe Orders Virtual Department [address] [place] [address] Autumn Vásquez NP [address] [address] Paresthesia of skin (Primary Dx); Thyrotoxicosis with diffuse goiter without thyrotoxic crisis or storm; Unspecified mental disorder due to known physiological condition; Weakness; Unspecified abnormalities of gait and mobility Social History Tobacco Use Types Packs/Day Years [...] 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 [place] [facility] at [address] [address] Schuyler Kamara MD [address] [place] [phone] [email or web address] documented as of this encounter Results * MRI BRAIN (MS) WITH AND WITHOUT CONTRAST (02/10/2024 8:03 AM EDT) Anatomical Region Laterality Modality Head Magnetic Resonan ce 02/10/2024 7:52 PM EDT Impressions 02/12/2024 9:27 PM EDT No intracranial cause for the reported symptoms identified. Narrative 02/12/2024 9:27 PM EDT MRI BRAIN (MS) WITH AND WITHOUT CONTRAST Referring clinician's provided indication for this examination in [facility]: Outside Radiology Order; paresthesia of skin TECHNIQUE: MRI BRAIN (MS) WITH AND WITHOUT CONTRAST Multi-sequence, multi-planar MRI of the brain was performed before and after intravenous contrast. COMPARISON: MRI 08/12/2019 FINDINGS: Brain Parenchyma: There is mild scattered T2/FLAIR hyperintensity in the periventricular and deep white matter which is nonspecific and can be seen in the setting of chronic small vessel disease. No evidence of acute infarct, mass lesion, or hemorrhage. Ventricular System and Extra-Axial Spaces: Normal. No evidence of midline shift or hydrocephalus. Extracranial Structures: Arterial flow voids in the skull base are present. Procedure Note Sam Lopez MD - 02/12/2024 MRI BRAIN (MS) WITH AND WITHOUT CONTRAST Referring clinician's provided indication for this examination in [facility]:Outside Radiology Order; paresthesia of skin TECHNIQUE: MRI BRAIN (MS) WITH AND WITHOUT CONTRAST Multi-sequence, multi-planar MRI of the brain was performed before andafter intravenous contrast. COMPARISON: MRI 08/12/2019 FINDINGS: Brain Parenchyma: There is mild scattered T2/FLAIR hyperintensity in theperiventricular and deep white matter which is nonspecific and can be seenin the setting of chronic small vessel disease. No evidence of acuteinfarct, mass lesion, or hemorrhage. Ventricular System and Extra-Axial Spaces: Normal. No evidence of midlineshift or hydrocephalus. Extracranial Structures: Arterial flow voids in the skull base arepresent. IMPRESSION: No intracranial cause for the reported symptoms identified. 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 Weakness Other malaise and fatigue Unspecified abnormalities of gait and mobility documented in this encounter Additional Health Concerns Infection Onset Date Last Indicated Resolved Time CoV-Risk 10/04/2024 10/04/2024 10/15/2024 1:24 AM EST documented as of this encounter Care Teams Furnace Cleaner Relationship Specialty Start Date End Date Tomeka Sanon MD [address] [place] [phone] [email or web address] PCP - General Family Medicine 10/03/19 Schuyler Kamara MD [address] [place] [phone] [email or web address] Primary Oncologist Medical Oncology 08/16/20 documented as of this encounter Additional Source Comments The information contained in this document represents components of the legal health record. It is not the complete legal health record.[facility]
--- OUTSIDE RECORDS SUMMARY | 2025-10-12 09:01 | XMS_ITS | Encounter Summary ---
Author Organization Miguelina Balderas [facility] Address [address] [place] [address] Care Team Providers Care Interstate Planner Name Role Phone Rich Sommer MD Primary Care Provider [phone] Rich Sommer MD Primary Care Provider [phone] Rich Sommer MD Unavailable [phone] Encounter Details Date Type Department Care Team (Late st Contact Info) Description 10/28/2013 Clinical Conversion Encounter GENERAL CONVERSION Sergey Gutierrez MD [address] [place] [address] Social History Tobacco Use Types Packs/Day Years Used Date Smoking Tobacco: Never Assessed Comments Unknown Sex and Gender Information Value Date Recorded Sex Assigned at Not on file Legal Sex Female 10:15 PM EST Gender Identity Not on file Sexual Orientation Not on file documented as of this encounter ED Notes * Sergey Gutierrez MD - 05/08/2015 12:33 PM EDT [facility] Name: [facility] Rojelio Graff # [id number] : [birth year] Age: 63 Sex: F EMERGENCY REPORT DEP ER Location: ER Date: 10/27/13 Time: 1102 cc: PCP Rich Sommer M.D. CHIEF COMPLAINT: Blurred vision. HISTORY OF PRESENT ILLNESS: The patient is a 63-year-old female. On October 24, 2013, she was in a field. She slipped on some ice falling backward, hitting the back of her head on ice. She did not pass out, but she states she saw stars. She did not initially come to the ED. She came to the ED the following day secondary to severe headache. She had a head CT, cervical spine CT and a thoracic spine x-ray performed that were unremarkable. The patient was discharged home with a prescription for oxycodone, Zofran DDT and ibuprofen 800 mg. The patient states she has been taking the Zofran every 6 hours and has persistent nausea, but no vomiting. She has taken ibuprofen 800 mg intermittently, none today, but this causes GI upset. She states it always bothers her stomach, although it does seem to decrease the headache somewhat. She is using oxycodone every 6 hours. She took a dose this morning. She does not feel this is helping. She is not taking more than 1 at a time. She states her headache today has actually improved from yesterday. It is 5/10, it is frontal in location, not occipital. She called her PCP to see if she could take aspirin, because she states the aspirin usually works for her headaches; however because she was having blurred vision, they sent her to the emergency department. PAST MEDICAL HISTORY: Migraine headaches, hypothyroidism, and LASIK surgery. MEDICATIONS: As above, Synthroid. ALLERGIES: Sulfa, adverse reaction to Compazine and Reglan. SOCIAL HISTORY: No tobacco. Here with her . Rare alcohol use. 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 REVIEW OF SYSTEMS: As above. General: No fevers. Neurologic: As above. No numbness or weakness of arms or legs. Ophthalmologic: As above. No diplopia or seeing spots. ENT: No sneezing or sore throat. Her neck pain has resolved. Pulmonary: No cough or shortness of breath. Cardiovascular: No chest pain. GI: No abdominal pain. She has had no vomiting. No diarrhea. Musculoskeletal: No extremity pain. PHYSICAL EXAMINATION: Vital signs: Temperature 98.1 degrees, blood pressure 126/85, pulse 80, respiratory rate 20, and oxygen saturation 99% on room air. Pain scale 5/10. General: The patient is awake, alert, oriented x3, pleasant, and appears well. Skin: Dry and well perfused. No rash, petechiae, purpura, or jaundice. Head is normocephalic and atraumatic without hematomas. Eyes: Extraocular movements are intact. Pupils are 5 mm, round and reactive. Corneae and sclerae are clear. TM: Moderate cerumen [facility] Name: [facility] MR # [id number] EMERGENCY REPORT continued Date: 10/27/13 bilaterally. Poor visualization of the tympanic membrane. No Lock's sign. Nares are clear. Oropharynx is clear. Neck: Supple. No posterior midline tenderness. No paravertebral tenderness. Full range of motion without discomfort. Cardiovascular: Regular rate and rhythm with 1/6 systolic murmur. The patient was notified of this finding. Lungs: Clear to auscultation. Back: No spinal tenderness. No paravertebral tenderness. Abdomen: Normal bowel sounds, soft and nontender. No masses. Extremities: No clubbing, cyanosis, or edema. All joints have full range of motion. No bony tenderness. Radial pulse and DP pulse are 2+ bilaterally. Neurologic exam: GCS is 15. Cranial nerves 3 through 12 are intact. Sensation and strength are intact throughout. EMERGENCY DEPARTMENT COURSE: The patient received Zofran 4 mg IV, normal saline 1 liter IV. She felt much better. She was given Tylenol 1 g p.o. for headache and Prilosec 40 mg p.o. Visual acuity with pinpoint was obtained 20/40 on the left and 20/70 on the right. Certainly, abnormal of unclear cause, most likely primary ocular and chronic. Screening labs were obtained. ACP is normal. CBC is normal. EMERGENCY DEPARTMENT DECISION MAKING: The patient's signs and symptoms are consistent with post-concussive syndrome. No evidence clinically to suggest emergent change or intracranial hemorrhage. Some of the nausea may be due to post-concussive syndrome versus antiinflammatory. We will try and protect it with H2 blockers. She also should be on brain rest and therefore, I will give her 1 week off from work. ASSESSMENT: 1. Post-concussive syndrome. 2. 10/20 heart murmur, incidental finding. PLAN: The patient will be given instructions on concussion. She is to use Tylenol as a primary pain control followed by low dose ibuprofen. She will be placed on Protonix 40 mg daily while taking antiinflammatories. Avoid oxycodone, 1 week off work, brain rest for at least 1 week. Follow up with the PCP if not gradually improving over the next 3 to 7 days, sooner as needed, return as needed. [id number] /[id number] TD: 8:46 A [facility] Name: [facility] MR # [id number] EMERGENCY REPORT continued Date: 10/27/13 KIMBERLY ROMERO Dictated by: Sergey Gutierrez M.D. ELECTRONICALLY SIGNED 10/31/13 0801 TO: //summer// //add1// //add2// //add3// Report #: [id number] documented in this encounter Plan of Treatment Not on file documented as of this encounter Visit Diagnoses Not on filedocumented in this encounter Care Teams Interstate Planner Relationship Specialty Start Date End Date Rich Sommer MD [address] [place] [address] PCP - General 10/27/13 08/23/14 Rich Sommer MD [address] [place] [address] PCP - General 08/24/14 Rich Sommer MD [address] [place] [address] 08/24/14 documented as of this encounter
--- OUTSIDE RECORDS SUMMARY | 2025-10-12 09:01 | XMS_ITS | Encounter Summary ---
Author Organization [facility] Address [facility] [address] [place] [address] Phone Care Team Providers Care Supervisor Cooler Service Name Role Phone Tomeka Sanon MD Primary Care Prov ider Tomeka Sanon MD Primary Care Prov ider Schuyler Kamara MD Unavailable [phone] Encounter Details Date Type Department Care Team (Late st Contact Info) Description 01/10/2018 Procedure Pass [address] [address] Social History Tobacco Use Types Packs/Day Years Used Date Smoking Tobacco: Never Smokeless Tobacco: Never Alcohol Use Standard Drinks/Week Comments No 0 (1 standard drink = 0.6 oz pur e alcohol) rare/2 drinks per year Comments Unknown Sex and Gender Information Value [...] 9:00 AM EST Office Visit [facility] [place] [facility] at [address] [address] Schuyler Kamara MD [address] [place] [phone] documented as of this encounter Visit Diagnoses [...] documented as of this encounter Care Teams Supervisor Cooler Service Relationship Specialty Start Date End Date Tomeka Sanon MD PCP - General 07/31/17 Tomeka Sanon MD [address] [place] [phone] [email or web address] PCP - General Family Medicine 10/03/19 Schuyler Kamara MD [address] [place] [address] Primary Oncologist Medical Oncology 08/16/20 documented as of this encounter Additional Source Comments The information contained in this document represents components of the legal health record. It is not the complete legal health record.[facility]
--- OUTSIDE RECORDS SUMMARY | 2025-10-12 09:01 | XMS_ITS | Encounter Summary ---
Author Organization [facility] Address [facility] [address] [place] [address] Phone Care Team Providers Care Memorial Designer Name Role Phone Tomeka Sanon MD Primary Care Prov ider Tomeka Sanon MD Primary Care Prov ider Schuyler Kamara MD Unavailable [phone] Encounter Details Date Type Department Care Team (Late st Contact Info) Description 08/25/2019 Ancillary Orders [facility],Outside Imaging [address] [place] [address] [phone] System, Provider Not In, [place] [address] Social History Tobacco Use Types Packs/Day Years [...] Description 11/25/2025 9:00 AM EST Office Visit [facility] at [facility] [address] [place] [address] Schuyler Kamara MD [address] [place] [phone] [email or web address] documented as of this encounter Results * US Breast Outside (No Interpretation) (08/19/2019 12:05 AM EST) Narrative SYSTEMGENERATED, DOCUMENTATION - 08/25/2019 4:36 PM EST This study is for PACS storage only and not for interpretation. us Provider Not In System PhD IMG OUTSIDE IMAGING W /OUT INTERPRETATION Final Result * Mammogram Outside (No Interpretation) (08/19/2019 12:00 AM EST) Narrative SYSTEMGENERATED, DOCUMENTATION - 08/25/2019 4:35 PM EST This study is for PACS storage only and not for interpretation. us Provider Not In System PhD IMG OUTSIDE IMAGING W /OUT INTERPRETATION Final Result * US Breast Outside (No Interpretation) (08/15/2019 12:00 AM EDT) Narrative SYSTEMGENERATED, DOCUMENTATION - 08/25/2019 4:35 PM EST This study is for PACS storage only and not for interpretation. us Provider Not In System PhD IMG OUTSIDE IMAGING W /OUT INTERPRETATION Final Result * Mammogram Outside (No Interpretation) (08/05/2019 12:00 AM EDT) Narrative SYSTEMGENERATED, DOCUMENTATION - 08/25/2019 4:36 PM EST This study is for PACS storage only and not for interpretation. us Provider Not In System PhD IMG OUTSIDE IMAGING W /OUT INTERPRETATION Final Result documented in this encounter Visit Diagnoses Not on filedocumented [...] criteria for screening can be found on [employer] Pulse. 02/05/2020 02/05/2020 02/08/2020 1:23 AM E DT CoV-Risk 10/04/2024 10/04/2024 10/15/2024 1:24 AM EST documented as of this encounter Care Teams Memorial Designer Relationship Specialty Start Date End Date Tomeka Sanon MD PCP - General 07/31/17 Tomeka Sanon MD [address] [place] [phone] [email or web address] PCP - General Family Medicine 10/03/19 Schuyler Kamara MD [address] [place] [phone] [email or web address] Primary Oncologist Medical Oncology 08/16/20 documented as of this encounter Additional Source Comments The information contained in this document represents components of the legal health record. It is not the complete legal health record.[facility]
--- OUTSIDE RECORDS SUMMARY | 2025-10-12 09:01 | XMS_ITS | Encounter Summary ---
Author Organization [facility] Address [facility] [address] [place] [address] Phone Care Team Providers Care Security Alarm Technician Name Role Phone Tomeka Sanon MD Primary Care Prov ider Schuyler Kamara MD Unavailable [phone] Encounter Details Date Type Department Care Team (Late st Contact Info) Description 01/22/2024 Procedure Pass [facility], Ct Scan - [address] [address] Social History Tobacco Use Types Packs/Day Years [...] Description 11/25/2025 9:00 AM EST Office Visit [facility] Hematology Oncology Clinic at [address] [address] Schuyler Kamara MD [address] [place] [phone] [email or web address] documented as of this encounter Visit Diagnoses Not on filedocumented in this encounter Additional Health Concerns Infection Onset Date Last Indicated Resolved Time CoV-Risk 10/04/2024 10/04/2024 10/15/2024 1:24 AM EST documented as of this encounter Care Teams Security Alarm Technician Relationship Specialty Start Date End Date Tomeka Sanon MD [address] [place] [phone] [email or web address] PCP - General Family Medicine 10/03/19 Schuyler Kamara MD [address] [place] [phone] [email or web address] Primary Oncologist Medical Oncology 08/16/20 documented as of this encounter Additional Source Comments The information contained in this document represents components of the legal health record. It is not the complete legal health record.[facility]
--- OUTSIDE RECORDS SUMMARY | 2025-10-12 09:01 | XMS_ITS | Encounter Summary ---
Author Organization [facility] Address [facility] [address] [place] [address] Phone Care Team Providers Care Headlight Assembler Name Role Phone Tomeka Sanon MD Primary Care Prov ider Tomeka Sanon MD Primary Care Prov ider Schuyler Kamara MD Unavailable [phone] Encounter Details Date Type Department Care Team (Late st Contact Info) Description 08/26/2019 Procedure Pass [address] [address] Social History Tobacco Use Types Packs/Day Years [...] 11/25/2025 9:00 AM EST Office Visit [facility] [place] [facility] Clinic at [address] [address] Schuyler Kamara MD [address] [place] [phone] [email or web address] documented as of this encounter Visit Diagnoses [...] documented as of this encounter Care Teams Headlight Assembler Relationship Specialty Start Date End Date Tomeka Sanon MD PCP - General 07/31/17 Tomeka Sanon MD [address] [place] [phone] [email or web address] PCP - General Family Medicine 10/03/19 Schuyler Kamara MD [address] [place] [address] [email or web address] Primary Oncologist Medical Oncology 08/16/20 documented as of this encounter Additional Source Comments The information contained in this document represents components of the legal health record. It is not the complete legal health record.[facility]
--- OUTSIDE RECORDS SUMMARY | 2025-10-12 09:01 | XMS_ITS | Encounter Summary ---
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 Not on file Not on file Not on f ile documented as of this encounter Plan of Treatment Upcoming Encounters Date Type Department Care Team (Late st Contact Info) Description 11/25/2025 9:00 AM EST Office Visit [facility] Hematology Oncology Clinic at [address] [address] Schuyler Kamara MD [address] [place] [phone] [email or web address] documented as of this encounter Visit Diagnoses Not on filedocumented in this encounter Additional Health Concerns Infection Onset Date Last Indicated Resolved Time CoV-Risk 10/04/2024 10/04/2024 10/15/2024 1:24 AM EST documented as of this encounter Care Teams Financial Management Analyst Relationship Specialty Start Date End Date Tomeka Sanon MD [address] [place] [phone] [email or web address] PCP - General Family Medicine 10/03/19 Schuyler Kamara MD [address] [place] [phone] [email or web address] Primary Oncologist Medical Oncology 08/16/20 documented as of this encounter Additional Source Comments The information contained in this document represents components of the legal health record. It is not the complete legal health record.[facility]
--- OUTSIDE RECORDS SUMMARY | 2025-10-12 09:01 | XMS_ITS | Encounter Summary ---
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 Not on file Not on f ile documented as of this encounter Plan of Treatment Upcoming Encounters Date Type Department Care Team (Late st Contact Info) Description 11/25/2025 9:00 AM EST Office Visit [facility] Hematology Oncology Clinic at [address] [address] Schuyler Kamara MD [address] [place] [phone] [email or web address] documented as of this encounter Visit Diagnoses Not on filedocumented in this encounter Additional Health Concerns Infection Onset Date Last Indicated Resolved Time CoV-Risk 10/04/2024 10/04/2024 10/15/2024 1:24 AM EST documented as of this encounter Care Teams Comber Setter Relationship Specialty Start Date End Date Tomeka Sanon MD [address] [place] [phone] [email or web address] PCP - General Family Medicine 10/03/19 Schuyler Kamara MD [address] [place] [phone] [email or web address] Primary Oncologist Medical Oncology 08/16/20 documented as of this encounter Additional Source Comments The information contained in this document represents components of the legal health record. It is not the complete legal health record.[facility]
--- OUTSIDE RECORDS SUMMARY | 2025-10-12 09:01 | XMS_ITS | Encounter Summary ---
Author Organization [facility] Address [facility] [address] [facility] [address] [place] [address] Phone Care Team Providers Care Property Controller Name Role Phone Tomeka Saonn MD Primary Care Prov ider Schuyler Kamara MD Unavailable Encounter Details Date Type Department Care Team (Late st Contact Info) Description 02/02/2022 Transcribe Orders [facility] Physical Therapy [facility] [address] [place] [phone] Tomeka Sanon MD [address] [place] [phone] 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 [place] [facility] at [facility] [address] [place] [address] Schuyler Kamara MD [address] [place] [phone] [email or web address] documented as of this encounter Visit Diagnoses Not on filedocumented in this encounter Additional Health Concerns Infection Onset Date Last Indicated Resolved Time CoV-Risk 10/04/2024 10/04/2024 10/15/2024 1:24 AM EST documented as of this encounter Care Teams Property Controller Relationship Specialty Start Date End Date Tomeka Sanon MD [address] [place] [phone] [email or web address] PCP - General Family Medicine 10/03/19 Schuyler Kamara MD [address] [place] [phone] [email or web address] Primary Oncologist Medical Oncology 08/16/20 documented as of this encounter Additional Source Comments The information contained in this document represents components of the legal health record. It is not the complete legal health record.[facility]
--- OUTSIDE RECORDS SUMMARY | 2025-10-12 09:01 | XMS_ITS | Encounter Summary ---
Author Organization [facility] Address [address] [facility] [address] [place] [address] Phone Care Team Providers Care General Ledger Accountant Name Role Phone Tomeka Sanon MD Primary Care Prov ider Schuyler Kamara MD Unavailable [phone] Encounter Details Date Type Department Care Team (Latest Contact Info) Description 04/27/2025 Transcribe Orders Virtual Department [address] [place] [address] Autumn Vásquez, CORA [address] [address] Dysphagia, unspecified type (Primary Dx) Social History Tobacco [...] Job Start Date Job End Date 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 Not on file Not on file Not on f ile documented as of this encounter Plan of Treatment Upcoming Encounters Date Type Department Care Team (Late st Contact Info) Description 11/25/2025 9:00 AM EST Office Visit [facility] [place] [facility] at [address] [address] Schuyler Kamara MD [address] [place] [phone] [email or web address] documented as of this encounter Results * FL (Speech) Video Swallow Study (06/16/2025 11:30 AM EDT) Anatomical Region Laterality Modality Radio Fluoroscop y 06/16/2025 12:1 3 PM EDT Impressions 06/16/2025 12:39 PM EDT No felisa aspiration was observed during this examination. Please refer to the clinical notes by the Speech Pathologist for detailed description of the Modified Swallow findings. FLUOROSCOPY TIME: 1 minute 32 seconds NUMBER OF IMAGES: [id number] The examination was performed by RRARobert. Dr. Rich Mora was immediately available for portions of the procedure as needed. ATTESTATION: I, Rich Mora as teaching physician, have reviewed the images for this case and if necessary edited the report originally created by Robert Verdugo. Narrative 06/16/2025 12:39 PM EDT FL MODIFIED BARIUM SWALLOW HISTORY:Dysphagia. COMPARISON:CT chest 08/04/2024. TECHNIQUE: Fluoroscopic assistance was provided for the speech pathologist during video swallow. The patient was observed in the lateral projection while being fed various consistencies of barium (thin liquids, applesauce, pudding and cracker). FINDINGS: The oral and pharyngeal stages of swallowing will be reported separately by the Department of Speech and Language Pathology. No felisa aspiration, laryngeal penetration, nasopharyngeal reflux or cricopharyngeal achalasia demonstrated during this examination. Procedure Note Rich Mora MD - 06/16/2025 FL MODIFIED BARIUM SWALLOW HISTORY:Dysphagia. COMPARISON:CT chest 08/04/2024. TECHNIQUE: Fluoroscopic assistance was provided for the speech pathologist duringvideo swallow. The patient was observed in the lateral projection whilebeing fed various consistencies of barium (thin liquids, applesauce,pudding and cracker). FINDINGS: The oral and pharyngeal stages of swallowing will be reported separatelyby the Department of Speech and Language Pathology. No felisa aspiration, laryngeal penetration, nasopharyngeal reflux orcricopharyngeal achalasia demonstrated during this examination. IMPRESSION: No felisa aspiration was observed during this examination. Please refer to the clinical notes by the Speech Pathologist for detaileddescription of the Modified Swallow findings. FLUOROSCOPY TIME: 1 minute 32 seconds NUMBER OF IMAGES: [id number] The examination was performed by Robert ADORNO. Dr. Rich Mora wasimmediately available for portions of the procedure as needed. ATTESTATION: I, Rich Mora as teaching physician, have reviewed theimages for this case and if necessary edited the report originally createdby Robert Verdugo. Autumn Vásquez GROUNDS PERSON IMG FL EXAMS Lupe l Result documented in this encounter Visit Diagnoses Diagnosis Dysphagia, unspecified type- Primary Dysphagia, unspecified type- Primary documented in this encounter Care Teams General Ledger Accountant Relationship Specialty Start Date End Date Tomeka Sanon MD [address] [place] [phone] [email or web address] PCP - General Family Medicine 10/03/19 Schuyler Kamara MD [address] [place] [address] [email or web address] Primary Oncologist Medical Oncology 08/16/20 documented as of this encounter Additional Source Comments The information contained in this document represents components of the legal health record. It is not the complete legal health record.[facility]
--- OUTSIDE RECORDS SUMMARY | 2025-10-12 09:01 | XMS_ITS | Encounter Summary ---
Author Organization Miguelina Balderas [facility] Address [address] [place] [address] Care Team Providers Care Nurse Office Name Role Phone Rich Sommer MD Primary Care Provider [phone] Rich Sommer MD Primary Care Provider + [phone] Rich Sommer MD Unavailable [phone] Encounter Details Date Type Department Care Team ([facility] st Contact Info) Description 05/11/2010 Clinical Conversion Encounter [facility] Endocrinology Care [facility] Endocrinology [address] [place] [address] Kyree Howell MD [address] [place] [address] Social History Tobacco Use Types Packs/Day Years Used Date Smoking Tobacco: Never Assessed Comments Unknown Sex and Gender Information Value Date Recorded Sex Assigned at Not on file Legal Sex Female 10:15 PM EST Gender Identity Not on file Sexual Orientation Not on file documented as of this encounter Progress Notes * Kyree Howell MD - 06/29/2015 11:46 AM EDT Secure Message Detail To: Efren Rodriguez MD - [email or web address] Subject: [facility] [place] Endocrinology Office Visit 05/11/2010 10:46 AM Message: Patient Name: Lucy Yeung Date of : 1950 Appointment Type: Endocrinology Office Visit Reason for Visit: New Patient Consultation Chief Complaint hypothyroidism History from: patient Referring Physician/PCP: Efren Rodriguez MD Patient Safety Level: Level 1 Vital Signs Height: 63.25 in Weight: 187.9 lbs BMI: 33.14 T: 97.9 deg F oral BP: 146/90 Pulse: 81 Vitals Entered by: pat Current Medications: SYNTHROID 25 MCG TABS (LEVOTHYROXINE SODIUM) one tab daily Current Allergies (reviewed today): ! SULFA ! LILACS Given updated Medication List: patient patient declined copy of medication list Today's Data Prev. Today Diff. Weight: 187.9 BMI: 33.14 Glucose: HbA1c: Glucose Mon: Chief Complaint: hypothyroidism HISTORY OF PRESENT ILLNESS: Thyroid Clinic- Dr. Kyree Howell DATE: May 11, 2010 Primary Care Physician: Efren Rodriguez MD CC: requested by pcp for consultation of abnormal thyroid function HPI: 59 yo f was dx'ed iwth Graves' disease in and re'd CAREY ablation in . She became hypothryodism immediately. she was maintained on LT4 150mcg for many years (almost 20yrs) until 7 yrs ago when her LT4 decreased to 125mcg. She has feeling miserable since the change - fatigue, exhaution, hair loss, wt gain, difficulty concentrating, memory loss and depression. she says she has not been functioning normally. Heat or cold intolerance: no Head and neck symptoms: no neck pain, food and pill dysphagia, odynophagia, or hoarseness denies neck pressure-like sxs Energy: very low Weight changes: gained 40lbs Tachycarida or palpitations: no Tremor: no Hair and skin normal Diarrhea and constipation: no Recent iodine load: no Menses: postmenopausal x 14 yrs. H/o H&N radiation: no Denies taking lithium or amiodarone or any OTC meds. Denies f/c/sob, and the remainder of ROS for EYE, ENT, , heme/onc, neuro and psych is negative. PMH: Graves' disease s/p ablation hypothryodism asthma depression s/p choleccy SH: A1, lives with FH: no h/o thyroid dz TOBACCO/ETOH: no ALLERGIES: sulfa MEDICATIONS: synthroid 125mcg PE: see above GEN: well developed and well nourished female in no apparent distress SKIN: warm, dry, no bruising, no striae,normal texture HENT: no lid lag, stare, or proptosis; extraocular movement intact, no periorbital edema; pupils equal, round and reactive to light. Oral pharyngeal mucosa clear, no pharyngeal erythema Palpable thyroid: 20 gm. Smooth, firm, micronodular and mobile. No distinct masses felt. No adenopathy in posterior cervical, anterior cervical, supra or infra-clavicular regions Lungs: clear to auscultation CV: regular rate and rhythm, no tachycardia Abd: + bowel sound, soft, non-tender EXT: no clubbing, cyanosis or edema, + mild dayana-osteal tenderness NERUO: Alert and oriented. No tremor. Reflexes: 2+ bilateral and no delay. Walks without assistance, no abnormal gait. LABORATORY TESTS: TSH - 0.1- 0.4 (since ) 02/21- TSH 0.006 , FT4 1.5, T3 188 03/24- TSH 0.03, FT4 1.05, T3 128 ASSESSMENT: This patient with h/o Graves' disease s/p ablation is on TH replacement. She has multiple non-specific sxs which she attributes to hypothyroidism. I d/w her and her at length. Her sxs can be from many other reasons than just hypothyroidism. As a matter of fact, I reviewed her TFTs since 2007 and her TSH has been low or low -normal. Most recent TFTs indicate suppressed TSH to <0.1 with elevated T3. Her sxs could be contributed by hyperthyroidism. Pt is very adamant that she be put back on LT4 150mcg from 125mcg. I offer to obtain TFTs and TBG first. I advise AGAINST increasing TH replacement, but rather lowering the dose to 112 or 100mcg. I d/w her and her about my concernfor her cardiac and bone adverse effects of over replacement of TH. But she is upset and declined further testing. she says she will find another doctor who will put her back on 150mcg of LT4. return to PCP. Plan signed by Kyree Howell MD 05/11/2010 12:01PM documented in this encounter Plan of Treatment Not on file documented as of this encounter Visit Diagnoses Not on filedocumented in this encounter Care Teams Nurse Office Relationship Specialty Start Date End Date Rich Sommer MD [address] [place] [address] PCP - General 10/27/13 08/23/14 Rich Sommer MD [address] [place] [address] PCP - General 08/24/14 Rich Sommer MD [address] [place] [address] 08/24/14 documented as of this encounter
--- OUTSIDE RECORDS SUMMARY | 2025-10-12 09:01 | XMS_ITS ---
Author Organization [facility] Address [address] [place] [address] Phone Care Team Providers Care Stencil Maker Name Role Phone Tomeka Sanon MD Primary Care Prov ider Schuyler Kamara MD Unavailable [phone] Active Problems Patient Care Coordination No te [...] would not be expected to cause dyspnea, dyaana-oral numbness, delayed gastric emptying, etc. She is [...] AM EDT): Consult with Dr. Prieto from [facility] appreciated as above. Treatment for lymphocytic colitis as [...] 10/01/2019:Stage IB(cT2, cN0(sn), cM0, G2, ER: Positive, WA: Positive, HER2: Positive) - Signed by Schuyler [...] we wrote her for magic mouthwash to steel pickler from the pharmacy if her symptoms worsen [...] and sentinel lymph node biopsy for an ER/WA/HER2 positive, T2N0 malignancy. She is doing well [...] some vaginal bleeding and any biopsy by novelty maker should be done and this issue resolved prior to starting an anti-estrogen medication. I will see her back in three months. Assessment & Plan (09/03/2019 9:08 AM EST): The patient is status post left breast ultrasound guided core biopsy with a diagnosis of invasive lobular carcinoma, grade 2, ER/WA positive, HER2 positive. She presents with questions [...] carcinoma of the left breast, grade 2, ER/WA positive. We had a lengthy conversation with [...] Lorazepam available at home dose if needed. Current Treatment and Therapy Plans ACCESS AND FLUSH ([facility])* Plan Start Date:10/29/2019 Plan Provider:Schuyler Kamara MD Linked Problems Invasive lobular carcinoma o f breast in female Treatment Medications No medications scheduled. Past Treatment and Therapy Plans TREATMENT PLAN Plan Name Start Date Discontinue Date Treatment Medications Discontinue Reason Plan Provider Cycles PERTUZUM AB/TRAST UZUMAB/D OCETAXEL /CARBOPL ATIN 10/29/2019 01/26/2021 CARBOplatin (PARAPLATIN) IVPB (by AUC) 270 mLDOCEtaxel (TAXOTERE) IVPB in 500 mL (Doses GREATER than 199 mg)pertuzumab (PERJETA) IVPBtrastuzumab (HERCEPTIN) IVPBtrastuzumab-[facility] (OGIVRI) IVPB Bag a. Therapy Complete Schuyler Kamara MD 18 of 18 cycles started Resolved Problems Problem Noted Date Diagnosed Date Resolved Date Breast cancer in female 06/03/202010/16
--- OUTSIDE RECORDS SUMMARY | 2025-10-12 09:01 | XMS_ITS | Clinical Summary ---
Author Organization [facility] Prior to 03/14/[address] [place] [address] Care Team Providers Care Business Process Representative Name Role Phone Unavailable Primary Care Provider [...] 11/27/2017 11/27/2007, 10/15/1997 COVID-19 Vaccine ( season) 2025 01/05/2022, 08/08/2021, 12/18/2020 Influenza Vaccine (#1) 2025 3, 07/06/2022, 08/08/2021, Additional history exists Pneumococcal Vaccine Completed 09/22/2021, 09/10/2017, 10/13/2013 RSV Adult > 60+ Yrs or Completed 11/04/2023 Hepatitis B Vaccines Aged Out No long er eligible based on patient's age to complete this topic RSV Ped < 20 months Aged Out No longe r eligible based on patient's age to complete this topic Guarantor Name Account Type Relation to Patient Date of Phone Billing Address Isabell Yeung Personal/Famil y Self [address] [place] [phone]
--- OUTSIDE RECORDS SUMMARY | 2025-10-12 09:01 | XMS_ITS | Clinical Summary ---
Author Organization [facility] Address [address] [place] [address] Phone Care Team Providers Care Courtesy Driver Name Role Phone Unavailable Primary Care Provider [...] (10 mg total) by mouth. Active Immunizations Immunization Administration Dates Next Due [facility]/[employer] SARS-CoV-2 COVID -19, vector-nr, rS-Ad26, preservative free [...] on file Sexual Orientation Not on file Last Filed Vital Signs [...] Breast Cancer Screening 1950 Colorectal Cancer Screening: Colonoscopy 1950 Zoster Vaccines (1 of 2) 1971 Falls Risk Assessment 07/24/2024 Hepatitis C Screening [...] patient's age to complete this topic Insurance [facility] MEDICARE
--- OUTSIDE RECORDS SUMMARY | 2025-10-12 09:01 | XMS_ITS | Encounter Summary ---
Author Organization [facility] Address [address] [place] [address] Phone Care Team Providers Care Voice Intercept Technician Name Role Phone Tomeka Sanon MD Primary Care Prov ider Tomeka Sanon MD Primary Care Prov ider Schuyler Kamara MD Unavailable [phone] Reason for Referral * MRI/CAT Scan - Closed Specialty Diagnoses / Procedures Referred By Rubi cardenas Referred To Contact Radiology Diagnoses Weakness Paresthesias Gait dyspraxia Nonintractable headache, unspecified chronicity pattern, unspecified headache type Procedures MRI Brain Autumn Vásquez NP [address] [address] Phone: tel: fax: Referral ID Status Reason Start Date Expiration Date Visits Re quested Visits Authorized [id number] Closed 07/31/2019 07/30/2020 1 1 Encounter Details Date Type Department Care Team (Latest Contact Info) Description 07/31/2019 Transcribe Orders Virtual Department 30 [place] [address] Autumn Vásquez NP [address] [address] Weakness (Primary Dx); Paresthesias; Gait dyspraxia; Nonintractable headache, unspecified chronicity pattern, unspecified headache type Social History Tobacco Use Types Packs/Day Years [...] Description 11/25/2025 9:00 AM EST Office Visit [facility] [place] [facility] at [address] [address] Schuyler Kamara MD [address] [place] [address] [email or web address] documented as of this encounter Results * MRI BRAIN WITH AND WITHOUT CONTRAST (08/12/2019 8:01 AM EDT) Anatomical Region Laterality Modality Head Magnetic Resonan ce 08/12/2019 4:37 PM EDT Impressions 08/12/2019 4:47 PM EDT 1. Scattered nonspecific white matter lesions. Most likely secondary to small vessel ischemic changes. They are not typical for multiple sclerosis. 2. Otherwise, unremarkable study. POS - [id number] IMPRESSION: POS [id number] Narrative 08/12/2019 4:47 PM EDT EXAM: MRI BRAIN WITHOUT AND WITH INTRAVENOUS CONTRAST COMPARISON: None History: Patient states leg pain, numbness and tingling in the arms and legs. Off balance. Dragging leg, difficulty walking. Possible multiple sclerosis. symptoms for 10 years, with increase in symptoms over past one year. TECHNIQUE: Exam performed on a 1.5 Ellie high-field MRI scanner. Multiple sequences were obtained prior to and following administration of intravenous contrast. FINDINGS: Ventricles, Sulci and extra axial spaces: Ventricles, sulci, and cisterns are age-appropriate, without evidence of hydrocephalus. Brain Parenchyma: No restricted diffusion, hemorrhage, mass or shift of midline structures seen. Multiple small T2/FLAIR hyperintense lesions scattered throughout the white matter of the bilateral brain parenchyma; none of them enhance following administration of intravenous contrast. No abnormal parenchymal enhancement following administration of intravenous contrast. Vascular: The major intracranial flow voids appear intact. Skull Base: Sellar/parasellar structures, pineal gland region and craniovertebral junction are unremarkable. Orbits: The orbits are unremarkable. Paranasal sinuses: No significant inflammatory changes present in the paranasal sinuses or left mastoid air cells. Minimal right mastoid effusion. Bones and soft tissues: Grossly unremarkable. Procedure Note Petar Curiel MD - 08/12/2019 EXAM: MRI BRAIN WITHOUT AND WITH INTRAVENOUS CONTRAST COMPARISON: None History: Patient states leg pain, numbness and tingling in the arms andlegs. Off balance. Dragging leg, difficulty walking. Possible multiplesclerosis. symptoms for 10 years, with increase in symptoms over past one year. TECHNIQUE: Exam performed on a 1.5 Ellie high-field MRI scanner. Multiplesequences were obtained prior to and following administration ofintravenous contrast. FINDINGS: Ventricles, Sulci and extra axial spaces: Ventricles, sulci, and cisternsare age-appropriate, without evidence of hydrocephalus. Brain Parenchyma: No restricted diffusion, hemorrhage, mass or shift ofmidline structures seen. Multiple small T2/FLAIR hyperintense lesionsscattered throughout the white matter of the bilateral brain parenchyma;none of them enhance following administration of intravenous contrast. Noabnormal parenchymal enhancement following administration of intravenouscontrast. Vascular: The major intracranial flow voids appear intact. Skull Base: Sellar/parasellar structures, pineal gland region andcraniovertebral junction are unremarkable. Orbits: The orbits are unremarkable. Paranasal sinuses: No significant inflammatory changes present in theparanasal sinuses or left mastoid air cells. Minimal right mastoideffusion. Bones and soft tissues: Grossly unremarkable. IMPRESSION: 1. Scattered nonspecific white matter lesions. Most likely secondary tosmall vessel ischemic changes. They are not typical for multiplesclerosis. 2. Otherwise, unremarkable study. POS - [id number] IMPRESSION: POS [id number] Autumn Vásquez ASBESTOS SURVEYOR IMG MR HEAD/NECK Fin al Result documented in this encounter Visit Diagnoses Diagnosis Weakness- Primary Other malaise and fatigue Paresthesias Disturbance of skin sensation Gait dyspraxia Nonintractable headache, unspecified chronicity pattern, unspecified headache type Weakness Other malaise and fatigue Paresthesias Disturbance of skin sensation Gait dyspraxia Nonintractable headache, unspecified chronicity pattern, unspecified headache type documented in this encounter Additional Health Concerns [...] documented as of this encounter Care Teams Voice Intercept Technician Relationship Specialty Start Date End Date Tomeka Sanon MD .LYFE Kitchen PCP - General 07/31/17 Tomeka Sanon MD [address] [place] [phone] [email or web address] PCP - General Family Medicine 10/03/19 Schuyler Kamara MD [address] [place] [phone] [email or web address] Primary Oncologist Medical Oncology 08/16/20 documented as of this encounter Additional Source Comments The information contained in this document represents components of the legal health record. It is not the complete legal health record.[facility]
--- OUTSIDE RECORDS SUMMARY | 2025-10-12 09:01 | XMS_ITS | Encounter Summary ---
Author Organization Miguelina Balderas [facility] Address [address] [place] [address] Care Team Providers Care Hydro Station Operator Name Role Phone Rich Sommer MD Primary Care Provider [phone] Rich Sommer MD Primary Care Provider [phone] Rich Sommer MD Unavailable [phone] Encounter Details Date Type Department Care Team (Late st Contact Info) Description 10/25/2013 Clinical Conversion Encounter GENERAL CONVERSION Sherman Gerardo MD [address] [place] [address] Social History Tobacco Use Types Packs/Day Years Used Date Smoking Tobacco: Never Assessed Comments Unknown Sex and Gender Information Value Date Recorded Sex Assigned at Not on file Legal Sex Female 10:15 PM EST Gender Identity Not on file Sexual Orientation Not on file documented as of this encounter ED Notes * Sherman Gerardo MD - 05/08/2015 12:33 PM EDT [facility] Name: CHRISTINA YEUNG [facility] Rojelio Graff # [id number] : [birth year] Age: 63 Sex: F EMERGENCY REPORT DEP ER Location: ER Date: 10/25/13 Time: 0950 cc: PCP Efren Rodriguez M.D. DATE OF SERVICE: 10/25/2013 HISTORY OF PRESENT ILLNESS: The patient is a 63-year-old female who comes in by a private car with chief complaint of head, neck, and back pain. The patient was in normal state of health until last night when she slipped and fell on the ice. She fell backwards, striking the back of her head and neck, resulting in severe headache. She states she was dazed for about a second. She had some dizziness last night, which is somewhat better, although she continues to have severe headache. She had some nausea yesterday, although that has resolved. She has neck pain and upper thoracic back pain. She has no chest pain. No extremity pain, numbness, or weakness. She is on no anticoagulants. No vision change. No nasal pain. No malocclusion. No dental fracture. PAST MEDICAL HISTORY: Significant for hypothyroidism. CURRENT MEDICATIONS: Synthroid and herbal medicines. ALLERGIES: Sulfa. 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 She is . REVIEW OF SYSTEMS: Constitutional: No malaise. Skin: No lacerations. Ophthalmology: No vision change or photophobia. ENT: No nasal pain. No malocclusion. No dental pressure. Cardiac: No chest pain or dizziness. Pulmonary: No shortness of breath. GI: As described above. No vomiting or abdominal pain. : No flank pain. Musculoskeletal: As described above. Heme: No hematuria, melena, or hematochezia. Neurologic: No loss of consciousness. No focal numbness or weakness. No vertigo. No trouble speaking or swallowing. PHYSICAL EXAMINATION: General Appearance: Alert, well-nourished female. Vital signs: Blood pressure 134/84, heart rate 78, respirations 18, temperature is 98.6 degrees, and room air saturation is 98%. Skin: Warm and dry with adequate turgor. Head: She has some tenderness over the occipital scalp. No crepitation, swelling, step-off, lacerations, or abrasions. Eyes: Normal orbits. Normal lids and conjunctivae. No papilledema. No retinal hemorrhages. No hyphema. Extraocular movements are intact. No visual field cuts. ENT: No nasal tenderness, crepitus, or deformity. No septal hematoma. No hemotympanum. No dental fracture or malocclusion. No chest wall tenderness. Abdomen: Soft and nontender. : No CVA tenderness. Musculoskeletal: She has some tenderness over the upper cervical spine, as well as over the mid-cervical spine without crepitation, swelling, or [facility] Name: CHRISTINA YEUNG [facility] MR # [id number] EMERGENCY REPORT continued Date: 10/25/13 step-off. She has some tenderness over the [id number] thoracic spine without crepitation, swelling, step-off, laceration, abrasion, or ecchymosis. Neurologic: Alert and oriented x3. Cranial nerve, motor, sensory, and cerebellar function are all intact. Speech is fluent. Reflexes are equal and symmetric. No focal deficits. RADIOLOGY DATA: Head CT, interpreted by Dr. Hopper from radiology, shows no acute intracranial abnormalities and no fracture. Cervical spine CAT scan obtained in light of her tenderness and short neck, DJD was noted without acute fracture or dislocation. The thoracic spine x-rays are obtained and interpreted by Dr. Venegas as no evidence of acute fracture or acute abnormality. TREATMENT: The patient had received Zofran 4 mg ODT and oxycodone 5 mg p.o. On reassessment, she has some improvement in discomfort. She remains with no focal deficits and no new complaints. She will be discharged with SuperDOC instructions, ibuprofen 800 mg p.o. t.i.d. with ulcer precautions, oxycodone 5 mg tablets 1-2 every 6 hours if needed for pain. No driving, operating machinery, or climbing heights. Zofran if needed for nausea. A work note is given, and she can follow up through her primary. DIAGNOSES: 1. Acute minor head injury. 2. Acute scalp contusion. 3. Acute cervical strain. 4. Acute thoracic contusion. She had been placed in a hard cervical collar at triage, which had been removed and she has full range of motion of neck without any increasing pain or paresthesia. [id number] /[id number] TD: 7:23 A KIMBERLY VILLA Dictated by: Sherman Gerardo M.D. ELECTRONICALLY SIGNED 10/28/13 1418 TO: //ivnm// //add1// //add2// //add3// Report #: [id number] documented in this encounter Plan of Treatment Not on file documented as of this encounter Procedures Procedure Name Priority Date/Time Associated Diagnosis Comments XR SPINE THORACIC 3 VW Routine 10/25/2013 11:[address] CERVICAL SPINE WO CONTRAST Routine 10/25/2013 11:[address] HEAD WO CONTRAST Routine 10/25/2013 1 1:09 AM EST documented in this encounter Results * XR Spine Thoracic 3 Vw (10/25/2013 11:42 AM EST) Anatomical Region Laterality Modality Thoracic Spine Radiographic Lucero ging 10/25/2013 11:4 2 AM EST Narrative 10/25/2013 11:42 AM EST Clinical history: Trauma. Upper back pain. Thoracic spine: AP and lateral views. No previous images of the thoracic spine. There is no evidence of a paraspinal mass. Vertebral body height is normally maintained without evidence of compression fracture. The pedicles all appear normal. Only age-appropriate degenerative changes are seen. Surgical clips are present in the right upper quadrant. Impression 1. No evidence of acute fracture. Procedure Note Logan Venegas MD - 05/25/2015 Clinical history: Trauma. Upper back pain. Thoracic spine: AP and lateral views. No previous images of the thoracic spine. There is no evidence of a paraspinal mass. Vertebral body height is normally maintained without evidence of compression fracture. The pedicles all appear normal. Only age-appropriate degenerative changes are seen. Surgical clips are present in the right upper quadrant. Impression 1. No evidence of acute fracture. Sherman Gerardo MD [facility] ORDER LISA Final Result * CT Cervical Spine WO Contrast (10/25/2013 11:10 AM EST) Anatomical Region Laterality Modality Cervical Spine Computed Tomogra phy 10/25/2013 11:1 0 AM EST Narrative 10/25/2013 11:10 AM EST Exam: Cervical spine -High-resolution CT scan with sagittal and coronal reconstructions History: Neck pain Technique: Axial thin section images were obtained through the cervical spine with sagittal and coronal reconstructions performed and reviewed at a separate workstation. Comparison: No Comparisons. Findings: There is diffuse degenerative disc and facet joint disease throughout the cervical spine. Otherwise, there is normal anatomic alignment of the cervical spine with preservation of vertebral body height. No fractures are seen. The facet joints and neural lamina are intact. The prevertebral soft tissues are unremarkable. No fractures are seen. The craniocervical junction is normal. Impression: DJD as above. Otherwise normal exam. No evidence of fracture or dislocation. Result Code: not applicable Procedure Note Christie Quick MD - 05/25/2015 Exam: Cervical spine -High-resolution CT scan with sagittal and coronal reconstructions History: Neck pain Technique: Axial thin section images were obtained through the cervical spine with sagittal and coronal reconstructions performedand reviewed at a separate workstation. Comparison: No Comparisons. Findings: There is diffuse degenerative disc and facet joint diseasethroughout the cervical spine. Otherwise, there is normal anatomic alignmentof the cervical spine with preservation of vertebral body height. No fractures are seen. The facet joints and neural lamina are intact. The prevertebral soft tissues are unremarkable. No fractures are seen. The craniocervical junction is normal. Impression: DJD as above. Otherwise normal exam. No evidence of fracture or dislocation. Result Code: not applicable Sherman Gerardo MD [facility] CT ORDERABLES Final Resu lt * CT Head WO Contrast (10/25/2013 11:09 AM EST) Anatomical Region Laterality Modality Head Computed Tomogra phy 10/25/2013 11:0 9 AM EST Narrative 10/25/2013 11:09 AM EST Exam: CT scan of the head without contrast History: Head trauma status post fall with headache Comparisons: No comparison studies Technique: Standard departmental protocol without intravenous contrast. To my knowledge the head CT was performed within 24 hours of the patient's arrival. Findings: Intracranial structures: The ventricles, cisterns, and sulci are normal. There is no evidence of intracranial mass, hemorrhage, extra-axial collection, or acute large vessel infarct. Skull and sinuses: The visualized portions of the paranasal sinuses and mastoid cells appear unremarkable. There is no evidence of skull fracture. Impression: No acute intracranial abnormalities are detected. Result Code: not applicable Procedure Note Christie Quick MD - 05/25/2015 Exam: CT scan of the head without contrast History: Head trauma status post fall with headache Comparisons: No comparison studies Technique: Standard departmental protocol without intravenous contrast. To my knowledge the head CT was performed within 24 hours of the patient's arrival. Findings: Intracranial structures: The ventricles, cisterns, and sulci are normal. There is noevidence of intracranial mass, hemorrhage, extra-axial collection, or acute large vessel infarct. Skull and sinuses: The visualized portions of the paranasal sinuses and mastoid cells appear unremarkable. There is no evidence of skull fracture. Impression: No acute intracranial abnormalities are detected. Result Code: not applicable Sheramn HARRIS CT ORDERABLES Final Resu lt documented in this encounter Visit Diagnoses Not on filedocumented in this encounter Care Teams Hydro Station Operator Relationship Specialty Start Date End Date Rich Sommer MD [address] [place] [phone] PCP - General 10/27/13 08/23/14 Rich Sommer MD [address] [place] [address] PCP - General 08/24/14 Rich Sommer MD [address] [place] [address] 08/24/14 documented as of this encounter
--- OUTSIDE RECORDS SUMMARY | 2025-10-12 09:01 | XMS_ITS | Encounter Summary ---
Author Organization 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 on file Not on file Not on f ile documented as of this encounter Plan of Treatment Upcoming Encounters Date Type Department Care Team (Late st Contact Info) Description 11/25/2025 9:00 AM EST Office Visit [facility] at [facility] [address] [place] [address] Schuyler Kamara MD [address] [place] [phone] [email or web address] documented as of this encounter Visit Diagnoses Not on filedocumented in this encounter Additional Health Concerns Infection Onset Date Last Indicated Resolved Time CoV-Risk 10/04/2024 10/04/2024 10/15/2024 1:24 AM EST documented as of this encounter Care Teams Vending Machine Mechanic Relationship Specialty Start Date End Date Tomeka Sanon MD [address] [place] [phone] [email or web address] PCP - General Family Medicine 10/03/19 Schuyler Kamara MD [address] [place] [phone] [email or web address] Primary Oncologist Medical Oncology 08/16/20 documented as of this encounter Additional Source Comments The information contained in this document represents components of the legal health record. It is not the complete legal health record.[facility]
--- OUTSIDE RECORDS SUMMARY | 2025-10-12 09:01 | XMS_ITS | Encounter Summary ---
Author Organization [facility] Address [address] [place] [address] Phone Care Team Providers Care Fermenting Cellars Receiver Name Role Phone Tomeka Sanon MD Primary Care Prov ider Tomeka Sanon MD Primary Care Prov ider Schuyler Kamara MD Unavailable [phone] Encounter Details Date Type Department Care Team (Latest Contact Info) Description 07/30/2019 Transcribe Orders [facility] [address] [place] [address] Maia Staples MD [address] [place] [address] [address] [place] [address] Other specified hypothyroidism (Primary Dx); Fatigue, unspecified type; Pain Social History Tobacco Use Types Packs/Day Years [...] Description 11/25/2025 9:00 AM EST Office Visit [facility] [place] [facility] at [address] [address] Schuyler Kamara MD [address] [place] [phone] [email or web address] documented as of this encounter Results * Basic metabolic panel (07/30/2019 11:35 AM EDT) SODIUM 142 133 - 146 mmol/L [facility] CHLORIDE 103 96 - 108 mmol/L [facility] POTASSIUM 4.3 3.3 - 5.1 mmol/L [facility] CO2 25 21 - 35 mmol/L [facility] BUN 13 6 - 19 mg/dL [facility] CREATININE 0.90 0.5 - 1.5 mg/dL [facility] GLUCOSE 91 70 - 99 mg/dL [facility] CALCIUM 9.6 8.4 - 10.3 mg/dL [facility] EGFR 66 >59 mL/min/1.7 3m2 [facility] Comment:If patient is black, multiply result by 1.159. Estimated glomerular filtration rate calculated using the CKD-EPI equation. ANION GAP 18 10 - 20 mmol/L [facility] Blood 07/30/2019 11:3 5 AM EDT 07/30/2019 11:41 AM EDT us Maia Staples MD LAB BLOOD BKR ORDERABLE S Final Result [address] [address] documented in this encounter Visit Diagnoses Diagnosis Other specified hypothyroidism- Primary Fatigue, unspecified type Pain Generalized pain documented in this encounter Additional Health Concerns [...] documented as of this encounter Care Teams Fermenting Cellars Receiver Relationship Specialty Start Date End Date Tomeka Sanon MD PCP - General 07/31/17 Tomeka Sanon MD [address] [place] [phone] [email or web address] PCP - General Family Medicine 10/03/19 Schuyler Kamara MD [address] [place] [address] Primary Oncologist Medical Oncology 08/16/20 documented as of this encounter Additional Source Comments The information contained in this document represents components of the legal health record. It is not the complete legal health record.[facility]
--- OUTSIDE RECORDS SUMMARY | 2025-10-12 09:01 | XMS_ITS | Encounter Summary ---
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 Not on file Not on f ile documented as of this encounter Plan of Treatment Upcoming Encounters Date Type Department Care Team (Late st Contact Info) Description 11/25/2025 9:00 AM EST Office Visit [facility] at [address] [address] Schuyler Kamara MD [address] [place] [phone] [email or web address] documented as of this encounter Visit Diagnoses Not on filedocumented in this encounter Additional Health Concerns Infection Onset Date Last Indicated Resolved Time CoV-Risk 10/04/2024 10/04/2024 10/15/2024 1:24 AM EST documented as of this encounter Care Teams Inspector And Adjuster Golf Club Head Relationship Specialty Start Date End Date Tomeka Sanon MD [address] [place] [phone] [email or web address] PCP - General Family Medicine 10/03/19 Schuyler Kamara MD [address] [place] [phone] [email or web address] Primary Oncologist Medical Oncology 08/16/20 documented as of this encounter Additional Source Comments The information contained in this document represents components of the legal health record. It is not the complete legal health record.[facility]
--- OUTSIDE RECORDS SUMMARY | 2025-10-12 09:01 | XMS_ITS | Encounter Summary ---
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 Not on file Not on file Not on f ile documented as of this encounter Plan of Treatment Upcoming Encounters Date Type Department Care Team (Late st Contact Info) Description 11/25/2025 9:00 AM EST Office Visit [facility] [place] [facility] at [facility] [address] [place] [address] Schuyler Kamara MD [address] [place] [address] [email or web address] documented as of this encounter Visit Diagnoses Not on filedocumented in this encounter Additional Health Concerns Infection Onset Date Last Indicated Resolved Time CoV-Risk 10/04/2024 10/04/2024 10/15/2024 1:24 AM EST documented as of this encounter Care Teams Cnc Grinder Relationship Specialty Start Date End Date Tomeka Sanon MD [address] [place] [phone] [email or web address] PCP - General Family Medicine 10/03/19 Schuyler Kamara MD [address] [place] [phone] [email or web address] Primary Oncologist Medical Oncology 08/16/20 documented as of this encounter Additional Source Comments The information contained in this document represents components of the legal health record. It is not the complete legal health record.[facility]
--- OUTSIDE RECORDS SUMMARY | 2025-10-12 09:01 | XMS_ITS | Encounter Summary ---
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 Not on file Not on f ile documented as of this encounter Plan of Treatment Upcoming Encounters Date Type Department Care Team (Late st Contact Info) Description 11/25/2025 9:00 AM EST Office Visit [facility] Hematology Oncology Clinic at [address] [address] Schuyler Kamara MD [address] [place] [address] [email or web address] documented as of this encounter Visit Diagnoses Not on filedocumented in this encounter Additional Health Concerns Infection Onset Date Last Indicated Resolved Time CoV-Risk 10/04/2024 10/04/2024 10/15/2024 1:24 AM EST documented as of this encounter Care Teams Chalk Extruding Machine Operator Relationship Specialty Start Date End Date Tomeka Sanon MD [address] [place] [phone] [email or web address] PCP - General Family Medicine 10/03/19 Schuyler Kamara MD [address] [place] [phone] [email or web address] Primary Oncologist Medical Oncology 08/16/20 documented as of this encounter Additional Source Comments The information contained in this document represents components of the legal health record. It is not the complete legal health record.[facility]
--- OUTSIDE RECORDS SUMMARY | 2025-10-12 09:01 | XMS_ITS | Encounter Summary ---
Author Organization [facility] Address [address] [place] [address] Phone Care Team Providers Care Marketing [employer] Name Role Phone Tomeka Sanon MD Primary Care Prov ider Schuyler Kamara MD Unavailable [phone] Reason for Referral * Outpatient Procedure - Closed Specialty Diagnoses / Procedures Referred By Rubi cardenas Referred To Contact Diagnoses Dyspnea, unspecified type Procedures Adult Echo TTE Tomeka Sanon MD Phone: tel: fax: [email or web address] Referral ID Status Reason Start Date Expiration Date Visits Re quested Visits Authorized [id number] Closed 03/24/2022 03/24/2023 1 1 Encounter Details Date Type Department Care Team (Late st Contact Info) Description 03/24/2022 Transcribe Orders Virtual Department [address] [place] [address] Tomeka Sanon MD [address] [place], [place] [phone] [email or web address] Dyspnea, unspecified type Social History Tobacco Use Types Packs/Day [...] Job Start Date Job End Date 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 Not on file Not on f ile documented as of this encounter Plan of Treatment Upcoming Encounters Date Type Department Care Team (Late st Contact Info) Description 11/25/2025 9:00 AM EST Office Visit [facility] [place] Hematology Oncology Clinic at [address] [address] Schuyler Kamara MD [address] [place] [address] [email or web address] documented as of this encounter Results * TTE COMPREHENSIVE (05/16/2022 9:11 AM EDT) Body Surface Area 1.81 m2 Height 163 cm Weight 75 kg Systolic BP 114 mmHg Diastolic BP 85 mmHg Left Atrium Dimension Anterior-Posterior 33 15 - 40 mm Aortic Valve Mean Gradient 3 mmHg Aortic Valve Time Velocity Integral 262 mm Aortic Valve Peak Velocity 122.0 cm/s Aortic Valve Peak Gradient 6 mmHg Aortic Sinus Diameter 33 mm Ascending Aorta Diameter 42 mm Inferior Vena Cava Diameter 16 0.0 - 21 mm Interventricular Septum Thickness 8 mm Left Ventricle Internal Diameter End Diastole 44 37 - 52 mm Left Ventricle Internal Diameter End Systole 31 22 - 35 mm Left Ventricular Outflow Tract Diameter 19.0 mm LVOT VTI REST 217 mm Left Ventricular Outflow Tract Velocity 1.0 m/s Left Ventricular Outflow Tract Gradient at Rest 4 mmHg Left Ventricular Posterior Wall Thickness 7 mm Ejection Fraction 57 50 - 75 Percent Mitral Valve A Wave Speed 89.1 cm/s Mitral Valve E Wave Speed 75.8 cm/s Right Ventricle Basal Diameter 21.3 25 - 41 mm Tricuspid Valve Peak Velocity 2.1 m/s Raw LV EF% 50 % Right Ventricle to Right Atrium Pressure Gradient 18 mmHg Aortic Valve Sinus Index 1 18 19 - 27 mm Ascending Aorta Diameter 23 mm Aortic Sinus Index 18 mm Ascending Aorta Index 23 mm Left Atrial Volume 17 mL Left Atrial Volume Index 9.39 mL/m2 Right Ventricle Peak Systolic Pressure 21 mmHg Right Ventricle TAPSE 24 mm Right Atrium Pressure Estimated 3 mmHg Right Ventricle Pulse Doppler S Wave 11.8 cm/s Anatomical Region Laterality Modality Heart Ultrasound Narrative 05/16/2022 3:46 PM EDT Normal LV size and function EF 60%. Normal PA pressure estimation. Trace aortic insufficiency. Normal RV size and function. Normal diastolic function. No clear cause for shortness of breath could be found. Compared to study from 2019, no change. Left Ventricle The left ventricular cavity size and wall thickness are normal. Left ventricular systolic function is normal. The estimated ejection fraction is 57% (Normal 50- 75%). The left ventricular ejection fraction was measured by visual estimate. Left ventricular diastolic function appears within normal limits for age. There is no evidence of left ventricular thrombus. Right Ventricle The right ventricular size is normal. Left Atrium The left atrium is normal in size. The left atrial anterior-posterior dimension measures 33 mm (normal 15-40 mm). Right Atrium The right atrium is normal in size. Normal pulmonary pressure. The IVC is normal in size (2.1cm or less). The IVC demonstrates normal collapse with inspiration which is consistent with normal RA pressure. Mitral Valve E/A ratio is 0.9. E/E' avg is 9.1. Lat E' velocity is 9.32 cm/s. Med E' velocity is 7.30 cm/s. There is no evidence of mitral stenosis. There is no evidence of mitral valve prolapse. There is trace to mild mitral regurgitation detected by spectral and color Doppler. Tricuspid Valve There is no evidence of tricuspid stenosis. The RV systolic pressure was estimated from the peak TV regurgitant velocity. The estimated RV systolic pressure is 21 mmHg assuming a right atrial pressure of 3 mmHg. The calculated peak RV-RA pressure gradient is 18 mmHg. Aortic Valve The aortic valve is tricuspid. There is no evidence of valvular aortic stenosis. There is evidence of trace aortic regurgitation by color and spectral Doppler. The aorta appears abnormal. Ascending aortic is 4.2 cm. Pulmonic Valve There is no evidence of pulmonic stenosis. There is evidence of trace pulmonary regurgitation by color and spectral Doppler. Pericardium There is no evidence of pericardial effusion. Interatrial Septum The interatrial septum appears normal. General Findings The image quality was fair (3). Technique(s) used in the evaluation: Color flow Doppler and Spectral Doppler. The predominant rhythm during the study was sinus. Comparison Findings Compared to a prior TTE from 09/13/2020 Tomeka Phan MD CV ECHO ORDERABLES Final Result documented in this encounter Visit Diagnoses Diagnosis Dyspnea, unspecified type Dyspnea, unspecified type documented in this encounter Additional Health Concerns Infection Onset Date Last Indicated Resolved Time CoV-Risk 10/04/2024 10/04/2024 10/15/2024 1:24 AM EST documented as of this encounter Care Teams Marketing [employer] Relationship Specialty Start Date End Date Tomeka Sanon MD [address] [place] [phone] [email or web address] PCP - General Family Medicine 10/03/19 Schuyler Kamara MD [address] [place] [phone] [email or web address] Primary Oncologist Medical Oncology 08/16/20 documented as of this encounter Additional Source Comments The information contained in this document represents components of the legal health record. It is not the complete legal health record.[facility]
--- OUTSIDE RECORDS SUMMARY | 2025-10-12 09:02 | XMS_ITS | Encounter Summary ---
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 documented as of this encounter Visit Diagnoses Not on filedocumented in this encounter Additional Health Concerns Infection Onset Date Last Indicated Resolved Time CoV-Risk 10/04/2024 10/04/2024 10/15/2024 1:24 AM EST documented as of this encounter Care Teams Thai Masseur Relationship Specialty Start Date End Date Tomeka Sanon MD [address] [place] [phone] [email or web address] PCP - General Family Medicine 10/03/19 Schuyler Kamara MD [address] [place] [phone] [email or web address] Primary Oncologist Medical Oncology 08/16/20 documented as of this encounter Additional Source Comments The information contained in this document represents components of the legal health record. It is not the complete legal health record.[facility]
--- OUTSIDE RECORDS SUMMARY | 2025-10-12 09:02 | XMS_ITS | Encounter Summary ---
Author Organization [facility] Address [facility] [address] [facility] [address] [place] [address] Phone Care Team Providers Care Triage Rn Name Role Phone Tomeka Sanon MD Primary Care Prov ider Tomeka Sanon MD Primary Care Prov ider Schuyler Kamara MD Unavailable [phone] Encounter Details Date Type Department Care Team (Late st Contact Info) Description 08/23/2017 Procedure Pass [facility] Endoscopy Admitting Dept Virtual Department [address] [place] [address] Social History Tobacco Use Types Packs/Day Years Used Date Smoking Tobacco: Unknown Alcohol Use Standard Drinks/Week Comments No 0 [...] 11/25/2025 9:00 AM EST Office Visit [facility] [place] Hematology Oncology Clinic at [facility] [address] [place] [address] Schuyler Kamara MD [address] [place] [address] [email or web address] documented as of this encounter Visit Diagnoses [...] documented as of this encounter Care Teams Triage Rn Relationship Specialty Start Date End Date Tomeka Sanon MD PCP - General 07/31/17 Tomeka Sanon MD [address] [place] [phone] [email or web address] PCP - General Family Medicine 10/03/19 Schuyler Kamara MD [address] [place] [address] [email or web address] Primary Oncologist Medical Oncology 08/16/20 documented as of this encounter Additional Source Comments The information contained in this document represents components of the legal health record. It is not the complete legal health record.[facility]
--- OUTSIDE RECORDS SUMMARY | 2025-10-12 09:02 | XMS_ITS | Encounter Summary ---
Author Organization [facility] Address [facility] [address] [place] [address] Phone Care Team Providers Care Shaper Operator Name Role Phone Tomeka Sanon MD Primary Care Prov ider Schuyler Kamara MD Unavailable [phone] Encounter Details Date Type Department Care Team (Late Contact Info) Description 10/17/2019 Procedure Pass [place] Admitting Dept - Virtual Department [address] [place] [address] Social History Tobacco Use Types Packs/Day Years [...] Description 11/25/2025 9:00 AM EST Office Visit [facility] [place] [facility] Oncology [facility] at [facility] [address] [place] [address] Schuyler Kamara MD 30 [place] [address] [email or web address] documented as of this encounter Visit Diagnoses [...] documented as of this encounter Care Teams Shaper Operator Relationship Specialty Start Date End Date Tomeka Sanon MD [address] [place] [phone] [email or web address] PCP - General Family Medicine 10/03/19 Schuyler Kamara MD [address] [place] [address] [email or web address] Primary Oncologist Medical Oncology 08/16/20 documented as of this encounter Additional Source Comments The information contained in this document represents components of the legal health record. It is not the complete legal health record.[facility]
--- OUTSIDE RECORDS SUMMARY | 2025-10-12 09:02 | XMS_ITS | Encounter Summary ---
Author Organization [facility] Address [address] [place] [address] Phone Care Team Providers Care Aircraft Structural Design Engineer Name Role Phone Tomeka Sanon MD Primary Care Prov ider Tomeka Sanon MD Primary Care Prov ider Schuyler Kamara MD Unavailable [phone] Reason for Referral * MRI/CAT Scan - Closed Specialty Diagnoses / Procedures Referred By Contmick t Referred To Contact Radiology Diagnoses Left knee pain, unspecified chronicity Procedures MRI Knee (Left) Nivia Brown PA Phone: tel: fax: Referral ID Status Reason Start Date Expiration Date Visits Re quested Visits Authorized [id number] Closed 01/10/2018 02/09/2018 1 1 Encounter Details Date Type Department Care Team (Late st Contact Info) Description 01/10/2018 Ancillary Orders Virtual Department 30 [place] [address] Nivia Brown PA [address] [place] [address] [place] [phone] Left knee pain, unspecified chronicity Social History Tobacco Use Types Packs/Day Years [...] Office Visit [facility] [place] Hematology Oncology Clinic at [address] [address] Schuyler Kamara MD [address] [place] [phone] [email or web address] documented as of this encounter Results * MRI KNEE WITHOUT CONTRAST (LEFT) (01/19/2018 8:07 AM EDT) Anatomical Region Laterality Modality Knee Left Magnetic Resonan ce 01/19/2018 8:28 AM EDT Impressions 01/19/2018 8:37 AM EDT 1. Uncomplicated tear of the posterior horn of the medial meniscus with intrasubstance degeneration. 2. Grade 1 medial collateral ligament sprain. 3. Mild osteoarthritis and small joint effusion. POS - [id number] Narrative 01/19/2018 8:37 AM EDT COMPARISON: None. TECHNIQUE: Exam performed on a 1.5 Ellie high-field MRI scanner. Axial proton density with fat suppression, coronal proton density and proton density with fat suppression, sagittal T1, oblique sagittal proton density and proton density with fat suppression parallel to the plane of the ACL sequences were obtained. MRI LEFT KNEE FINDINGS: Patella: No patella malalignment or chondromalacia. Menisci: Lateral meniscus is intact. No tear or discoid meniscus. There is increased intrasubstance signal within the posterior horn of the medial meniscus with fraying of the inferior articular surface in a faint linear oblique cleft within the free edge. No bucket-handle tear. Cruciate ligaments: Anterior and posterior cruciate ligaments are intact. Collateral ligaments: There is mild thickening of the medial collateral ligament with surrounding fluid. Lateral collateral ligament complex is intact. Extensor mechanism: Quadriceps and patellar tendons are intact. Bone marrow/joint: Joint spaces are maintained. Mild medial knee compartment spurring and minimal articular surface reactive marrow edema signal changes. No suspicious marrow signal changes. No malalignment. Small joint effusion. No Fernando's cyst. Large habitus. Small varicosities along the posterior medial knee joint line. Procedure Note Cyndee Barba MD - 01/19/2018 COMPARISON: None. TECHNIQUE: Exam performed on a 1.5 Ellie high-field MRI scanner. Axialproton density with fat suppression, coronal proton density and protondensity with fat suppression, sagittal T1, oblique sagittal proton densityand proton density with fat suppression parallel to the plane of the ACLsequences were obtained. MRI LEFT KNEE FINDINGS: Patella: No patella malalignment or chondromalacia. Menisci: Lateral meniscus is intact. No tear or discoid meniscus. Thereis increased intrasubstance signal within the posterior horn of the medialmeniscus with fraying of the inferior articular surface in a faint linearoblique cleft within the free edge. No bucket-handle tear. Cruciate ligaments: Anterior and posterior cruciate ligaments areintact. Collateral ligaments: There is mild thickening of the medial collateralligament with surrounding fluid. Lateral collateral ligament complex isintact. Extensor mechanism: Quadriceps and patellar tendons are intact. Bone marrow/joint: Joint spaces are maintained. Mild medial kneecompartment spurring and minimal articular surface reactive marrow edemasignal changes. No suspicious marrow signal changes. No malalignment.Small joint effusion. No Fernando's cyst. Large habitus. Smallvaricosities along the posterior medial knee joint line. IMPRESSION: 1. Uncomplicated tear of the posterior horn of the medial meniscus withintrasubstance degeneration. 2. Grade 1 medial collateral ligament sprain. 3. Mild osteoarthritis and small joint effusion. POS - [id number] Nivia MANZANARES IMG MR EXTREMITY Final Res ult documented in this encounter Visit Diagnoses Diagnosis Left knee pain, unspecified chronicity Left knee pain, unspecified chronicity documented in this encounter Additional Health Concerns [...] documented as of this encounter Care Teams Aircraft Structural Design Engineer Relationship Specialty Start Date End Date Tomeka Sanon MD [email or web address] PCP - General 07/31/17 Tomeka Sanon MD [address] [place] [phone] [email or web address] PCP - General Family Medicine 10/03/19 Schuyler Kamara MD [address] [place] [phone] [email or web address] Primary Oncologist Medical Oncology 08/16/20 documented as of this encounter Additional Source Comments The information contained in this document represents components of the legal health record. It is not the complete legal health record.[facility]
--- OUTSIDE RECORDS SUMMARY | 2025-10-12 09:02 | XMS_ITS | Encounter Summary ---
Author Organization [facility] Address [facility] [address] [place] [address] Phone Care Team Providers Care Marketing [employer] Name Role Phone Tomeka Sanon MD Primary Care Prov ider Schuyler Kamara MD Unavailable [phone] Encounter Details Date Type Department Care Team (Late Contact Info) Description 01/22/2020 Telephone [facility] H[facility]ology Oncology Clinic at [address] [address] Schuyler Kamara MD [address] [place] [phone] [email or web address] Social History Tobacco Use Types Packs/Day Years [...] Description 11/25/2025 9:00 AM EST Office Visit [facility] [place] [facility] at [facility] [address] [place] [address] Schuyler Kamara MD [address] [place] [address] [email or web address] documented as of this encounter Visit Diagnoses [...] criteria for screening can be found on [employer]. 02/05/2020 02/05/2020 02/08/2020 1:23 AM E DT CoV-Risk 10/04/2024 10/04/2024 10/15/2024 1:24 AM EST documented as of this encounter Care Teams Marketing [employer] Relationship Specialty Start Date End Date Tomeka Sanon MD [address] [place] [phone] [email or web address] PCP - General Family Medicine 10/03/19 Schuyler Kamara MD [address] [place] [address] Primary Oncologist Medical Oncology 08/16/20 documented as of this encounter Additional Source Comments The information contained in this document represents components of the legal health record. It is not the complete legal health record.[facility]
--- OUTSIDE RECORDS SUMMARY | 2025-10-12 09:02 | XMS_ITS | Clinical Summary ---
Author Organization [facility] Address [address] [place] [address] Care Team Providers Care Bicycle Taxi Driver Name Role Phone Unavailable Primary Care [...] age to complete this topic Insurance Medicare [facility]
== END 2025-10-12 10:02 | disposition home or self-care (01) ==
LOC: HO.HSMS 08:52
PROVIDERS: PCP Family Medicine; Visit Provider Nurse Practitioner Family
DX: G25.9 Extrapyramidal and movement disorder, unspecified (principal); R26.9 Unspecified abnormalities of gait and mobility; G47.52 REM sleep behavior disorder; R06.83 Snoring; R41.89 Other symptoms and signs involving cognitive functions and awareness; R13.10 Dysphagia, unspecified; H53.2 Diplopia
CPT/HCPCS: 99214

== ENCOUNTER → 2025-10-12 08:51 | Outpatient (BNVA) | payer MEDICARE, OTHER, SELFPAY | PROVIDERS: PCP Family Medicine; Visit Provider Nurse Practitioner Family | DX: G25.9 Extrapyramidal and movement disorder, unspecified (principal); F07.81 Postconcussional syndrome; R26.9 Unspecified abnormalities of gait and mobility; H53.2 Diplopia; R13.10 Dysphagia, unspecified; G47.52 REM sleep behavior disorder; R06.83 Snoring; F09 Unspecified mental disorder due to known physiological condition | CPT/HCPCS: 99212 ==